=== PATIENT | male | born 1950 | race Caucasian/White ===

== ENCOUNTER 2018-01-28 10:58 | Inpatient (IN) | payer OTHER, MEDICARE ==
[~2018-01-28] VITALS: Ht 175.3 cm; Wt 90.3 kg
[2018-01-28] VITALS (8 sets, daily range): BP systolic 106–157; BP diastolic 41–105
[2018-01-28] MEDS ORDERED: IV NS 0.9% 500 ML BAG IV ONE (11:30)
--- NOTE | 2018-01-28 11:30 | NUR ---
AIMEE FROM [facility]=[id number] RECTAL TEMP, TYLENOL WAS GIVEN IN THE FACILITY. NOTED VENT, TRACH, OBTUNDED. RT AT BS. SEEN BY MD FOR EVAL. SAFETY AND COMFORT MEASURES PROVIDED.
--- NOTE | 2018-01-28 11:31 | NUR ---
NOTED RFA 22G IV ACCESS HAND PACKER/PACKAGER.
[2018-01-28 11:41] LABS: BASOPHILS # (AUTO) 0.1 /CMM (0.0-0.2); EOSINOPHILS % (AUTO) 2.2 % (0.0-6.0); LYMPHOCYTES # (AUTO) 1.1 /CMM (0.8-4.8); LYMPHOCYTES % (AUTO) 10.1 % (20.0-44.0); MEAN CORPUSCULAR HEMOGLOBIN 29 PG (26.0-33.0); MEAN CORPUSCULAR HGB CONC 33 g/dl (31.0-36.0); MEAN CORPUSCULAR VOLUME 86 fL (80-96); MONOCYTES # (AUTO) 0.5 /CMM (0.1-1.30); MONOCYTES % (AUTO) 4.8 % (2.0-12.0); NEUTROPHILS # (AUTO) 9.2 /CMM (1.8-8.9); NEUTROPHILS % (AUTO) 81.9 % (43.0-81.0); PLATELET COUNT (AUTO) 174 /CMM (150-450); RDW COEFFICIENT OF VARIATION 16.5 (11.5-15.0); RED BLOOD CELL COUNT(AUTO) 2.36 MIL/uL (4.5-6.0); WHITE BLOOD COUNT (AUTO) 11.1 K/uL (4.3-11.0)
[2018-01-28 11:44] LABS: HEMATOCRIT 20 % (39-51)
[2018-01-28 11:45] LABS: INR 1.16 (0.85-1.15)
[2018-01-28 11:47] LABS: HEMOGLOBIN 6.8 g/dL (13.5-17.5)
[2018-01-28 11:50] LABS: ALANINE AMINOTRANSFERASE 18 U/L (12-78); ALKALINE PHOSPHATASE 141 U/L (46-116); ASPARTATE AMINOTRANSFERASE 30 U/L (15-37); BILIRUBIN,DIRECT 0.2 mg/dL (0.0-0.2); BILIRUBIN,TOTAL 0.5 mg/dL (0.2-1.0); CALCIUM, SERUM 9.4 mg/dL (8.5-10.1); CARBON DIOXIDE 27 mmol/L (21-32); CHLORIDE 101 mmol/L (98-107); CREATININE 4.2 mg/dL (0.6-1.3); GLUCOSE 128 mg/dL (74-106); POTASSIUM 4.1 mmol/L (3.5-5.1); SODIUM SERUM 138 mmol/L (136-145); TOTAL PROTEIN, SERUM 8.2 g/dL (6.4-8.2); UREA NITROGEN, BLOOD 68 mg/dL (7-18)
[2018-01-28 11:52] LABS: TROPONIN I 0.236 ng/mL (0.00-0.056)
--- NOTE | 2018-01-28 12:00 | NUR ---
PT NOTED IN SOILED DIAPER, CLEANED AND CHANGED. KEPT CLEAN AND COMFORTABLE.
--- NOTE | 2018-01-28 12:04 | NUR ---
MD AT BS WITH FAMILY AND UPDATED WITH POC.
--- NOTE | 2018-01-28 12:05 | NUR ---
FAMILY MEMBERS SIGNED BLOOD CONSENT. VERBALIZES UDNERSTANDING.
--- NOTE | 2018-01-28 12:10 | NUR ---
IN AND OUT CATH DONE- NO OUTPUT NOTED.
--- NOTE | 2018-01-28 12:19 | NUR ---
Contact INFO: Feranndez (Son) [phone] Jeronimo (Daughter) [phone]
--- NOTE | 2018-01-28 12:22 | NUR ---
CALLED NURSE SUP FOR TELE BED
[2018-01-28] MEDS ORDERED: PROT946L GT (12:33)
[2018-01-28] MEDS ORDERED: VANC1VIA IV (12:33)
[2018-01-28] MEDS ORDERED: ONDA4TAB5 GT (12:33)
[2018-01-28] MEDS ORDERED: FOLI0.8T23 GT (12:33)
[2018-01-28] MEDS ORDERED: DIPH50CA37 GT (12:33)
[2018-01-28] MEDS ORDERED: HYDR-552 GT ×2 (12:33)
[2018-01-28] MEDS ORDERED: IPRA3AMP23 IH ×2 (12:33)
[2018-01-28] MEDS ORDERED: MERO500V3 IV (12:33)
[2018-01-28] MEDS ORDERED: PANT40TA2 GT (12:33)
--- NOTE | 2018-01-28 12:35 | NUR ---
DR. JAMES MARTINEZ AT AND ORDERED- NO BP AND BLOOD DRAW ON BILATERAL UPPER EXTREMITIES.
[2018-01-28] MEDS ORDERED: NUT.237L67 GT (12:37)
--- NOTE | 2018-01-28 13:03 | NUR ---
REPORT GIVEN TO ANNEL VINSON FOR TELE 329.
[2018-01-28 13:14] LABS: BAND % (MANUAL) 1 % (0.0-5.0); EOSINOPHILS % (MANUAL) 3 % (0-4); LYMPHOCYTES % (MANUAL) 6 % (16-48); MONOCYTES % (MANUAL) 4 % (0-11.0); NEUTROPHILS % (MANUAL) 86 (42-76)
--- NOTE | 2018-01-28 13:20 | NUR ---
PATTERN ASSEMBLER NOTES RECEIVED PATIENT FROM ER. ADMITTED FROM [facility] D/T FEVER OF 100.7F. PATIENT IS ALERT AND ORIENTED X0. NONVERBAL. ONLY RESPONDS TO TOUCH/LIGHT PAIN. BEDFAST. IN STABLE CONDITION. NO ACUTE DISTRESS. NOTED WITH AN IV LINE ON RIGHT FA #22. INTACT AND PATENT. PATIENT ALSO WITH GT - INTACT AND PATENT. ON VENT WITH FI02 40%, TIDAL VOLUME 500ML, AND PEEP 5 CMH2O. VITAL SIGNS TAKEN BP 140/98, HR 73, 98.8F, RR 18, O2SAT 100%. ALL OTHER NEEDS CARED FOR. CALL LIGHT WITHIN REACH. BED ON LOWEST LOCKED POSITION. WILL CONTINUE TO MONITOR.
[2018-01-28] MEDS ORDERED: ONDANSETRON 4 MG TAB.RAPDIS GT PRN (17:30)
[2018-01-28] MEDS ORDERED: NEPRO VAN 237 ML CAN GT SCH (17:30)
[2018-01-28] MEDS ORDERED: IPRATROPIUM NEB FS 0.5 MG/2.5 ML AMPUL.NEB NEB PRN (17:30)
[2018-01-28] MEDS ORDERED: FEE PK DOSING 1 MIN EA MC ONE (18:00)
[2018-01-28] MEDS ORDERED: ALBUTEROL FS 2.5 MG/0.5 ML VIAL.NEB NEB PRN (18:00)
--- NOTE | 2018-01-28 18:51 | NUR ---
HEAD OF COMMISSION DEPARTMENT CLOSING NOTES PATIENT IN BED WITH EYES CLOSED. PATIENT IS ALERT AND ORIENTED X0. NONVERBAL. ONLY RESPONDS TO TOUCH/LIGHT PAIN. BEDFAST. IN STABLE CONDITION. NO ACUTE DISTRESS. NOTED WITH AN IV LINE ON RIGHT FA #22. INTACT AND PATENT. PATIENT ALSO WITH GT - INTACT AND PATENT. ON VENT WITH FI02 40%, TIDAL VOLUME 500ML, AND PEEP 5 CMH2O. VITAL SIGNS TAKEN BP 140/98, HR 73, 98.8F, RR 18, O2SAT 100%. PATIENT HAS A RIGHT AND LEFT FOREARM GRAFT FOR DIALYSIS BUT ONLY THE LEFT SIDE WORKS. PATIENT IS CURRENTLY RECEIVING DIALYSIS WELL 1 UNIT OF BLOOD TRANSFUSION D/T H&H OF 6.03/26. PER MD, NO BLOOD DRAW AND BP CHECK ON BOTH ARMS - CURRENTLY USING JUST THE RIGHT LEG. DR. MARTINEZ WITH ORDERS TO CONTINUE MEDICATIONS FROM [facility] FOR TOMORROW AM. SKIN CHECK RENDERED. ALL OTHER NEEDS CARED FOR. CALL LIGHT WITHIN REACH. BED ON LOWEST LOCKED POSITION. WILL ENDORSE TO ONCOMING NURSE FOR CONTINUITY OF CARE.
--- NOTE | 2018-01-28 19:18 | NUR ---
LABORATORY EQUIPMENT CLEANER NOTES 1 UNIT PRBC TRANSFUSED WITH DIALYSIS ORDERED BY DR. MARTINEZ, TOLERATED WELL, VITALS STABLE.
--- NOTE | 2018-01-28 19:30 | NUR ---
RN OPENING NOTES RECEIVED PT IN BED, EYES CLOSED, AROUSABLE TO TOUCH/LIGHT PAIN, IN NO ACUTE DISTRESS, NON VERBAL, ON VENT WITH O2 SAT @ 98%, ON TELE MONITORING WITH SR @ 60S-70S. PT IN STABLE CONDITION, S/P HD WITH 2L OUT PER REPORT OF HD NURSE. PT WITH IVP LINE ON RFA G#22, INTACT AND PATENT. RECEIVED REPORT FROM AM SHIFT NURSE AND PER MED REC, PT HAS RECEIVED VANCOMYCIN TODAY PRIOR TO ADMISSION SO THERE IS NO NEED TO ADMINISTER VANCO POST HD. ALL PATIENT'S NEEDS ATTENDED TO AT THIS TIME. WILL CONTINUE TO MONITOR.
[2018-01-28] MEDS: IPRATROPIUM NEB FS 0.5 MG/2.5 ML AMPUL.NEB NEB SCH (19:38)
[2018-01-28] MEDS: ALBUTEROL FS 2.5 MG/0.5 ML VIAL.NEB NEB SCH (19:39)
[2018-01-28] MEDS: NEPRO 1,000 ML BOTTLE GT PRN (20:26)
[2018-01-29] VITALS (7 sets, daily range): BP systolic 67–153; BP diastolic 40–93
[2018-01-29] MEDS: ALBUTEROL FS 2.5 MG/0.5 ML VIAL.NEB NEB SCH ×4 (01:04→20:00)
[2018-01-29] MEDS: IPRATROPIUM NEB FS 0.5 MG/2.5 ML AMPUL.NEB NEB SCH ×4 (01:04→20:00)
--- NOTE | 2018-01-29 01:20 | NUR ---
RN NOTE PATIENT NOTED WITH LOOSE WATERY STOOL. RECEIVED ORDER TO TEST FOR STOOL FOR CDIFF. SPECIMEN PICKED UP BY PHARMACY PER C-DIFF PROTOCOL.
[2018-01-29] MEDS: HYDROCODONE/APAP 5/325MG 1 EACH TABLET GT PRN (01:39)
[2018-01-29] MEDS: diphenhydrAMINE HCL 50 MG CAPSULE PO PRN (05:53)
--- NOTE | 2018-01-29 06:23 | NUR ---
RN CLOSING NOTES PATIENT IN BED, ASLEEP, AROUSABLE BY TOUCH. PT IS ON VENT WITH TRACH, O2 SAT @ 94-100%. IN NO ACUTE DISTRESS AT THIS TIME, AFEBRILE. PT TURNED AND REPOSITIONED [id number], DRESSINGS CHANGED, HEELS OFFLOADED. PT IS RECEIVING GTF ORDERED AND IS TOLERATING WELL. ALL PATIENT'S NEEDS ATTENDED TO THROUGHOUT THE SHIFT, WILL ENDORSE TO AM SHIFT NURSE FOR CONTINUITY OF CARE.
[2018-01-29] MEDS: PANTOPRAZOLE 40 MG/PACK PACK GT SCH (07:14)
--- NOTE | 2018-01-29 07:30 | NUR ---
MANUFACTURING QUALITY ENGINEER OPENING NOTES. PT RECEIVED EYES OPEN NON VERBAL. PT TRACH AND VENT DEPENDEDNT, SETTINGS CORRECT ALARMS ON AND PLUGGED TO RED P.POINTS. PT WITHOUT S/S OF RESP DISTRESS, 2NDARY CONT. PUSLE OX IN.SITU AND OPERATIONAL. PT WITHOUT S/S OF PAIN OR DISCOMFORT. PT APPEARS YELLOWED AND PALE. PT REPOSITIONED. PT TEMP 99.7, COOLING MEASURES CONTINUED. PT BP UNAVAILABLE ON BI LAT LE X3RN WITH AUTO OR MANUAL. LIMBS WARM TO TOUCH. PT MOVING, SCRATCHING AND EYES INTERMITTENTLY OPEN. PT WITH IVC AT L FA INTACT AND SALINE FLUSH PATENT. PT WITH BI LAT UE HD CATH WITH NAD. G TUBE INTACT AND OPERATIONAL. PT BED IN LOWEST LOCKED POSITION WITH HANDRAILSX4, HOB ELEVATED. WILL CONTINUE POC.
[2018-01-29] MEDS: HYDROCODONE/APAP 5/325MG 1 EACH TABLET GT SCH (09:00)
[2018-01-29] MEDS ORDERED: MEROPENEM 500 MG VIAL IV SCH (09:00)
[2018-01-29] MEDS ORDERED: VANCOMYCIN 1 GM VIAL IV SCH (09:00)
[2018-01-29] MEDS: PROSOURCE / PROSTAT (PYXIS) 30 ML UDC GT SCH (09:09)
[2018-01-29] MEDS: MEROPENEM 500 MG in IV NS 0.9% 50 ML IV SCH (09:10)
[2018-01-29] MEDS: VIT B CMPLX 3/FA/VIT C/BIOTIN 1 TAB TABLET GT SCH (09:10)
[2018-01-29 09:35] LABS: BASOPHILS # (AUTO) 0.1 /CMM (0.0-0.2); BASOPHILS % (AUTO) 0.5 % (0.0-2.0); EOSINOPHILS % (AUTO) 1.9 % (0.0-6.0); HEMATOCRIT 24 % (39-51); HEMOGLOBIN 7.5 g/dL (13.5-17.5); LYMPHOCYTES # (AUTO) 1.2 /CMM (0.8-4.8); LYMPHOCYTES % (AUTO) 12.1 % (20.0-44.0); MEAN CORPUSCULAR HEMOGLOBIN 28 PG (26.0-33.0); MEAN CORPUSCULAR HGB CONC 32 g/dl (31.0-36.0); MEAN CORPUSCULAR VOLUME 88 fL (80-96); MONOCYTES # (AUTO) 0.6 /CMM (0.1-1.30); MONOCYTES % (AUTO) 6.2 % (2.0-12.0); NEUTROPHILS # (AUTO) 8.1 /CMM (1.8-8.9); NEUTROPHILS % (AUTO) 79.3 % (43.0-81.0); PLATELET COUNT (AUTO) 157 /CMM (150-450); RDW COEFFICIENT OF VARIATION 17.4 (11.5-15.0); RED BLOOD CELL COUNT(AUTO) 2.69 MIL/uL (4.5-6.0); WHITE BLOOD COUNT (AUTO) 10.2 K/uL (4.3-11.0)
[2018-01-29 09:36] LABS: CALCIUM, SERUM 8.8 mg/dL (8.5-10.1); CREATININE 3.6 mg/dL (0.6-1.3); POTASSIUM 3.8 mmol/L (3.5-5.1)
[2018-01-29 09:45] LABS: TROPONIN I 0.254 ng/mL (0.00-0.056)
--- NOTE | 2018-01-29 10:10 | NUR ---
BALLOON DIPPER NOTES. PT WITH CRITICAL LAB RESULT- LACTIC 2.7. MESSAGE LEFT WITH MD JUAN BOYD GROUP ANSWERING SERVICE. AWAITING RESPONSE.
--- NOTE | 2018-01-29 10:45 | NUR ---
VAPOR COATER NOTES. MD CONTACTED LEFT MESSAGE WITH SERVICE, AWAITING RESPONSE. TEXTED WITH SECURE TEXTING FROM CN PHONE.
[2018-01-29 10:57] LABS: THYROID STIMULATING HORMONE 7.373 uIU/mL (0.358-3.74)
--- NOTE | 2018-01-29 11:05 | NUR ---
SUPERINTENDENT COLLIERY NOTES. RT RV PT- PT OK.
--- NOTE | 2018-01-29 11:20 | NUR ---
TRANSPORT OPERATIONS INSPECTOR NOTES. MD CONTACTED LEFT MESSAGE, NOW NUMBER 3 WITH SERVICE, AWAITING RESPONSE.
--- NOTE | 2018-01-29 15:00 | NUR ---
SHELL SORTER NOTES. PT WITH EPISODE OF TACHYCARDIA 125. TELE IN PLACE OPERATIONS SUPERVISOR AWARE.
[2018-01-29] MEDS ORDERED: IV NS 0.9% 500 ML IV STA (15:43)
[2018-01-29] MEDS ORDERED: ALBUMIN 25% 25 GM in PREMIX 1 EA IV ONE (17:00)
[2018-01-29] MEDS: NEPRO 1,000 ML BOTTLE GT PRN (17:23)
[2018-01-29] MEDS: MIDODRINE HCL (5MG) 5 MG TABLET PO SCH (17:25)
[2018-01-29] MEDS ORDERED: PERMETHRIN 5% CRM 60 GM TUBE TP ONE (19:00)
--- NOTE | 2018-01-29 19:15 | NUR ---
RN OPENING NOTES RECEIVED PT IN BED, ON VENT, IN NO ACUTE DISTRESS AT THIS TIME, AFEBRILE, O2 SAT WNL, VSS AT BASELINE. RECEIVED REPORT FROM AM SHIFT NURSE THAT PT NEEDS A BLOOD TRANSFUSION DUE TO LOW BP WHICH IS PT'S CHRONIC CONDITION PER MD, DR. SIMON. ALL PATIENT'S NEEDS ATTENDED TO AT THIS TIME. PATIENT RECEIVING GTF ORDERED. PLACED CALL LIGHT WITHIN EASY REACH. BED IN LOW POSITION AND LOCKED IN PLACE.WILL CONTINUE TO MONITOR PT.
--- NOTE | 2018-01-29 19:31 | NUR ---
TEL RN CLOSING. PT WITH TRACH AND VENT SETTING CONTINUED WITHOUT CHANGE, G TUBE AND IVC INTACT AND OPERATIONAL. PT WITHOUT DISTRESS OR DISCOMFORT. ALL DAY NURSE DUTIES ATTENDED TO. ENDORSED TO NIGHT NURSE AT BEDSIDE FOR KASSANDRA.
--- NOTE | 2018-01-29 20:01 | NUR ---
PATIENT RCVD TRACHED ON [facility] VENT WITH NOTED SETTINGS. VENT PLUGGED INTO RED OUTLET, VENT ALARMS SET AND AUDIBLE. CUFF PRESSURE CHECKED INDUSTRIAL SPRAY PAINTER. BREATHING TX GIVEN PER MD'S ORDERED. NO ADVERSE REACTION NOTED. SUCTIONED WITH MODERATE AMOUNT OF YELLOW/PARRISH THICK SECRETIONS. NO RESPIRATORY DISTRESS NOTED AT THIS TIME. AMBU BAG AT [facility]. WILL CONTINUE TO MONITOR.
[2018-01-29] MEDS: METRONIDAZOLE 500 MG TABLET PO SCH (20:26)
[2018-01-29] MEDS: FLUCONAZOLE (100 MG) 100 MG TABLET PO SCH (20:27)
--- NOTE | 2018-01-29 21:31 | NUR ---
RN NOTE PT NOTED TO HAVE TEMP OF 99.3. PAGED HISTOPATHOLOGY TECHNICIAN MD. WAITING FOR CALL BACK.
--- NOTE | 2018-01-29 21:38 | NUR ---
RN NOTE RECEIVED CALL FROM DR. SIMON WITH NEW ORDER FOR ACETAMINOPHEN 650 MG Q6 PRN TO BE GIVEN VIA GTUBE. INFORMED MD THAT PT HAS A NEW IVP LINE ON THE RIGHT WRIST WHERE THE NON WORKING HD GRAFT IS AND WILL USE SITE WHILE WAITING FOR MIDLINE INSERTION. OK WITH .
[2018-01-29] MEDS: ACETAMINOPHEN 325 MG TABLET PO PRN (21:57)
--- NOTE | 2018-01-29 23:47 | NUR ---
RN NOTE PATIENT STARTED ON BLOOD TRANSFUSION. VITAL SIGNS AT BASELINE. WILL CONTINUE TO MONITOR PT.
[2018-01-30] VITALS (40 sets, daily range): BP systolic 51–155; BP diastolic 14–111
[2018-01-30] MEDS: diphenhydrAMINE HCL 50 MG CAPSULE PO PRN (01:19)
[2018-01-30] MEDS: ALBUTEROL FS 2.5 MG/0.5 ML VIAL.NEB NEB SCH ×4 (02:36→19:29)
[2018-01-30] MEDS: IPRATROPIUM NEB FS 0.5 MG/2.5 ML AMPUL.NEB NEB SCH ×4 (02:37→19:29)
--- NOTE | 2018-01-30 03:12 | NUR ---
RN NOTE BLOOD TRANSFUSION ENDED COMPLETED. PT WITH NO NOTED ASE, AFEBRILE, VITAL SIGNS AT BASELINE. WILL CONTINUE TO MONITOR PT.
[2018-01-30] MEDS: METRONIDAZOLE 500 MG TABLET PO SCH ×2 (04:59→13:51)
--- NOTE | 2018-01-30 06:53 | NUR ---
RN NOTES PATIENT IN BED, REMAINS NON VERBAL, A&O X 0, WITH RFA IV PERIPHERAL LINE G#22, INTACT AND PATENT, GTF INFUSING ORDERED AND PT IS TOLERATING WELL, ON TELE MONITORING WITH SR WITH V-PACING @ 75. PT TURNED AND REPOSITIONED Q2H. PT WITH EPISODES OF HYPOTENSION THROUGHOUT THE SHIFT WHICH IS PT'S BASELINE. 1 PRBC TRANSFUSED WITHIN THE SHIFT WITH NO NOTED ADVERSE SIDE EFFECTS. PT AFEBRILE. ALL PATIENT'S NEEDS ATTENDED TO THROUGHOUT THE SHIFT. PLACED CALL LIGHT WITHIN REACH AND BED IN LOW POSITION AND LOCKED IN PLACE. WILL ENDORSE TO AM SHIFT NURSE FOR CONTINUITY OF CARE.
[2018-01-30] MEDS: PANTOPRAZOLE 40 MG/PACK PACK GT SCH (07:32)
--- NOTE | 2018-01-30 08:00 | NUR ---
CUSTOMER SERVICES SUPERVISOR NOTES PATIENT IN BED RESTING NO SOB OR ACUTE DISTRESS NOTED. PATIENT VENT DEPENDENT. VENT SETTINGS NOTED. PATIENT IN STABLE CONDITION. PERIPHERAL IV INTACT PATENT. BED IN LOW LOCKED POSITION. CALL LIGHT WITHIN REACH. WILL CONTINUE TO MONITOR.
[2018-01-30 08:59] LABS: BASOPHILS % (AUTO) 0.3 % (0.0-2.0); EOSINOPHILS % (AUTO) 2.6 % (0.0-6.0); HEMATOCRIT 27 % (39-51); HEMOGLOBIN 8.8 g/dL (13.5-17.5); LYMPHOCYTES # (AUTO) 0.9 /CMM (0.8-4.8); LYMPHOCYTES % (AUTO) 7.8 % (20.0-44.0); MEAN CORPUSCULAR HEMOGLOBIN 28 PG (26.0-33.0); MEAN CORPUSCULAR HGB CONC 33 g/dl (31.0-36.0); MEAN CORPUSCULAR VOLUME 87 fL (80-96); MONOCYTES # (AUTO) 0.6 /CMM (0.1-1.30); MONOCYTES % (AUTO) 5.2 % (2.0-12.0); NEUTROPHILS # (AUTO) 9.3 /CMM (1.8-8.9); NEUTROPHILS % (AUTO) 84.1 % (43.0-81.0); PLATELET COUNT (AUTO) 145 /CMM (150-450); RDW COEFFICIENT OF VARIATION 16.5 (11.5-15.0); RED BLOOD CELL COUNT(AUTO) 3.11 MIL/uL (4.5-6.0); WHITE BLOOD COUNT (AUTO) 11.1 K/uL (4.3-11.0)
[2018-01-30] MEDS ORDERED: EPOETIN ALFA (10,000 UNIT) 10,000 UNIT/ML VIAL SQ ONE (09:00)
[2018-01-30] MEDS: MIDODRINE HCL (5MG) 5 MG TABLET PO SCH ×3 (09:00→16:10)
[2018-01-30] MEDS: HYDROCODONE/APAP 5/325MG 1 EACH TABLET GT SCH (09:11)
[2018-01-30] MEDS: VIT B CMPLX 3/FA/VIT C/BIOTIN 1 TAB TABLET GT SCH (09:11)
[2018-01-30] MEDS: MEROPENEM 500 MG in IV NS 0.9% 50 ML IV SCH (09:11)
[2018-01-30] MEDS: FLUCONAZOLE (100 MG) 100 MG TABLET PO SCH (09:11)
[2018-01-30] MEDS: PROSOURCE / PROSTAT (PYXIS) 30 ML UDC GT SCH (09:11)
[2018-01-30 09:19] LABS: CALCIUM, SERUM 8.9 mg/dL (8.5-10.1); CREATININE 4.4 mg/dL (0.6-1.3); MAGNESIUM 2.2 mg/dL (1.8-2.4); PHOSPHORUS 5.9 mg/dL (2.5-4.9); POTASSIUM 3.8 mmol/L (3.5-5.1)
[2018-01-30] MEDS ORDERED: NEPRO 1,000 ML BOTTLE GT PRN (11:00)
[2018-01-30] MEDS: NEPRO 1,000 ML BOTTLE GT PRN (15:07)
--- NOTE | 2018-01-30 15:30 | NUR ---
MATERIALS ENGINEERING TECHNICIAN NOTES PATIENT NOTED WITH BP OF 69/40 PULSE 83 RESPIRATION OF 18 TEMP OF 98.3. PATIENT OPENS EYES TO PAINFUL STIMULI. PATIENT VENT TRACH DEPENDENT. DR. SIMON NOTIFIED WAITING FOR ORDERS. CHARGE NURSE MADE AWARE.
--- NOTE | 2018-01-30 15:45 | NUR ---
DOSIMETRIST NOTES HD CANCELLED DUE TO LOW BP.
--- NOTE | 2018-01-30 16:00 | NUR ---
ENGINEER GEOPHYSICAL LABORATORY NOTES PAGED DR. SIMON AGAIN ORDERS TO GIVE ALBUMIN 25% ALBUMIN 100ML. ORDERS NOTED AND CARRIED OUT. MIDODRINE ADMINISTERED SCHEDULED. WILL RECHECK AND REEVALUATE.
--- NOTE | 2018-01-30 16:30 | NUR ---
RICE DRIER NOTES BP RECHECK NOTED TO BE 60/40 PULSE [address] SIMON PAGED WAITING FOR CALL BACK. CHARGE NURSE MADE AWARE WAITING FOR CALL BACK.
[2018-01-30] MEDS ORDERED: ALBUMIN 25% 25 GM in PREMIX 1 EA IV PRN (17:00)
[2018-01-30] MEDS ORDERED: ALBUMIN 25% 25 GM in PREMIX 1 EA IV ONE (17:00)
--- NOTE | 2018-01-30 17:00 | NUR ---
HERB GROWER NOTES PAGED DR. SIMON AGAIN WAITING FOR CALL BACK. PATIENT ASYMPTOMATIC. OPENS EYES TO PAINFUL STIMULI. TRACH AND VENT DEPENDENT.
--- NOTE | 2018-01-30 17:30 | NUR ---
MANAGER GLOBAL NOTES PAGED DR. SIMON AGAIN FOR BP OF 68/40 PULSE 73 O2 SAT. 91%. WITH ORDERS TO TRANSFER PATIENT TO ICU. ORDERS NOTED AND CARRIED OUT. WAITING FOR BED FROM LOCKSTITCH BINDER.
--- NOTE | 2018-01-30 18:00 | NUR ---
CORPORATE SECURITY MANAGER NOTES PATIENT TRANSFERRED TO ICU ROOM 256 REPORT GIVEN TO NADINE VINSON. PATIENT IN FAIR CONDITION.
--- NOTE | 2018-01-30 18:20 | NUR ---
PATIENT RECEIVED TRACHED ON MECHANICAL VENTILATION. PORTEX [address] SX DONE. SMALL THICK WHITE SECRETIONS NOTED. TRACH SECURED AND PATENT AT ALL TIMES. VENT PLUGGED INTO RED OUTLET. ALARMS ON AND AUDIBLE. CHEPEU BAG @ HOB. NO DISTRESS NOTED. MONITORED CLOSELY. PULSE OX PROBE CONNECTED ON EAR. Addendum: 01/30/18 at 1821 by VINCE JACKSON RT Amended: Links added.
--- NOTE | 2018-01-30 19:35 | NUR ---
RN NOTES RECEIVED TRANSFER PT FROM [facility] DUE TO HYPOTENSION, WITH TRACH PORTEX 7 CONNECTED TO VENT AC 16 TV 500 FIO2 40% PEEP 5 BY RT. PT IS ABLE TO OPEN EYES. SR ON TELE MONITOR IV SITE ON VEE MIDLINE AND RFA G [address] MARTINEZ (MICA MACHINE OPERATOR) FOR AN ORDER . PT SBP AT THIS TIME IS < 60'S-70'S. SATURATION 95%.. KEPT PT CLEAN AND DRY. WILL CLOSELY MONITOR.
--- NOTE | 2018-01-30 20:20 | NUR ---
RN NOTES CALLED DR. CONLEY DUE TO ESL INSTRUCTOR MD DID NOT NOT CALL BACK YET. INFORMED ABOUT THE PATIENT BP AND PT STATUS. WAITING FOR THE CALL BACK.
--- NOTE | 2018-01-30 20:37 | NUR ---
RN NOTES CALLED DR. SIMON SINCE DR. SIMON ORDERED TO TRANSFER THE PT. TO ICU AND STILL WAITING FOR QUALITY ASSURANCE SUPERVISOR BODY TO CALL BACK WELL DR. CONLEY. WAITING FOR THEM TO CALL BACK. PT SBP AT THIS TIME STILL 70'S. TRACH AND VENT TOLERATED WELL.
--- NOTE | 2018-01-30 20:48 | NUR ---
RN NOTES RECEIVED AN ORDER FROM DR. CONLEY TO START NEOSYNEPHRINE TO KEEP SBP >80MMHG. NOTED AND CARRIED OUT ORDERS. LINH SIMPSON
[2018-01-30] MEDS: PHENYLEPHRINE 80 MG in IV D5W 250 ML IV PRN (21:18)
[2018-01-31] VITALS (84 sets, daily range): BP systolic 33–176; BP diastolic 16–86
[2018-01-31] MEDS ORDERED: PHENYLEPHRINE 10 MG/ML VIAL ONE (00:32)
[2018-01-31] MEDS: ALBUTEROL FS 2.5 MG/0.5 ML VIAL.NEB NEB SCH ×4 (00:44→19:50)
[2018-01-31] MEDS: IPRATROPIUM NEB FS 0.5 MG/2.5 ML AMPUL.NEB NEB SCH ×4 (00:44→19:50)
[2018-01-31] MEDS: PHENYLEPHRINE 80 MG in IV D5W 250 ML IV PRN ×2 (02:57→07:06)
--- NOTE | 2018-01-31 06:00 | NUR ---
RN NOTES LEFT A MESSAGE TO DR. CHAPARRO THAT PT MIGHT NEED AN A - LINE DUE TO DIFFUCULTY OF GETTING BP. MANUALLY AND IN AUTOMATIC MONITOR. ALL PULPABLE AREA TRIED BUT INEFFECTIVE. WILL CONTINUE TO MONITOR.
--- NOTE | 2018-01-31 07:00 | NUR ---
RN NOTES PT BP CLOSELY MONITOR, NEOSYNEPHRINE @ 300 MCG/MIN ONGOING. TITRATED ACCORDINGLY. PT IS ALERT NON VERBAL BUT SOMEWHAT FOLLOWS COMMAND. ON CONTACT ISOLATION DUE TO SCABIES ISOLATION PRECAUTION ALWAYS MET. AFEBRILE THROUGHOUT THE SHIFT. PT IS CLEAN AND DRY.ENDORSED CONTINUITY OF CARE TO AM NURSE.
--- NOTE | 2018-01-31 07:10 | NUR ---
received patient alert awake to name and light touch. patient nods in understanding and and follows commands. trach vent dependent per order tolerating well; no sob, difficulty breathing. patient nods itching is slightly better today but does have scratch gordon present over body will monitor skin; precautions in place. patient still npo unable to start tube feeding as patient has been supine throughout night. will monitor for ability to start feeding. tele v pacing 75. patient nods "no" to pain. bilateral heel protectors on and extremities elevated. patient placed right lateral. peripheral line right lower extremity in place clean dry patent. midline right upper arm in place clean dry patent. all ports flushed. mila running max 300mcg/min will titrate as tolerated. patent on isolation for scabies. pending updated wound consult pending due to sacral excoriation/evolution of redness. per dr mccoy patient tutu 80's and above acceptable continuing to monitor.
--- NOTE | 2018-01-31 07:30 | NUR ---
patient monitor bp showing 87/19. strong peripheral pulses, alert asymptomatic. took manual bp; patient bp is 102/56. Addendum: 01/31/18 at 1735 by KUMAR REED RN MANUAL DIFFICULT PATIENT PERIPHERAL PULSES VERY WEAK.
[2018-01-31] MEDS: MEROPENEM 500 MG in IV NS 0.9% 50 ML IV SCH (08:15)
[2018-01-31] MEDS: PROSOURCE / PROSTAT (PYXIS) 30 ML UDC GT SCH (08:15)
[2018-01-31] MEDS: HYDROCODONE/APAP 5/325MG 1 EACH TABLET GT SCH (08:15)
[2018-01-31] MEDS: MIDODRINE HCL (5MG) 5 MG TABLET PO SCH ×3 (08:15→16:12)
[2018-01-31] MEDS: FLUCONAZOLE (100 MG) 100 MG TABLET PO SCH (08:15)
[2018-01-31] MEDS: VIT B CMPLX 3/FA/VIT C/BIOTIN 1 TAB TABLET GT SCH (08:15)
[2018-01-31] MEDS: PANTOPRAZOLE 40 MG/PACK PACK GT SCH (08:15)
--- NOTE | 2018-01-31 08:50 | NUR ---
DR SIMON AT BEDSIDE. UPDATED MD ON DIFFICULTY OBTAINING ACCURATE BP ON PATIENT. AT TIMES ONLY ABLE TO GET READING ON RIGHT ARM MANUALLY. 104/[address] SIMON PLEASE ORDER A-LINE, PICC LINE AND BOLUS 1000NS BOLUS AND AFTER BOLUS RUN NS 50ML/HOUR MAINTENANCE FLUIDS.
[2018-01-31] MEDS ORDERED: IV NS 0.9% 1,000 ML IV PRN ×3 (09:00)
[2018-01-31] MEDS ORDERED: NOREPINEPHRINE 8 MG in IV D5W 500 ML IV PRN ×2 (09:00→10:30)
[2018-01-31] MEDS ORDERED: HYDROCORTISONE SOD SUCCINATE 100 MG/2 ML VIAL IV SCH (09:00)
--- NOTE | 2018-01-31 09:51 | NUR ---
WOUND CARE CONSULT WOUND CARE RECEIVED CONSULT FOR PU ON BUTTOCKS, BRUISES AND ESCHARS ON BILATERAL FEET. WOUND CARE WAS NOTIFIED TODAY BY SURGICAL TEAM THAT THIS WAS THEIR PATIENT AND THEY WOULD FOLLOW. WOUND CARE WILL DEFER SACRAL ASSESSMENT AND ALL TREATMENT PLANS TO SURGICAL TEAM AT THIS TIME. ALL PRESSURE ULCER PREVENTION MEASURES NOTED TO BE IN PLACE. PATIENT WITH CURRENT LENORA AT 11. 1ST STEP LOW AIRLOSS MATTRESS HAS BEEN ORDERED. WILL SEE PRN.
--- NOTE | 2018-01-31 10:00 | NUR ---
LOU ORTIZ AT BEDSIDE. EVAL COMPLETE. PER LOU XEROFORM AND MEPILEX TO SACRUM/BUTTOCKS AT THIS TIME. DR SAENZ AT BEDSIDE FOR EVAL. PER CONTINUE WITH MEPILEX AND OFFLOADING. PENDING TO GIVE SOLUCORTEF PER DR SIMON WAIT TO GIVE UNTIL AFTER BLOOD DRAW
--- NOTE | 2018-01-31 10:24 | NUR ---
PATIENT BP CONTINUES TO BE INACCURATE WITH BEDSIDE MONITORING. OBTAINED DOPPLER MANUAL BP RECEIVED 175/D. TITRATING MEET PER PROTOCOL
[2018-01-31] MEDS ORDERED: PHENYLEPHRINE 80 MG in IV D5W 250 ML IV PRN ×4 (10:30)
[2018-01-31] MEDS: NYSTATIN TOP POWDER 15 GM BOTTLE TP SCH ×2 (11:00→18:28)
[2018-01-31] MEDS: CLOTRIMAZOLE 1% 15 GM TUBE TP SCH ×2 (11:03→16:49)
[2018-01-31] MEDS: Z GUARD REMEDY 2 OZ OINT TP SCH (11:03)
[2018-01-31] MEDS: HYDROCORTISONE SOD SUCCINATE 100 MG/2 ML VIAL IV SCH ×3 (11:03→16:12)
[2018-01-31 11:13] LABS: BASOPHILS % (AUTO) 0.3 % (0.0-2.0); EOSINOPHILS % (AUTO) 2.2 % (0.0-6.0); HEMATOCRIT 30 % (39-51); HEMOGLOBIN 9.9 g/dL (13.5-17.5); LYMPHOCYTES # (AUTO) 0.7 /CMM (0.8-4.8); MEAN CORPUSCULAR HEMOGLOBIN 28 PG (26.0-33.0); MEAN CORPUSCULAR HGB CONC 33 g/dl (31.0-36.0); MEAN CORPUSCULAR VOLUME 87 fL (80-96); MONOCYTES # (AUTO) 0.7 /CMM (0.1-1.30); MONOCYTES % (AUTO) 6.1 % (2.0-12.0); NEUTROPHILS # (AUTO) 9.9 /CMM (1.8-8.9); NEUTROPHILS % (AUTO) 85.4 % (43.0-81.0); PLATELET COUNT (AUTO) 189 /CMM (150-450); RDW COEFFICIENT OF VARIATION 17.4 (11.5-15.0); RED BLOOD CELL COUNT(AUTO) 3.47 MIL/uL (4.5-6.0); WHITE BLOOD COUNT (AUTO) 11.6 K/uL (4.3-11.0)
--- NOTE | 2018-01-31 11:18 | NUR ---
CALLED KITCHEN FOR NEPHRO DELIVERY TO RESUME FEEDING
[2018-01-31 11:22] LABS: CALCIUM, SERUM 8.6 mg/dL (8.5-10.1); CREATININE 5.1 mg/dL (0.6-1.3); MAGNESIUM 2.1 mg/dL (1.8-2.4); PHOSPHORUS 6.3 mg/dL (2.5-4.9)
--- NOTE | 2018-01-31 11:30 | NUR ---
DR SIMON AWARE MONITOR AND AUTOMATIC BP INACCURATE AND WE ARE OBTAINING DOPPLER BLOOD PRESSURES.
--- NOTE | 2018-01-31 11:33 | NUR ---
NOTIFIED DR SIMON OF PATIENT NEWEST LABS, BUN, CR, ELECTROLYTES. PER MD NO HD TODAY. NO OTHER ORDERS.
[2018-01-31] MEDS: FLUDROCORTISONE 0.1 MG TABLET PO SCH ×2 (12:57→17:02)
[2018-01-31] MEDS: IV NS 0.9% 1,000 ML IV PRN (13:23)
[2018-01-31] MEDS: Z GUARD REMEDY 2 OZ OINT TP PRN ×2 (13:24→18:28)
--- NOTE | 2018-01-31 14:30 | NUR ---
PATIENT MEET HAS BEEN PAUSED AND MOST RECENT DOPPLER 84/D RIGHT ARM.
--- NOTE | 2018-01-31 15:16 | NUR ---
NOTIFIED DR SIMON WE HAVE STOPPED PATIENT MEET AND STILL GETTING SBP 60'S OR LOWER WITH AUTOMATIC BP READINGS HOWEVER DOPPLER BP MOST RECENT 100/D. PER DR AURORA PELAYO TO CONTINUE WITH DOPPLER SBP READINGS. Addendum: 01/31/18 at 1526 by KUMAR REED RN PER DR AURORA FISHER TO HOLD OFF ON A LINE INSERTION AT THIS TIME.
--- NOTE | 2018-01-31 15:31 | NUR ---
PER DR JAKE FISHER TO RESUME TUBE FEEDING NO S/S BLEEDING. PENDING FEEDING DELIVERY FROM NUTRITION
[2018-01-31] MEDS: NEPRO 1,000 ML BOTTLE GT PRN (16:00)
--- NOTE | 2018-01-31 16:51 | NUR ---
PATIENT MORE ALERT OPENING EYES ON HIS OWN, NODDING YES AND NO TO ALL QUESTIONS ASKED OF HIM AND MOVING UPPER EXTREMITIES ON HIS OWN.
[2018-01-31] MEDS: diphenhydrAMINE HCL 25 MG CAPSULE PO PRN (17:04)
--- NOTE | 2018-01-31 17:17 | NUR ---
PATIENT PULLED AT G TUBE; WILL OBTAIN X RAY TO CONFIRM PLACEMENT. PLACED RIGHT HAND MITTEN PATIENT PULLING AT TRACH, G TUBE, LEAD AND CONTINUES TO SCRATCH SELF CREATING MORE SORES. GAVE PATIENT BENADRYL FOR ITCHINESS.
--- NOTE | 2018-01-31 18:32 | NUR ---
ANN MARIE AT BEDSIDE. UPDATED ON PATIENT CONDITION, LABS, VS. NO NEW ORDERS
--- NOTE | 2018-01-31 18:34 | NUR ---
PATIENT LINENS CHANGED AGAIN. BED BATH COMPLETED AGAIN PATIENT CONTINUES TO HAVE DIARRHEA, WOUND CARE COMPLETED. IV SITE VEE INTACT PATENT AND CLEAN. VENT STABLE NO CHANGES. DUE TO PATIENT SEVERE PVD AUTOMATIC BP MACHINE NOT GETTING ACCURATE RESULTS, MANUAL BP UNABLE TO AUSCULTATE. DR SIMON AWARE WE ARE OBTAINING MORE ACCURATE DOPPLER SBP AND STATES TO CONTINUE GETTING THESE READINGS. PATIENT AWAKE TO NAME AND RIGHT WRIST MITTEN IN PLACE PATIENT TOLERATING WELL. SAFETY, SKIN, ISOLATION, AND ASPIRATION PRECAUTIONS ALL MONITORED THROUGHOUT DAY. WILL ENDORSE CARE TO RN FOR KASSANDRA
--- NOTE | 2018-01-31 19:20 | NUR ---
RN NOTES PT AWAKE SCRATCHING HIS BODY. ABLE TO FOLLOWS COMMAND. WITH TRACH PORTEX 7 CONNECTED TO VENT AC 16 TV 500 FIO2 40% PEEP 5, SATURATION 99% V -PACING ON TELE MONITOR VEE BERTHALKINE INTACT AND PATENT RUNING WITH NS @ 50 ML/HR. GTF HELD WAITING FOR KUB RESULT AT THIS TIME. RIGHT MITTENS KEPT IN PLACED TO PREVENT MORE INJURY TO SKIN AND PREVENT PULLING OUT MED. EQUIPMENT. DOPPLER USED TO CHECKED SBP PER MD ORDER. KEPT PT CLEAN AND DRY. CONTINUE TO MONITOR.
--- NOTE | 2018-01-31 22:40 | NUR ---
RN NOTES KUB RESULT REPORTED TO DR. SIMON WITH ORDER NOT TO FEED THE PATIENT YET. NOTED .
[2018-02-01] VITALS (65 sets, daily range): BP systolic 61–210; BP diastolic 16–148
[2018-02-01] MEDS: IPRATROPIUM NEB FS 0.5 MG/2.5 ML AMPUL.NEB NEB SCH ×4 (01:09→20:17)
[2018-02-01] MEDS: ALBUTEROL FS 2.5 MG/0.5 ML VIAL.NEB NEB SCH ×4 (01:09→20:17)
[2018-02-01] MEDS ORDERED: FLUDROCORTISONE 0.1 MG TABLET ONE (01:27)
[2018-02-01] MEDS: FLUDROCORTISONE 0.1 MG TABLET PO SCH ×3 (01:46→11:15)
[2018-02-01] MEDS: diphenhydrAMINE HCL 25 MG CAPSULE PO PRN ×2 (01:46→11:16)
--- NOTE | 2018-02-01 02:30 | NUR ---
RN NOTES STARTED MEET AT THIS TIME. DUE TO PT HYPOTENSION. DOPPLER/MANUAL BP = 74 RECHECKED FROM RIGHT WRIST SBP 64 MMHG. WILL CONTINUE TO MONITOR.
[2018-02-01 04:23] LABS: BASOPHILS % (AUTO) 0.1 % (0.0-2.0); EOSINOPHILS % (AUTO) 0.1 % (0.0-6.0); HEMATOCRIT 31 % (39-51); LYMPHOCYTES # (AUTO) 0.4 /CMM (0.8-4.8); LYMPHOCYTES % (AUTO) 2.8 % (20.0-44.0); MEAN CORPUSCULAR HEMOGLOBIN 28 PG (26.0-33.0); MEAN CORPUSCULAR HGB CONC 32 g/dl (31.0-36.0); MEAN CORPUSCULAR VOLUME 87 fL (80-96); MONOCYTES # (AUTO) 0.1 /CMM (0.1-1.30); NEUTROPHILS # (AUTO) 12.4 /CMM (1.8-8.9); PLATELET COUNT (AUTO) 185 /CMM (150-450); RDW COEFFICIENT OF VARIATION 17.3 (11.5-15.0); RED BLOOD CELL COUNT(AUTO) 3.53 MIL/uL (4.5-6.0); WHITE BLOOD COUNT (AUTO) 12.9 K/uL (4.3-11.0)
[2018-02-01 06:07] LABS: CALCIUM, SERUM 8.8 mg/dL (8.5-10.1); CREATININE 5.6 mg/dL (0.6-1.3); MAGNESIUM 2.3 mg/dL (1.8-2.4); POTASSIUM 4.4 mmol/L (3.5-5.1)
--- NOTE | 2018-02-01 06:20 | NUR ---
RN NOTES HOLD MEDICINE AT 6AM , BOWEL SOUND/GURGLING SOUND NOT HEARD. WILL FOLLOW UP MD
--- NOTE | 2018-02-01 06:40 | NUR ---
RN NOTES PT STABLE AT THIS TIME CONTINUE TO MONITOR BLOOD PRESSURE, AFEBRILE. VS ABLE TO LAST BP 147/77 MMHG. WITH MEET @ 30 MCG/MIN. STRICTLY OBSERVED FOR CONTACT ISOLATION DUE TO SCABIES. ISOLATION PRECAUTION ALWAYS MET. PT IS CLEAN AND DRY. GTF HELD MD ORDER DUE TO KUB RESULT. ENDORSED CONTINUITY OF CARE TO AM NURSE.
--- NOTE | 2018-02-01 07:10 | NUR ---
received patient alert awake to name and light touch. patient nods in understanding and and follows commands. trach vent dependent per order tolerating well; no sob, difficulty breathing. patient with right hand mitten for skin protection and safety. patient still npo per dr boykin order; will f/u for other orders related to kub results. tele v pacing 75. patient nods "no" to pain. getting prn benadryl for itchiness. bilateral heel and extremities elevated. midline right upper arm in place clean dry patent. all ports flushed. mila paused by negra rn; will monitor. patent on isolation for scabies; precautions followed. per dr mccoy patient tutu 80's and above acceptable continuing to monitor and or map 62 and above. patient needs in reach. per request turned news on for patient comfort. will monitor
[2018-02-01] MEDS: Z GUARD REMEDY 2 OZ OINT TP SCH (08:02)
[2018-02-01] MEDS: HYDROCORTISONE SOD SUCCINATE 100 MG/2 ML VIAL IV SCH (08:02)
[2018-02-01] MEDS: MEROPENEM 500 MG in IV NS 0.9% 50 ML IV SCH (08:04)
[2018-02-01] MEDS: NYSTATIN TOP POWDER 15 GM BOTTLE TP SCH ×2 (08:05→16:22)
[2018-02-01] MEDS: CLOTRIMAZOLE 1% 15 GM TUBE TP SCH ×2 (08:05→16:20)
--- NOTE | 2018-02-01 08:17 | NUR ---
dr mccoy at bedside aware what monitor stating 62/38 however doppler bp showing 210/D. Per dr mccoy bc of patient medical problems will not be able to get accurate bp reading on automatic. will continue with doppler bp.
--- NOTE | 2018-02-01 08:48 | NUR ---
MESSAGE TO DR JOSEPH TO NOTIFY OF PATIENT KUB RESULTS. NPO AT THIS TIME. BOWEL SOUNDS HYPOACTIVE. STILL WITH ACTIVE DIARRHEA HOWEVER MORE MINIMAL THAN PREVIOUS. PER MD KEEP PATIENT NPO HOWEVER OK TO RESUME MEDICATIONS. HE WILL SEE PATIENT. MESSAGE LEFT FOR DR SIMON TO NOTFY OF PATIENT CRITICAL LABS THIS AM.
--- NOTE | 2018-02-01 08:50 | NUR ---
PER DR SIMON PATIENT TO HAVE HD TODAY. NO NEW ORDERS
[2018-02-01] MEDS: PROSOURCE / PROSTAT (PYXIS) 30 ML UDC GT SCH (08:59)
[2018-02-01] MEDS: FLUCONAZOLE (100 MG) 100 MG TABLET PO SCH (08:59)
[2018-02-01] MEDS: HYDROCODONE/APAP 5/325MG 1 EACH TABLET GT SCH (08:59)
[2018-02-01] MEDS: VIT B CMPLX 3/FA/VIT C/BIOTIN 1 TAB TABLET GT SCH (08:59)
[2018-02-01] MEDS: PANTOPRAZOLE 40 MG/PACK PACK GT SCH (08:59)
[2018-02-01] MEDS: MIDODRINE HCL (5MG) 5 MG TABLET PO SCH ×3 (09:00→17:00)
[2018-02-01] MEDS: IV NS 0.9% 1,000 ML IV PRN (10:40)
[2018-02-01] MEDS: Z GUARD REMEDY 2 OZ OINT TP PRN ×2 (11:16→16:18)
--- NOTE | 2018-02-01 11:30 | NUR ---
DR JOSEPH AT BEDSIDE. PER OK TO CONTINUE TO HOLD TUBE FEEDING TODAY; OK GIVE MEDS. PER MD REPEAT KUB IN AM FOR F/U. NOTIFY IN AM IF PATIENT HAS BM.
--- NOTE | 2018-02-01 12:00 | NUR ---
DR MARTINEZ AT BEDSIDE. UPDATED MD ON PATIENT LABS, VS. MD AWARE INACCURATE BP READINGS FOR PATIENT. MD STATES PATIENT BP LIVES IN 70'S OK FOR 70'S SBP. DOPPLER READING CONSISTENTLY ELEVATED 140'S-200SBP MD AWARE. WILL CONTINUE TO MONITOR. PER MD DOWNGRADE WHEN POSSIBLE. NO PICC LINE PER MD
[2018-02-01] MEDS: SEVELAMER CARBONATE 0.8 GM POWD.PACK GT SCH ×2 (12:45→17:24)
--- NOTE | 2018-02-01 15:30 | NUR ---
able to obtain accurate bp on right lower calf confirmed with doppler and automatic.
--- NOTE | 2018-02-01 18:18 | NUR ---
hd rn at bedside.
--- NOTE | 2018-02-01 18:36 | NUR ---
patient stable. bp stable. all needs assessed and met. patient nods head no to pain. hd in progress at this time. skin, aspiration, and safety precautions in place and monitored throughout day. iso precautions observed. patient skin frequently checked and monitored for soiling. tolerating vent no sob, difficulty breathing. care will be endorsed to rn for venu
--- NOTE | 2018-02-01 20:00 | NUR ---
Received patient drowsy opes eyes to name follows simple commands.Denies pain.HD in progress.VS stable.Maintained on same prescribed vent support and settings well tolerated.SPO2 100%.V-paced 70'-80's.NPO status.GT clamped and patent.IV hydration with NS infusing well via frances midline.Site intact.With multiple skin issues dressing clean dry and intact.Turned and repositioned.Contact isolation precaution observed.
--- NOTE | 2018-02-01 21:05 | NUR ---
HD done.1Liter out per HD KAREL Flores.TARUN HD cath with dressing C/D/I.
[2018-02-01] MEDS: HYDROCODONE/APAP 5/325MG 1 EACH TABLET GT PRN (21:32)
[2018-02-01] MEDS: VANCOMYCIN POST DIALYSIS 500MG IV PRN ×2 (21:53)
[2018-02-02] VITALS (46 sets, daily range): BP systolic 52–236; BP diastolic 21–132
--- NOTE | 2018-02-02 | NUR ---
Patient resting vs stable.Turned and repositioned.
[2018-02-02] MEDS: ALBUTEROL FS 2.5 MG/0.5 ML VIAL.NEB NEB SCH ×4 (01:53→19:34)
[2018-02-02] MEDS: IPRATROPIUM NEB FS 0.5 MG/2.5 ML AMPUL.NEB NEB SCH ×4 (01:53→19:34)
--- NOTE | 2018-02-02 04:00 | NUR ---
Patient awake vs remains stable.Bed bath rendered.Wound dressing changed per protocol.GT site leaking small amount yellowish drainage.Site cleansed and dressing changed.Turned and repositioned.
--- NOTE | 2018-02-02 04:48 | NUR ---
PT REC'D TRACHED PORTEX SZ 7 VIA [facility] VENT SETTINGS CHARTED. NO RESP DISTRESS NOTED. NO CHANGES MADE THROUGHOUT SHIFT. TRACH IS MIDLINE AND PATENT. SX'D THICK MOD AMT OF YELLOW SECRETIONS. ALARMS ARE SET AND AUDIBLE, VENT PLUGGED INTO RED OUTLET. AMBU BAG BEDSIDE. WILL CONTINUE TO MONITOR. Addendum: 02/02/18 at 0450 by SYEDA ALTMAN RT Amended: Links added.
[2018-02-02] MEDS: PANTOPRAZOLE 40 MG/PACK PACK GT SCH (07:30)
--- NOTE | 2018-02-02 07:39 | NUR ---
INITIAL KNITTED GOODS SHAPER NOTE RCVD PT AWAKE AND ALERT, ABLE TO FOLLOW COMMANDS, MITTEN ON RIGHT HAND TO PREVENT PT FROM SCRATCHING AND OPEN HIS FRAGILE SKIN. NO SIGNS OF DISTRESS OBSERVED. V-PACING ON TELE. TOLERATING ORDERED VENT SETTINGS. G-TUBE PLACEMENT VERIFIED BY AUSCULTATION/ASPIRATION. NO RESIDUAL OBTAINED. G-TUBE CLAMPED AT THIS TIME. MIDLINE ON VEE. C/D/I/PATENT. NO S/O INFILTRATION/PHLEBITIS OBSERVED. WILL CONTINUE TO MONITOR PT FOR SAFETY AND COMFORT. BED IN LOW AND LOCKED POSITION. CALL LIGHT WITHIN REACH. DR. HOLLINGSWORTH PAGED REGARDING KUB RESULTS. AWAITING CALL BACK.
[2018-02-02] MEDS: SEVELAMER CARBONATE 0.8 GM POWD.PACK GT SCH ×3 (08:00→18:05)
--- NOTE | 2018-02-02 08:06 | NUR ---
INCIDENT ANALYST NOTE RCVD CALL BACK FROM DR. JAKE HUGO RESULTS GIVEN OVER THE PHONE. HE RECOMMENDED FOR ATTENDING TO CONSULT WITH SURGERY. MEANWHILE KEEP PT NPO INCLUDING MEDS. WILL CONTINUE TO MONITOR.
[2018-02-02] MEDS: MEROPENEM 500 MG in IV NS 0.9% 50 ML IV SCH (08:14)
[2018-02-02] MEDS: Z GUARD REMEDY 2 OZ OINT TP SCH (08:15)
[2018-02-02] MEDS: NYSTATIN TOP POWDER 15 GM BOTTLE TP SCH ×2 (08:15→18:05)
[2018-02-02] MEDS: VIT B CMPLX 3/FA/VIT C/BIOTIN 1 TAB TABLET GT SCH (08:36)
[2018-02-02] MEDS: MIDODRINE HCL (5MG) 5 MG TABLET PO SCH ×3 (08:37→16:37)
[2018-02-02] MEDS: HYDROCODONE/APAP 5/325MG 1 EACH TABLET GT SCH (08:37)
[2018-02-02] MEDS: FLUCONAZOLE (100 MG) 100 MG TABLET PO SCH (08:37)
[2018-02-02] MEDS: PROSOURCE / PROSTAT (PYXIS) 30 ML UDC GT SCH (08:37)
[2018-02-02] MEDS: VANCOMYCIN POST DIALYSIS 500MG IV PRN ×2 (09:05)
[2018-02-02] MEDS: CLOTRIMAZOLE 1% 15 GM TUBE TP SCH ×2 (10:26→18:05)
[2018-02-02] MEDS ORDERED: ALBUMIN 25% 25 GM in PREMIX 1 EA IV ONE (12:00)
--- NOTE | 2018-02-02 14:37 | NUR ---
MECHANICAL RELIABILITY ENGINEER NOTE PT TOLERATED DIALYSIS WELL, NO NEED TO GIVE ALBUMIN.
[2018-02-02] MEDS ORDERED: ACETAMINOPHEN 650 MG/20.3 ML UDC NG PRN (16:30)
[2018-02-02] MEDS: ACETAMINOPHEN 325 MG TABLET PO PRN (16:37)
[2018-02-02] MEDS: IV NS 0.9% 1,000 ML IV PRN (16:37)
[2018-02-02] MEDS: LACTOBACILLUS RHAMNOSUS GG 1 EACH CAP.SPRINK PO SCH (16:37)
--- NOTE | 2018-02-02 18:31 | NUR ---
HOUSING INSTALLER NOTE SPOKE WITH DR. JOSEPH OVER THE PHONE EARLIER THIS AFTERNOON, HE RECOMMENDED TO START GIVING MEDS THROUGH G-TUBE AND AVOID NARCOTICS. DR. MARTINEZ CONTACTED TO GET ORDER FOR TYLENOL SINCE PT WAS C/O ABDOMINAL PAIN. DR. MARTINEZ PROVIDED ORDER FOR TYLENOL. PT REMAINS STABLE TOLERATING VENT SETTINGS WELL. NO S/O DISTRESS OBSERVED. PT'S CARE WILL BE ENDORSED TO APPLIANCE INSTALLER RN FOR CONTINUITY OF CARE. BED IN LOW AND LOCKED POSITION. CALL LIGHT WITHIN REACH.
--- NOTE | 2018-02-02 19:36 | NUR ---
BUTCHER FISH NOTE PT TRANSFERRED TO ICU IN STABLE CONDITION WITH RN/RT AT BEDSIDE. PT TOLERATED TRANSFER WELL. REPORT GIVEN AT BEDSIDE TO KAREL BRANNON.
--- NOTE | 2018-02-02 20:00 | NUR ---
RN TEL INITIAL NOTE RECEIVED PT FROM ICU @ 1945, REPORT GIVEN BY WEB MARKETING INTERN BY BED SIDE, PT AOX2 NONVERBAL, MAINTAINED ON VENT, P#7,AC 16, TV 500, FIO2 40%,P+5, WELL RAE, ABLE TO MAKE NEEDS KNOWN, NONVERBAL, WITH TARUN AV FISTULA, VEE, WITH NS @50ML, IV SITE INTACT NO INFILTRATION AT SITE, WOUND TX CONT ORDERED, KEPT CLEAN AND DRY, WELL REPOSITIONED QS, AWARE OF TRANSFER. WILL CONT TO MONITOR.
[2018-02-02] MEDS: diphenhydrAMINE HCL 25 MG CAPSULE PO PRN (22:24)
[2018-02-02] MEDS: HYDROCODONE/APAP 5/325MG 1 EACH TABLET GT PRN (22:25)
[2018-02-03] VITALS: BP 126/90
[2018-02-03] MEDS: IPRATROPIUM NEB FS 0.5 MG/2.5 ML AMPUL.NEB NEB SCH ×4 (01:16→20:14)
[2018-02-03] MEDS: ALBUTEROL FS 2.5 MG/0.5 ML VIAL.NEB NEB SCH ×4 (01:16→20:14)
--- NOTE | 2018-02-03 01:51 | NUR ---
PT TADEO'D ON MECHANICAL VENT. TXS GIVEN AND NO ADVERSE REACTION NOTED. SX DONE T/O SHIFT. PT TADEO PATENT AND SECURE. AMBU BAG AT BEDSIDE. VENT PLUGGED INTO RED OUTLET. ALARMS ARE ON AND AUDIBLE. WILL CONTINUE TO MONITOR. Addendum: 02/03/18 at 0152 by NINA CARPENTER RT Amended: Links added.
[2018-02-03 04:00] VITALS: BP 143/80
[2018-02-03 06:17] LABS: BASOPHILS % (AUTO) 0.4 % (0.0-2.0); EOSINOPHILS % (AUTO) 0.7 % (0.0-6.0); HEMATOCRIT 30 % (39-51); HEMOGLOBIN 9.5 g/dL (13.5-17.5); LYMPHOCYTES # (AUTO) 0.8 /CMM (0.8-4.8); MEAN CORPUSCULAR HEMOGLOBIN 28 PG (26.0-33.0); MEAN CORPUSCULAR HGB CONC 32 g/dl (31.0-36.0); MEAN CORPUSCULAR VOLUME 88 fL (80-96); MONOCYTES # (AUTO) 0.3 /CMM (0.1-1.30); MONOCYTES % (AUTO) 3.4 % (2.0-12.0); NEUTROPHILS % (AUTO) 86.5 % (43.0-81.0); PLATELET COUNT (AUTO) 159 /CMM (150-450); RDW COEFFICIENT OF VARIATION 17.5 (11.5-15.0); RED BLOOD CELL COUNT(AUTO) 3.36 MIL/uL (4.5-6.0); WHITE BLOOD COUNT (AUTO) 9.3 K/uL (4.3-11.0)
[2018-02-03 06:26] LABS: CALCIUM, SERUM 8.5 mg/dL (8.5-10.1); CREATININE 3.2 mg/dL (0.6-1.3); PHOSPHORUS 4.1 mg/dL (2.5-4.9)
[2018-02-03 06:33] LABS: POTASSIUM 2.7 mmol/L (3.5-5.1)
--- NOTE | 2018-02-03 07:20 | NUR ---
TELE/ RN NOTES RECEIVED PT IN BED, IN SEMI FOWLERS POSITION, ON MECH VENT, TOLERATING CURRENT SETTINGS WELL, NO SOB NOTED. WITH V PACING ON @ 77 ON TELE MONITOR. PT'S PEG INTACT AND CLAMPED. PT'S ON NPO EXCEPT MEDS TFO. ABDOMEN IS DISTENDED. WITH INTACT TARUN AV FISTULA. WITH ONGOING IVF NS AT 50 ML/HR. NO INFECTION NOTED. SAFETY MEASURES AND ASPIRATION PRECAUTION OBSERVED. CALL LIGHT WITHIN REACH. WILL CONT TO MONITOR
--- NOTE | 2018-02-03 07:48 | NUR ---
RN TEL CLOSING NOTE ENDORSED PT IN BED, AOX2 NONVERBAL, MAINTAINED ON VENT, P#7,AC 16, TV 500, FIO2 40%,P+5, WELL RAE, ABLE TO MAKE NEEDS KNOWN, NONVERBAL, WITH TARUN AV FISTULA, VEE, WITH NS @50ML, IV SITE INTACT NO INFILTRATION AT SITE, NPO GTF ON HOLD TFO, WOUND TX CONT ORDERED, KEPT CLEAN AND DRY, WELL REPOSITIONED QS, WILL ENDORSE TO AM SHIFT RN TO F/U ON PLAN OF CARE.
[2018-02-03 08:00] VITALS: BP_SYST 113; BP_SYST 140; BP_DIAS 44; BP_DIAS 62
[2018-02-03] MEDS: PANTOPRAZOLE 40 MG/PACK PACK GT SCH (08:29)
--- NOTE | 2018-02-03 08:30 | NUR ---
RN NOTES NOTED CRITICAL LABS K- 2.7, PT ON HD, CALLED FAMILY REUNIFICATION SPECIALIST LINE AND SPOKE WITH JIGNA, LEFT MESSAGE RE: PT'S CURRENT POTASSIUM LEVEL, 2.7. HE SAID, "WILL NOTIFY MD FAMILY REUNIFICATION SPECIALIST" AWAITING TO CALL BACK. PT IN NO SIGNS OF DISTRESS. CHARGE NURSE JANIS MADE AWARE
[2018-02-03] MEDS: VIT B CMPLX 3/FA/VIT C/BIOTIN 1 TAB TABLET GT SCH (08:32)
[2018-02-03] MEDS: SEVELAMER CARBONATE 0.8 GM POWD.PACK GT SCH ×3 (08:32→17:51)
[2018-02-03] MEDS: LACTOBACILLUS RHAMNOSUS GG 1 EACH CAP.SPRINK PO SCH ×2 (08:34→16:59)
[2018-02-03] MEDS: HYDROCODONE/APAP 5/325MG 1 EACH TABLET GT SCH (08:34)
[2018-02-03] MEDS: FLUCONAZOLE (100 MG) 100 MG TABLET PO SCH (08:34)
[2018-02-03] MEDS: PROSOURCE / PROSTAT (PYXIS) 30 ML UDC GT SCH (08:42)
[2018-02-03] MEDS: MIDODRINE HCL (5MG) 5 MG TABLET PO SCH ×3 (08:42→16:59)
[2018-02-03] MEDS: Z GUARD REMEDY 2 OZ OINT TP SCH (08:54)
[2018-02-03] MEDS: NYSTATIN TOP POWDER 15 GM BOTTLE TP SCH ×2 (08:54→17:52)
[2018-02-03] MEDS: MEROPENEM 500 MG in IV NS 0.9% 50 ML IV SCH (09:00)
[2018-02-03] MEDS: CLOTRIMAZOLE 1% 15 GM TUBE TP SCH ×2 (09:00→17:52)
--- NOTE | 2018-02-03 09:00 | NUR ---
RN NOTES CHARGE NURSE SPOKE WITH DILAN DIALYSIS NURSE. PER DIALYSIS NURSE, WILL FOLLOW UP WITH
--- NOTE | 2018-02-03 11:16 | NUR ---
RELAYED TO DR. SIMON K2.7 , AWARE WILL ADRESS DURING ROUNDS,PT. IS HD.
[2018-02-03] MEDS: POTASSIUM CL. PREMIX PERIPHER. 50 ML IV SCH ×4 (11:53→15:20)
[2018-02-03 12:00] VITALS: BP_SYST 102; BP_SYST 108; BP_DIAS 46; BP_DIAS 86
--- NOTE | 2018-02-03 12:50 | NUR ---
RN NOTES SEEN AND EXAMINED BY DR. SIMON
--- NOTE | 2018-02-03 13:05 | NUR ---
RN NOTES SEEN AND EXAMINED BY DR GAFFNEY
--- NOTE | 2018-02-03 14:00 | NUR ---
RN NOTES HD NURSE ON FLOOR WITH DR SIMON. PER DR SIMON, HD CATH PLACEMENT AND HD IS RESCHEDULE TOMORROW Addendum: 02/03/18 at 1619 by ADITI GONZALEZ RN WRONG ENTRY
--- NOTE | 2018-02-03 15:00 | NUR ---
RN NOTES RECEIVED CALL FROM DR LARSON, PER MD TRAN CATH PLACEMENT IS RESCHED TOMORROW, Addendum: 02/03/18 at 1620 by ADITI GONZALEZ RN WRONG ENTRY
[2018-02-03] MEDS: IV NS 0.9% 1,000 ML IV PRN (15:36)
[2018-02-03 16:00] VITALS: BP 103/83
--- NOTE | 2018-02-03 16:00 | NUR ---
RN NOTES SEEN AND EXAMINED BY DR MARTINEZ, INFORMED THAT PT WAS SEEN BY DR PAYAN AND ORDERED TO RESUME GT FEEDING ON SLOW RATE. PER MD, HOLD GT FEEDING TFO, GT ON SUCTION BY GRAVITY. AND CT ABDOMEN, PELVIS WITH CONTRAST CONSENT SECURED BY ISABEL
--- NOTE | 2018-02-03 17:39 | NUR ---
RECEIVED PT TRACH ON MECHANICAL VENTILATOR. SX'D MODERATE AMT OF THICK PARRISH SECRETIONS. VENT ALARMS SET AND AUDIBLE. AMBU BAG AT BEDSIDE. VENT PLUGGED INTO RED OUTLET. WILL CONTINUE TO MONITOR.
[2018-02-03] MEDS: NEPRO 1,000 ML BOTTLE GT PRN (17:51)
--- NOTE | 2018-02-03 18:00 | NUR ---
RN NOTES SEEN AND EXAMINED BY DR MARTINEZ WITH ORDERS TO HOLD GT FEEDING TFO, GT ON SUCTION BY GRAVITY AND CT ABDOMEN WITH CONTRAST TELEPHONE CONSENT SECURED BY ISABEL JENSEN
--- NOTE | 2018-02-03 19:15 | NUR ---
RN NOTES PT IN STABLE CONDITION. LABS MONITORED. SAFETY MEASURES AND ASPIRATION PRECAUTION OBSERVED AT ALL TIMES. ALL NEEDS ATTENDED. ENDORSED TO PM SHIFT NURSE FOR KASSANDRA
--- NOTE | 2018-02-03 19:30 | NUR ---
CUSTOMER SERVICE SECURITY OFFICER INITIAL NOTE RECEIVED PATIENT VENT DEPENDENT, AWAKE, ALERT, ABLE TO MOUTH NEEDS. NO S/S OF PAIN OR DISCOMFORT. WITH VENT SETTINGS AC 16, VT 500, PEEP 5, SPO2 100%. ON TELE MONITOR VPACING. SKIN WARM AND DRY TO TOUCH. RADIOLOGY AT BEDSIDE, PATIENT TO GO FOR CT SCAN WITH CONTRAST. GT PATENT, INTACT, IN PLACE. NOTED WITH ABDOMINAL DISTENTION, SOFT, TENDER TO TOUCH. HOB ELEVATED. SIDE RAILS UP AND LOCKED. BED KEPT AT LOWEST POSITION. CALL LIGHT KEPT WITHIN EASY REACH. WILL CONTINUE TO MONITOR.
[2018-02-03 20:00] VITALS: BP 108/46
--- NOTE | 2018-02-03 20:14 | NUR ---
RECEIVED PT TRACH PORTEX 7 ON MECH VENT WITH NOTED SETTINGS. VENT ALARM SET AND AUDIBLE. VENT PLUGGED INTO RED OUTLET, AMBU BAG AT BEDSIDE. BREATHING TX GIVEN PER MD'S ORDERED. NO ADVERSE REACTION NOTED. SX'D MODERATE AMT OF THICK YELLOW SECRETIONS. NO RESPIRATORY DISTRESS NOTED, WILL CONTINUE TO MONITOR.
[2018-02-03] MEDS ORDERED: DIATR MEGLU/DIATRIZOATE SODIUM 30 ML BOTTLE (GASTROGRAPHIN) ONE (20:16)
--- NOTE | 2018-02-03 20:30 | NUR ---
ADOBE FLEX DEVELOPER NOTE RADIOLOGY CLARIFIED WITH MD CT WITH CONTRAST ORDER. PER RADIOLOGY MD ONLY WANTS WATER SOLUBLE CONTRAST.
--- NOTE | 2018-02-03 22:18 | NUR ---
PROMOTIONS TEAM LEADER NOTE PATIENT LEFT FOR CT SCAN
--- NOTE | 2018-02-03 22:18 | NUR ---
PT TRANSPORTED TO CT SCAN AT THIS TIME. NO RESPIRATORY DISTRESS NOTED.
--- NOTE | 2018-02-03 22:40 | NUR ---
ROPE RIDER NOTE PATIENT BACK FROM CT SCAN
[2018-02-04] VITALS (7 sets, daily range): BP systolic 64–142; BP diastolic 17–99
[2018-02-04] MEDS: ALBUTEROL FS 2.5 MG/0.5 ML VIAL.NEB NEB SCH ×4 (01:31→19:29)
[2018-02-04] MEDS: IPRATROPIUM NEB FS 0.5 MG/2.5 ML AMPUL.NEB NEB SCH ×4 (01:32→19:29)
[2018-02-04] MEDS: ACETAMINOPHEN 325 MG TABLET PO PRN (03:44)
[2018-02-04 06:45] LABS: BASOPHILS # (AUTO) 0.1 /CMM (0.0-0.2); EOSINOPHILS % (AUTO) 2.1 % (0.0-6.0); HEMATOCRIT 29 % (39-51); LYMPHOCYTES # (AUTO) 0.8 /CMM (0.8-4.8); LYMPHOCYTES % (AUTO) 6.5 % (20.0-44.0); MEAN CORPUSCULAR HEMOGLOBIN 28 PG (26.0-33.0); MEAN CORPUSCULAR HGB CONC 32 g/dl (31.0-36.0); MEAN CORPUSCULAR VOLUME 88 fL (80-96); MONOCYTES # (AUTO) 0.5 /CMM (0.1-1.30); MONOCYTES % (AUTO) 3.9 % (2.0-12.0); NEUTROPHILS # (AUTO) 10.5 /CMM (1.8-8.9); NEUTROPHILS % (AUTO) 86.5 % (43.0-81.0); PLATELET COUNT (AUTO) 168 /CMM (150-450); RDW COEFFICIENT OF VARIATION 18.5 (11.5-15.0); RED BLOOD CELL COUNT(AUTO) 3.24 MIL/uL (4.5-6.0); WHITE BLOOD COUNT (AUTO) 12.2 K/uL (4.3-11.0)
--- NOTE | 2018-02-04 06:50 | NUR ---
CAR HOSTLER CLOSING NOTE NO SIGNIFICANT CHANGE OVERNIGHT. ALL DUE MEDS GIVEN. TOLERATED VENT SETTINGS. GT PATENT, INTACT, IN PLACE ON LOW INTERMITTENT SUCTION, WITH MINIMAL OUTPUT NOTED. NO DISTRESS NOTED. HOB ELEVATED. KEPT CLEAN AND DRY, WOUND TX DONE. TURNED AND REPOSITIONED Q2 AND PRN. SIDE RAILS UP AND LOCKED. BED KEPT AT LOWEST POSITION. CALL LIGHT KEPT WITHIN EASY REACH. WILL ENDORSE CONTINUITY OF CARE TO AM NURSE. Addendum: 02/04/18 at 0702 by ALICE SOLORZANO RN CORRECTION: PATIENT GT NOT ON LIS, GT DRAINING BY GRAVITY.
[2018-02-04 06:55] LABS: CREATININE 3.8 mg/dL (0.6-1.3); MAGNESIUM 1.8 mg/dL (1.8-2.4); PHOSPHORUS 4.4 mg/dL (2.5-4.9); POTASSIUM 3.3 mmol/L (3.5-5.1)
--- NOTE | 2018-02-04 07:30 | NUR ---
ENTRY LEVEL MARKETING REPRESENTATIVE INITIAL NOTES RECEIVED PATIENT IN BED, ON VENTILATOR SETTINGS ORDERED, ALERT ABLE TO MAKE NEEDS KNOWN, NO SHORTNESS OF BREATHING, ON TELE MONITORING VPACING 75 HR, ANURIC, HD CATHETER TARUN AV SHUNT, POSITIVE FOR THRILL AND BRUIT. VEE MIDLINE CLEAN AND PATENT. NS @ 50 ML/HR, GTUBE TO GRAVITY. BED IN LOW AND LOCKED POSITION, CALL LIGHT WITHIN REACH, WILL CONTINUE TO MONITOR.
--- NOTE | 2018-02-04 07:50 | NUR ---
RT PATIENT REC'D TRACHED ON [facility] VENT RAE WELL. VENT ALARMS CHECKED + AUDIBLE. CUFF PRESSURE CHECKED BACK UP WORKER. PATIENT SUCTIONED WITH SMALL TO MOD AMT PALE SEMITHICK SECRETIONS. PATIENT STABLE, NON VERBAL, NO SOB NOTED. AMBU BAG AT HOB Addendum: 02/04/18 at 1052 by CARINE BAUER RT Amended: Links added.
[2018-02-04] MEDS: MIDODRINE HCL (5MG) 5 MG TABLET PO SCH ×3 (08:31→17:18)
[2018-02-04] MEDS: MEROPENEM 500 MG in IV NS 0.9% 50 ML IV SCH (08:31)
[2018-02-04] MEDS: VIT B CMPLX 3/FA/VIT C/BIOTIN 1 TAB TABLET GT SCH (08:32)
[2018-02-04] MEDS: HYDROCODONE/APAP 5/325MG 1 EACH TABLET GT SCH (08:32)
[2018-02-04] MEDS: PROSOURCE / PROSTAT (PYXIS) 30 ML UDC GT SCH (08:32)
[2018-02-04] MEDS: SEVELAMER CARBONATE 0.8 GM POWD.PACK GT SCH ×3 (08:32→17:18)
[2018-02-04] MEDS: FLUCONAZOLE (100 MG) 100 MG TABLET PO SCH (08:32)
[2018-02-04] MEDS: Z GUARD REMEDY 2 OZ OINT TP SCH (08:32)
[2018-02-04] MEDS: LACTOBACILLUS RHAMNOSUS GG 1 EACH CAP.SPRINK PO SCH ×2 (08:32→17:18)
[2018-02-04] MEDS: CLOTRIMAZOLE 1% 15 GM TUBE TP SCH ×2 (08:33→17:19)
[2018-02-04] MEDS: PANTOPRAZOLE 40 MG/PACK PACK GT SCH (08:33)
[2018-02-04] MEDS: NYSTATIN TOP POWDER 15 GM BOTTLE TP SCH ×2 (08:33→17:20)
[2018-02-04] MEDS: IV NS 0.9% 1,000 ML IV PRN (12:01)
--- NOTE | 2018-02-04 13:44 | NUR ---
SUPERVISOR FURNACE ROOM NOTES PATIENT STARTING HD AT THIS TIME.
--- NOTE | 2018-02-04 18:50 | NUR ---
ROLL FORMER END NOTES PATIENT RESTING IN BED, NO SIGNS OF DISTRESS, ALL NEEDS MET, HD CATHETER CLOGGED PER HD NURSE, DR SIMON NOTIFIED, WILL ENDORSE TO RN COMPLEX CARE FOR CONTINUITY OF CARE.
--- NOTE | 2018-02-04 20:00 | NUR ---
RN INITIAL NOTES RECEIVED PATIENT IN BED, ON VENTILATOR SETTINGS ORDERED, ALERT ABLE TO MAKE NEEDS KNOWN, NO SHORTNESS OF BREATHING, ON TELE MONITORING VPACING 75 HR, ANURIC, HD CATHETER TARUN AV SHUNT, POSITIVE FOR THRILL AND BRUIT. VEE MIDLINE CLEAN AND PATENT. NS @ 50 ML/HR, GTUBE TO GRAVITY. BED IN LOW AND LOCKED POSITION, CALL LIGHT WITHIN REACH, WILL CONTINUE TO MONITOR.
[2018-02-05] VITALS (8 sets, daily range): BP systolic 79–139; BP diastolic 50–113
[2018-02-05] MEDS: ALBUTEROL FS 2.5 MG/0.5 ML VIAL.NEB NEB SCH ×4 (01:07→19:37)
[2018-02-05] MEDS: IPRATROPIUM NEB FS 0.5 MG/2.5 ML AMPUL.NEB NEB SCH ×4 (01:07→19:37)
--- NOTE | 2018-02-05 02:27 | NUR ---
PT TADEO'D ON MECHANICAL VENT. TXS GIVEN AND NO ADVERSE REACTION NOTED. SX DONE T/O SHIFT. PT TADEO PATENT AND SECURE. AMBU BAG AT BEDSIDE. VENT PLUGGED INTO RED OUTLET. ALARMS ARE ON AND AUDIBLE. WILL CONTINUE TO MONITOR. Addendum: 02/05/18 at 0228 by NINA CARPENTER RT Amended: Links added.
[2018-02-05] MEDS: diphenhydrAMINE HCL 25 MG CAPSULE PO PRN (03:03)
[2018-02-05] MEDS: HYDROCODONE/APAP 5/325MG 1 EACH TABLET GT SCH (03:04)
[2018-02-05 06:21] LABS: BASOPHILS % (AUTO) 0.3 % (0.0-2.0); EOSINOPHILS % (AUTO) 2.6 % (0.0-6.0); HEMATOCRIT 28 % (39-51); HEMOGLOBIN 9.4 g/dL (13.5-17.5); LYMPHOCYTES # (AUTO) 0.8 /CMM (0.8-4.8); LYMPHOCYTES % (AUTO) 6.9 % (20.0-44.0); MEAN CORPUSCULAR HEMOGLOBIN 29 PG (26.0-33.0); MEAN CORPUSCULAR HGB CONC 33 g/dl (31.0-36.0); MEAN CORPUSCULAR VOLUME 86 fL (80-96); MONOCYTES # (AUTO) 0.5 /CMM (0.1-1.30); MONOCYTES % (AUTO) 3.9 % (2.0-12.0); NEUTROPHILS # (AUTO) 10.4 /CMM (1.8-8.9); NEUTROPHILS % (AUTO) 86.3 % (43.0-81.0); PLATELET COUNT (AUTO) 174 /CMM (150-450); RDW COEFFICIENT OF VARIATION 17.7 (11.5-15.0); RED BLOOD CELL COUNT(AUTO) 3.29 MIL/uL (4.5-6.0)
[2018-02-05 06:28] LABS: CALCIUM, SERUM 8.4 mg/dL (8.5-10.1); CREATININE 4.5 mg/dL (0.6-1.3); MAGNESIUM 1.9 mg/dL (1.8-2.4); PHOSPHORUS 5.3 mg/dL (2.5-4.9); POTASSIUM 3.4 mmol/L (3.5-5.1)
--- NOTE | 2018-02-05 06:30 | NUR ---
RN CLOSING NOTE NO SIGNIFICANT CHANGE OVERNIGHT. ALL DUE MEDS GIVEN. TOLERATED VENT SETTINGS. GT PATENT, INTACT, IN PLACE ON LOW INTERMITTENT SUCTION, WITH MINIMAL OUTPUT NOTED. NO DISTRESS NOTED. HOB ELEVATED. KEPT CLEAN AND DRY, WOUND TX DONE. TURNED AND REPOSITIONED Q2 AND PRN. SIDE RAILS UP AND LOCKED. BED KEPT AT LOWEST POSITION. CALL LIGHT KEPT WITHIN EASY REACH. WILL ENDORSE CONTINUITY OF CARE TO AM NURSE.
[2018-02-05] MEDS ORDERED: DEXTROSE 50%-WATER 50 ML DISP.SYRIN ONE (06:52)
[2018-02-05] MEDS ORDERED: DEXTROSE 50%-WATER 50 ML DISP.SYRIN IVP ONE (07:00)
[2018-02-05] MEDS ORDERED: IV D5/0.45 NACL 1,000 ML IV ONE (07:00)
--- NOTE | 2018-02-05 07:53 | NUR ---
INSTITUTIONAL AIDE NOTES: RECEIVED PT ON BED AWAKE. NO ACUTE DISTRESS NOTED. NO FACIAL GRIMACING OR ANY SIGNS OF PAIN NOTED. NO SOB. ON MECH VENT, SATURATING WELL, SETTINGS ORDERED. VEE MIDLINE INTACT AND PATENT WITH D5 1/2NS RUNNING AT 50ML/HR. ON TELE MONITOR, V. PACING. GT FEEDING STILL ON HOLD. KEPT CLEAN, DRY AND COMFORTABLE. SAFETY AND FALL PRECAUTIONS OBSERVED AND MAINTAINED. WILL CONTINUE TO MONITOR PT.
--- NOTE | 2018-02-05 07:55 | NUR ---
RT PATIENT REC'D TRACHED ON [facility] VENT WITH ORDERED SETTINGS TOLERATED WELL. VENT ALARMS CHECKED + AUDIBLE. VENT PLUGGED INTO RED OUTLET. CUFF PRESSURE CHECKED SOLUTIONS CONSULTANT. TRACH SECURE AND IN PROPER POSITION VIA FOAM TRACH TIE. PATIENT APPEARS COMFORTABLE AND IN NO DISTRESS AT THIS TIME. PATIENT SUCTIONED WITH SMALL TO MODERATE AMOUNT OF PALE SEMI-THICK SECRETIONS. B/S DIM COARSE. AMBU BAG AT [facility]. CONTINUE CURRENT PLAN OF RESPIRATORY CARE. Addendum: 02/05/18 at 0847 by CARINE BAUER RT Amended: Links added.
--- NOTE | 2018-02-05 08:10 | NUR ---
WIRE STRIPPING MACHINE OPERATOR NOTES: BLOOD SUGAR RECHECKED, 82 MG/DL AND BLOOD PRESSURE WAS 79/64. MIDODRINE WILL BE GIVEN ORDERED AND WILL RECHECK BLOOD PRESSURE AGAIN AFTER 30MINS.
[2018-02-05] MEDS: SEVELAMER CARBONATE 0.8 GM POWD.PACK GT SCH ×3 (08:28→17:05)
[2018-02-05] MEDS: PANTOPRAZOLE 40 MG/PACK PACK GT SCH (08:29)
[2018-02-05] MEDS: VIT B CMPLX 3/FA/VIT C/BIOTIN 1 TAB TABLET GT SCH (08:29)
[2018-02-05] MEDS: PROSOURCE / PROSTAT (PYXIS) 30 ML UDC GT SCH (08:29)
[2018-02-05] MEDS: MEROPENEM 500 MG in IV NS 0.9% 50 ML IV SCH (08:29)
[2018-02-05] MEDS: MIDODRINE HCL (5MG) 5 MG TABLET PO SCH ×3 (08:30→16:45)
[2018-02-05] MEDS: LACTOBACILLUS RHAMNOSUS GG 1 EACH CAP.SPRINK PO SCH ×2 (08:30→16:45)
[2018-02-05] MEDS: FLUCONAZOLE (100 MG) 100 MG TABLET PO SCH (08:34)
--- NOTE | 2018-02-05 09:00 | NUR ---
HOSPITAL FOOD SERVICE WORKER NOTES: MIDODRINE GIVEN ORDERED, RECHECKED BP 123/93. NO SIGNS/SYMPTOMS OF DISTRESS NOTED. WILL CONTINUE TO MONITOR PT.
[2018-02-05] MEDS: NYSTATIN TOP POWDER 15 GM BOTTLE TP SCH ×2 (09:22→16:45)
[2018-02-05] MEDS: Z GUARD REMEDY 2 OZ OINT TP SCH (09:23)
[2018-02-05] MEDS: CLOTRIMAZOLE 1% 15 GM TUBE TP SCH ×2 (09:24→16:44)
--- NOTE | 2018-02-05 09:46 | NUR ---
PER DR MAXWELL REYNOSO DC'D ON VENT SETTINGS Addendum: 02/05/18 at 0947 by CARINE BAUER RT Amended: Links added.
[2018-02-05] MEDS: NEPRO 1,000 ML BOTTLE GT PRN (14:59)
--- NOTE | 2018-02-05 15:10 | NUR ---
MANAGER RESPIRATORY NOTES: GT FEEDING RESUMED, RUNNING AT 25ML/HR. NO RESIDUAL NOTED AT THIS TIME. NO SOB. NO SIGNS/SYMPTOMS OF ASPIRATION NOTED. WILL CONTINUE TO MONITOR PT.
--- NOTE | 2018-02-05 16:47 | NUR ---
LEARNING AND DEVELOPMENT ASSISTANT NOTES: MIDODRINE NOT GIVEN, BP 135/93.
--- NOTE | 2018-02-05 18:34 | NUR ---
PASTRY ASSISTANT NOTES: NO APPARENT DISTRESS NOTED THROUGHOUT THE SHIFT. NO SOB. NO FACIAL GRIMAING OR ANY SIGNS OF PAIN NOTED. RESUMED GT FEEDING ORDERED RUNNING 25ML/HR, NO RESIDUAL NOTED AT THIS TIME. NO SIGNS/SYMPTOMS OF ASPIRATION. KEPT HOB ELEVATED. RIGHT UPPER ARM MIDLINE INTACT AND PATENT WITH D5 1/5 NS @ 50ML/HR, INFUSING WELL. KEPT CLEAN, DRY AND COMFORTABLE. TURNED AND REPOSITIONED Q2HRS NEEDED. SAFETY AND FALL PRECAUTIONS OBSERVED AND MAINTAINED. CALL LIGHT PLACED WITHIN REACH. WILL ENDORSE TO LINE MANAGER FOR KASSANDRA.
--- NOTE | 2018-02-05 19:30 | NUR ---
TELE/ RN NOTES: RECEIVED PT. IN BED W/ HOB ELEVATED. A/O X 1. ON MECHANICAL VENT TOLERATING VENT SETTINGS WELL. ON TELE MONITOR W/ V PACING 76. ANURIC. HAS NEPRO TUBE FEEDING W/ NO RESIDUAL NOTED . HAS VEE MIDLINE W/ D51/2 NS @ 50 CC/HR PATENT AND INTACT W/ NO S/S OF INFECTION/INFILTRATION. HAS TARUN HD CATH. NO FACIAL GRIMACES OR MOANING NOTED. CALL LIGHT W/ REACH. WILL CONTINUE TO MONITOR.
--- NOTE | 2018-02-05 21:09 | NUR ---
CONTINUUM OF CARE MANAGER NOTES: GTF RESIDUAL CHECKED 0 ML. INCREASED GTF TO 35 ML/HR PER ORDER. WILL CHECK IT AGAIN LATER.
[2018-02-06] VITALS: BP 129/95
[2018-02-06] MEDS: IPRATROPIUM NEB FS 0.5 MG/2.5 ML AMPUL.NEB NEB SCH ×4 (01:11→19:07)
[2018-02-06] MEDS: ALBUTEROL FS 2.5 MG/0.5 ML VIAL.NEB NEB SCH ×4 (01:11→19:07)
--- NOTE | 2018-02-06 02:00 | NUR ---
TELE/RN NOTES: PT. HAD EMESIS X 3. GTF RESIDUAL IN 160-170 ML. GTF TURNED OFF. CALLED DR. ROBLES FOR IVF ORDER.
[2018-02-06 04:00] VITALS: BP 150/94
[2018-02-06] MEDS ORDERED: IV D5/0.45 NACL 1,000 ML IV PRN (04:00)
[2018-02-06 07:07] LABS: CREATININE 5.1 mg/dL (0.6-1.3); POTASSIUM 3.8 mmol/L (3.5-5.1)
--- NOTE | 2018-02-06 07:29 | NUR ---
RN/TELE NOTES: REPORT GIVEN TO AM NURSE FOR KASSANDRA.
[2018-02-06 08:00] VITALS: BP 135/65
--- NOTE | 2018-02-06 08:00 | NUR ---
TELE1/RN AM SHIFT INITIAL NOTES RECEIVED PT ASLEEP IN BED, PT A/O X 1, OPEN EYES. NO FEVER, GRIMACING OR ACUTE CHANGE OF CONDITION NOTED. ON VENTILATOR WITH RATES SET PRESCRIBED, SATURATING @ 97%, LUNG SOUNDS DIMINISHED, SUCTIONED FOR AIRWAY CLEARANCE. ON TELE MONITORING V-PACING, HR 79. MIDLINE WITH ON GOING INFUSION OF D5,1/2NS @ 50CC/HR, NO S/S OF INFECTION. GTF ON GOING @ 25CC/HR, NOTED GASTRIC RESIDUAL 10ML, FLUSHED, PATENT. PT IS COMFORTABLE AT THIS TIME. SCHEDULED AM MEDS TO BE GIVEN. CL WITHIN REACHED AND SAFETY MAINTAINED. ON GOING MONITORING. Addendum: 02/06/18 at 1119 by MARGARET MONTIEL RN ADDENDUM: AV SHUNT NOTED WITH NO THRILL OR BRUIT, VERIFIED WITH HD NURSE YASMIN.
[2018-02-06] MEDS: PROSOURCE / PROSTAT (PYXIS) 30 ML UDC GT SCH (08:40)
[2018-02-06] MEDS: SEVELAMER CARBONATE 0.8 GM POWD.PACK GT SCH ×3 (08:40→17:22)
[2018-02-06] MEDS: PANTOPRAZOLE 40 MG/PACK PACK GT SCH (08:40)
[2018-02-06] MEDS: LACTOBACILLUS RHAMNOSUS GG 1 EACH CAP.SPRINK PO SCH ×2 (08:40→17:22)
[2018-02-06] MEDS: HYDROCODONE/APAP 5/325MG 1 EACH TABLET GT SCH (08:41)
[2018-02-06] MEDS: FLUCONAZOLE (100 MG) 100 MG TABLET PO SCH (08:41)
[2018-02-06] MEDS: VIT B CMPLX 3/FA/VIT C/BIOTIN 1 TAB TABLET GT SCH (08:41)
[2018-02-06] MEDS: Z GUARD REMEDY 2 OZ OINT TP SCH (08:42)
[2018-02-06] MEDS: MIDODRINE HCL (5MG) 5 MG TABLET PO SCH ×3 (08:42→17:22)
[2018-02-06] MEDS: NYSTATIN TOP POWDER 15 GM BOTTLE TP SCH ×2 (08:43→17:23)
[2018-02-06] MEDS: CLOTRIMAZOLE 1% 15 GM TUBE TP SCH ×2 (08:43→17:23)
[2018-02-06] MEDS: MEROPENEM 500 MG in IV NS 0.9% 50 ML IV SCH (08:44)
--- NOTE | 2018-02-06 09:35 | NUR ---
RT RECEIVED PT TRACH ON VENT WITH NOTED SETTINGS, MIDDLEWARE ADMINISTRATOR DONE AND TRACH IS SECURE. VENT PLUGGED IN RED OUTLET AND AMBU BAG NOTED HOB. SX WITH MOD THK YELLOW SECRETIONS. NO SOB OR DISTRESS NOTED AT THIS TIME, WILL CONTINUE TO MONITOR T/O SHIFT.
[2018-02-06 12:00] VITALS: BP 106/87
[2018-02-06 16:00] VITALS: BP 123/81
--- NOTE | 2018-02-06 17:41 | NUR ---
TELE1/RN AV SHUNT - CLOTTED VERIFIED WITH HD NURSE, PT AV SHUNT IS CLOTTED, NEEDLE STICK PRODUCED VERY DARK RED BLOOD RETURN, NON-PULSATING. CHARGE NURSE MADE AWARE. DR. MARTINEZ NOTIFIED OF ASSESSMENT EARLIER IN THE DAY. MONITORING CONTINUED.
--- NOTE | 2018-02-06 19:22 | NUR ---
TELE1/RN AM SHIFT END NOTES ALL NEEDS MET, NO ACUTE CHANGE OF CONDITION NOTED DURING THE SHIFT. AV SHUNT CLOTTED MD AWARE. PT ENDORSED TO PM NURSE TO CONTINUE CARE. CL WITHIN REACHED AND SAFETY MAINTAINED.
--- NOTE | 2018-02-06 19:30 | NUR ---
TELE/RN NOTES: RECEIVED PT. IN BED W/ HOB ELEVATED W/MECH. VENT TOLERATING SETTINGS WELL. NO FACIAL GRIMACES OR MOANING NOTED. NO S/S OF ANY RESPIRATORY DISTRESS NOTED. ON TELE MONITOR W/ V-PACING, HR 76. VEE MIDLINE C/D/I W/ NO S/S OF INFECTION/INFILTRATION NOTED. GTF @ 35 CC/HR TOLERATING WELL W/ NO RESIDUAL NOTED. CALL LIGHT W/REACH. ALL NEEDS MEET. WILL CONTINUE TO MONITOR.
[2018-02-06 20:00] VITALS: BP 124/108
[2018-02-07] VITALS (7 sets, daily range): BP systolic 94–185; BP diastolic 69–136
[2018-02-07] MEDS: IPRATROPIUM NEB FS 0.5 MG/2.5 ML AMPUL.NEB NEB SCH ×4 (01:27→20:25)
[2018-02-07] MEDS: ALBUTEROL FS 2.5 MG/0.5 ML VIAL.NEB NEB SCH ×4 (01:27→20:25)
[2018-02-07 06:30] LABS: CALCIUM, SERUM 8.7 mg/dL (8.5-10.1); CREATININE 5.5 mg/dL (0.6-1.3); POTASSIUM 3.4 mmol/L (3.5-5.1)
--- NOTE | 2018-02-07 07:16 | NUR ---
TELE/RN NOTES: NO ACUTE CHANGES NOTED DURING THIS SHIFT. REPORT GIVEN TO AM NURSE FOR KASSANDRA.
--- NOTE | 2018-02-07 07:49 | NUR ---
RT PT RECEIVED WITH A PORTEX 7 TRACH ON THE VENT WITH NOTED SETTINGS. PT IS AWAKE AND RESPONDS TO COMMANDS. VENT ALARMS ARE SET AND AUDIBLE WITH BVM BY BEDSIDE. TELEGRAPH INSTALLER CUFF PRESSURE NOTED. PT SX'D LARGE THICK YELLOW SECRETIONS. NO RESPIRATORY DISTRESS NOTED AT THIS TIME, WILL CONTINUE TO MONITOR. Addendum: 02/07/18 at 1051 by STEPHON MCALLISTER RT Amended: Links added.
--- NOTE | 2018-02-07 07:59 | NUR ---
TELE1/RN AM SHIFT INITIAL NOTES RECEIVED PT ASLEEP IN BED, PT A/O X 1, OPEN EYES. NO FEVER, GRIMACING OR ACUTE CHANGE OF CONDITION NOTED. ON VENTILATOR WITH RATES SET PRESCRIBED, SATURATING @ 100%, LUNG SOUNDS DIMINISHED, SUCTIONED FOR AIRWAY CLEARANCE. ON TELE MONITORING V-PACING, HR 75. MIDLINE FLUSHED, PATENT WITH NO S/S OF INFECTION, SL. AV SHUNT ON LEFT UPPER ARM NEGATIVE OF THRILL AND BRUIT. GTF ON GOING @ 35CC/HR, NO GASTRIC RESIDUAL NOTED. PT IS COMFORTABLE, AM MEDS TO BE GIVEN. CL WITHIN REACHED AND SAFETY MAINTAINED. ON GOING MONITORING.
[2018-02-07] MEDS: PROSOURCE / PROSTAT (PYXIS) 30 ML UDC GT SCH (08:40)
[2018-02-07] MEDS: VIT B CMPLX 3/FA/VIT C/BIOTIN 1 TAB TABLET GT SCH (08:41)
[2018-02-07] MEDS: PANTOPRAZOLE 40 MG/PACK PACK GT SCH (08:41)
[2018-02-07] MEDS: SEVELAMER CARBONATE 0.8 GM POWD.PACK GT SCH ×3 (08:41→17:02)
[2018-02-07] MEDS: LACTOBACILLUS RHAMNOSUS GG 1 EACH CAP.SPRINK PO SCH ×2 (08:42→17:01)
[2018-02-07] MEDS: FLUCONAZOLE (100 MG) 100 MG TABLET PO SCH (08:42)
[2018-02-07] MEDS: HYDROCODONE/APAP 5/325MG 1 EACH TABLET GT SCH (08:42)
[2018-02-07] MEDS: Z GUARD REMEDY 2 OZ OINT TP SCH (08:43)
[2018-02-07] MEDS: MIDODRINE HCL (5MG) 5 MG TABLET PO SCH ×3 (08:43→17:01)
[2018-02-07] MEDS: NEPRO 1,000 ML BOTTLE GT PRN (08:57)
[2018-02-07] MEDS: MEROPENEM 500 MG in IV NS 0.9% 50 ML IV SCH (08:58)
[2018-02-07] MEDS: NYSTATIN TOP POWDER 15 GM BOTTLE TP SCH ×2 (08:58→17:02)
[2018-02-07] MEDS: CLOTRIMAZOLE 1% 15 GM TUBE TP SCH ×2 (08:58→17:02)
[2018-02-07] MEDS: IV NS 0.9% 250 ML IV PRN (08:59)
--- NOTE | 2018-02-07 11:00 | NUR ---
TELE1/RN ROUNDS - Mikie PHAM UPDATED PT'S CONDITION. MADE MD AWARE THAT AV SHUNT IS NEGATIVE OF THRILL & BRUIT, VERIFIED TWICE BY HD NURSES. MD ORDERED TO PLACE PT NPO AFTER MIDNIGHT AND SUPPLEMENT OF IV HYDRATION. ORDER NOTED, WILL BE ENDORSED TO PM NURSE.
--- NOTE | 2018-02-07 12:00 | NUR ---
TELE1/RN NOON ROUNDS NO CHANGE OF CONDITION. MONITORING CONTINUED.
[2018-02-07] MEDS ORDERED: VANCOMYCIN 1 GM in IV D5W 250 ML IV ONE (14:00)
[2018-02-07] MEDS: HYDROCODONE/APAP 5/325MG 1 EACH TABLET GT PRN (17:14)
--- NOTE | 2018-02-07 19:16 | NUR ---
TELE1/RN AM SHIFT END NOTES NO ACUTE CHANGE OF CONDITION NOTED DURING THE SHIFT, ALL NEEDS MET. PT ENDORSED TO PM NURSE TO CONTINUE CARE, ALSO ENDORSED TO PLACED PT NPO AFTER MIDNIGHT AND START IV INFUSION FOR POSSIBLE PROCEDURE FOR AV SHUNT BY DR. LARSON. NO ORDER TO OBTAIN CONSENT FOR POSSIBLE PROCEDURE OF AV SHUNT. CL WITHIN REACHED AND SAFETY MAINTAINED.
--- NOTE | 2018-02-07 19:30 | NUR ---
TELE/RN NOTES: RECEIVED PT. IN BED W/ HOB ELEVATED W/MECH. VENT TOLERATING SETTINGS WELL. NO FACIAL GRIMACES OR MOANING NOTED. NO S/S OF ANY RESPIRATORY DISTRESS NOTED. ON TELE MONITOR W/ V-PACING. VEE MIDLINE C/D/I W/ NO S/S OF INFECTION/INFILTRATION NOTED. WILL BE ON D5 NS @ 50 CC/HR STARTING MIDNIGHT. GTF @ 35 CC/HR TOLERATING WELL W/ NO RESIDUAL NOTED. WILL BE NPO POST MIDNIGHT. TARUN AV FISTULA MALFUNCTION. CALL LIGHT W/REACH. ALL NEEDS MEET. WILL CONTINUE TO MONITOR.
[2018-02-08] VITALS (9 sets, daily range): BP systolic 82–168; BP diastolic 50–136
[2018-02-08] MEDS: IV D5/ 0.9% NACL 1,000 ML IV PRN (00:03)
[2018-02-08] MEDS: ALBUTEROL FS 2.5 MG/0.5 ML VIAL.NEB NEB SCH ×4 (01:36→19:07)
[2018-02-08] MEDS: IPRATROPIUM NEB FS 0.5 MG/2.5 ML AMPUL.NEB NEB SCH ×4 (01:37→19:07)
--- NOTE | 2018-02-08 07:27 | NUR ---
TELE/RN NOTES: NO ACUTE CHANGES NOTED DURING THIS SHIFT. REPORT GIVEN TO AM NURSE FOR KASSANDRA.
[2018-02-08 07:29] LABS: CALCIUM, SERUM 8.7 mg/dL (8.5-10.1); MAGNESIUM 2.1 mg/dL (1.8-2.4); PHOSPHORUS 6.7 mg/dL (2.5-4.9); POTASSIUM 3.8 mmol/L (3.5-5.1)
[2018-02-08 07:38] LABS: BASOPHILS # (AUTO) 0.4 /CMM (0.0-0.2); BASOPHILS % (AUTO) 3.2 % (0.0-2.0); EOSINOPHILS % (AUTO) 2.3 % (0.0-6.0); HEMATOCRIT 36 % (39-51); HEMOGLOBIN 11.2 g/dL (13.5-17.5); LYMPHOCYTES # (AUTO) 0.5 /CMM (0.8-4.8); LYMPHOCYTES % (AUTO) 4.3 % (20.0-44.0); MEAN CORPUSCULAR HEMOGLOBIN 28 PG (26.0-33.0); MEAN CORPUSCULAR HGB CONC 31 g/dl (31.0-36.0); MEAN CORPUSCULAR VOLUME 89 fL (80-96); MONOCYTES # (AUTO) 2.1 /CMM (0.1-1.30); MONOCYTES % (AUTO) 17.3 % (2.0-12.0); NEUTROPHILS % (AUTO) 72.9 % (43.0-81.0); PLATELET COUNT (AUTO) 146 /CMM (150-450); RDW COEFFICIENT OF VARIATION 20.2 (11.5-15.0); RED BLOOD CELL COUNT(AUTO) 3.98 MIL/uL (4.5-6.0); WHITE BLOOD COUNT (AUTO) 12.3 K/uL (4.3-11.0)
[2018-02-08] MEDS: MEROPENEM 500 MG in IV NS 0.9% 50 ML IV SCH (08:50)
[2018-02-08] MEDS: PANTOPRAZOLE 40 MG/PACK PACK GT SCH (08:52)
[2018-02-08] MEDS: SEVELAMER CARBONATE 0.8 GM POWD.PACK GT SCH ×3 (08:52→17:53)
[2018-02-08] MEDS: MIDODRINE HCL (5MG) 5 MG TABLET PO SCH ×3 (08:53→17:00)
[2018-02-08] MEDS: HYDROCODONE/APAP 5/325MG 1 EACH TABLET GT SCH (08:54)
[2018-02-08] MEDS: VIT B CMPLX 3/FA/VIT C/BIOTIN 1 TAB TABLET GT SCH (08:54)
[2018-02-08] MEDS: FLUCONAZOLE (100 MG) 100 MG TABLET PO SCH (08:54)
[2018-02-08] MEDS: LACTOBACILLUS RHAMNOSUS GG 1 EACH CAP.SPRINK PO SCH ×2 (08:54→17:53)
[2018-02-08 08:55] LABS: EOSINOPHILS % (MANUAL) 1 % (0-4); LYMPHOCYTES % (MANUAL) 4 % (16-48); MONOCYTES % (MANUAL) 6 % (0-11.0); NEUTROPHILS % (MANUAL) 89 (42-76)
[2018-02-08] MEDS: CLOTRIMAZOLE 1% 15 GM TUBE TP SCH ×2 (08:58→17:54)
[2018-02-08] MEDS: NYSTATIN TOP POWDER 15 GM BOTTLE TP SCH ×2 (08:58→18:10)
[2018-02-08] MEDS: PROSOURCE / PROSTAT (PYXIS) 30 ML UDC GT SCH (08:58)
[2018-02-08] MEDS: Z GUARD REMEDY 2 OZ OINT TP SCH (08:59)
[2018-02-08] MEDS: HYDROCODONE/APAP 5/325MG 1 EACH TABLET GT PRN ×2 (11:38→18:09)
--- NOTE | 2018-02-08 11:48 | NUR ---
RN NOTE PT CO ABOUT CHEST PAIN LEFT CHEST, 8/10 ON PAIN SCALE. BP168/136 MMHG, HR 75, DR MARTINEZ NOTIFIED, NO NEW ORDERS AT THIS TIME. WILL MONITOR PT CLOSELY.
[2018-02-08] MEDS: diphenhydrAMINE HCL 25 MG CAPSULE PO PRN (14:01)
[2018-02-08] MEDS: NEPRO 1,000 ML BOTTLE GT PRN (14:21)
--- NOTE | 2018-02-08 16:30 | NUR ---
RN NOTE SPOKE WITH JOELLE ORTIZ REGARDING THE PENILE LESION, NO NEW ORDERS, TO KEEP IT CLEAN AND DRY, VENDER OSBALDO AWARE WELL. WILL MONITOR FOR CHANGES.
--- NOTE | 2018-02-08 20:10 | NUR ---
RN NOTES RECEIVED PATIENT COMFORTABLY RESTING IN BED WITH NO RESPIRATORY DISTRESS OR SHORTNESS OF BREATH. BREATHING EVEN AND UNLABORED. VENT SETTING WELL TOLERATED.AWAKE, ALERT AND ORIENTED WITH EPISODES OF FORGETFULNESS AND CONFUSION. ABLE TO VERBALIZE NEEDS. NO COMPLAINT OF PAIN OR DISCOMFORT OF THIS TIME. GTUBE INTACT, FEEDING WELL TOLERATED. HOB ELEVATED. NPO AT MIDNIGHT FOR PROCEDURE WITH HD CATHETER INSERTION. KEPT CLEAN AND DRY. WILL CONTINUE TO MONITOR
[2018-02-09] VITALS (7 sets, daily range): BP systolic 85–131; BP diastolic 52–96
[2018-02-09] MEDS: IPRATROPIUM NEB FS 0.5 MG/2.5 ML AMPUL.NEB NEB SCH ×4 (00:56→19:16)
[2018-02-09] MEDS: ALBUTEROL FS 2.5 MG/0.5 ML VIAL.NEB NEB SCH ×4 (00:56→19:16)
[2018-02-09 06:43] LABS: BASOPHILS % (AUTO) 0.4 % (0.0-2.0); EOSINOPHILS % (AUTO) 3.7 % (0.0-6.0); HEMATOCRIT 28 % (39-51); LYMPHOCYTES # (AUTO) 0.7 /CMM (0.8-4.8); LYMPHOCYTES % (AUTO) 5.4 % (20.0-44.0); MEAN CORPUSCULAR HEMOGLOBIN 28 PG (26.0-33.0); MEAN CORPUSCULAR HGB CONC 32 g/dl (31.0-36.0); MEAN CORPUSCULAR VOLUME 89 fL (80-96); MONOCYTES # (AUTO) 0.6 /CMM (0.1-1.30); MONOCYTES % (AUTO) 5.1 % (2.0-12.0); NEUTROPHILS # (AUTO) 10.6 /CMM (1.8-8.9); NEUTROPHILS % (AUTO) 85.4 % (43.0-81.0); PLATELET COUNT (AUTO) 121 /CMM (150-450); RDW COEFFICIENT OF VARIATION 19.7 (11.5-15.0); RED BLOOD CELL COUNT(AUTO) 3.18 MIL/uL (4.5-6.0); WHITE BLOOD COUNT (AUTO) 12.5 K/uL (4.3-11.0)
[2018-02-09 06:50] LABS: INR 1.16 (0.87-1.13)
[2018-02-09 07:13] LABS: CALCIUM, SERUM 8.7 mg/dL (8.5-10.1); CREATININE 6.4 mg/dL (0.6-1.3); POTASSIUM 3.8 mmol/L (3.5-5.1)
[2018-02-09] MEDS: PANTOPRAZOLE 40 MG/PACK PACK GT SCH (07:30)
[2018-02-09] MEDS: SEVELAMER CARBONATE 0.8 GM POWD.PACK GT SCH ×3 (08:00→18:30)
[2018-02-09] MEDS: VIT B CMPLX 3/FA/VIT C/BIOTIN 1 TAB TABLET GT SCH (08:39)
[2018-02-09] MEDS: PROSOURCE / PROSTAT (PYXIS) 30 ML UDC GT SCH (08:40)
[2018-02-09] MEDS: HYDROCODONE/APAP 5/325MG 1 EACH TABLET GT SCH (08:40)
[2018-02-09] MEDS: LACTOBACILLUS RHAMNOSUS GG 1 EACH CAP.SPRINK PO SCH ×2 (08:40→17:00)
[2018-02-09] MEDS: FLUCONAZOLE (100 MG) 100 MG TABLET PO SCH (08:40)
[2018-02-09] MEDS: MIDODRINE HCL (5MG) 5 MG TABLET PO SCH ×3 (08:40→17:00)
[2018-02-09] MEDS: CLOTRIMAZOLE 1% 15 GM TUBE TP SCH ×2 (08:41→17:00)
[2018-02-09] MEDS: Z GUARD REMEDY 2 OZ OINT TP SCH (08:42)
--- NOTE | 2018-02-09 08:42 | NUR ---
UTILITIES ESTIMATOR AND DRAFTER NOTES: RECEIVED PT ON BED ASLEEP. NO ACUTE DISTRESS NOTED. NO FACIAL GRIMACING OR ANY SIGNS OF PAIN NOTED. NO SOB. ON MECH VENT, SATURATING WELL, SETTINGS ORDERED. VEE MIDLINE INTACT AND PATENT WITH D5 1/2NS RUNNING AT 50ML/HR. ON TELE MONITOR, V. PACING. SUCTIONED NEEDED. KEPT CLEAN, DRY AND COMFORTABLE. SAFETY AND FALL PRECAUTIONS OBSERVED AND MAINTAINED. WILL CONTINUE TO MONITOR PT.
[2018-02-09] MEDS: MEROPENEM 500 MG in IV NS 0.9% 50 ML IV SCH (09:07)
[2018-02-09] MEDS ORDERED: HEPARIN SODIUM, PORCINE 1,000 UNIT/ML VIAL ONE (14:29)
[2018-02-09] MEDS ORDERED: LIDOCAINE 0.5% HCL 50 ML VIAL ONE (14:30)
[2018-02-09] MEDS ORDERED: ANESTHESIA TRAY IN PYXIS 1 EA TRAY MC ONE (14:40)
--- NOTE | 2018-02-09 15:06 | NUR ---
RT RECEIVED PT TRACH ON VENT WITH NOTED SETTINGS, HEAD OF MERCHANDISE BUYING DONE AND TRACH IS SECURE. VENT PLUGGED IN RED OUTLET AND AMBU BAG NOTED HOB. SX WITH MOD THK YELLOW SECRETIONS. NO SOB OR DISTRESS NOTED AT THIS TIME, WILL CONTINUE TO MONITOR T/O SHIFT.
--- NOTE | 2018-02-09 16:51 | NUR ---
PROPERTY MANAGEMENT ACCOUNTANT NOTES: PATIENT WAS TRANSFERRED TO OR FOR SURGERY. IN NO ACUTE DISTRESS. NO FACIAL GRIMACING OR ANY SIGNS OF PAIN NOTED. VITAL SIGNS WNL.
--- NOTE | 2018-02-09 17:12 | NUR ---
MAINTENANCE PLANNER NOTES: UNABLE TO GIVE 1700 MEDS BECAUSE PT WAS TRANSFERRED TO OR FOR SURGERY
--- NOTE | 2018-02-09 17:50 | NUR ---
ROOF DESIGNER NOTES: RECEIVED PT FROM OR IN STABLE CONDITION. NO APPARENT DISTRESS NOTED. NO SOB. POST OP ORDERS RECEIVED AND CARRIED OUT. KEPT CLEAN, DRY AND COMFORTABLE. WILL CONTINUE TO MONITOR PT.
--- NOTE | 2018-02-09 17:50 | NUR ---
FUEL TRUCK DRIVER NOTES: RECEIVED PT FROM OR IN STABLE CONDITION. NO APPARENT DISTRESS NOTED. NO SOB. POST OP ORDERS RECEIVED AND CARRIED OUT. KEPT CLEAN, DRY AND COMFORTABLE. WILL CONTINUE TO MONITOR PT. Addendum: 02/09/18 at 1948 by VICTOR MANUEL HASSAN RN USER ERROR.
[2018-02-09] MEDS: NEPRO 1,000 ML BOTTLE GT PRN (18:39)
--- NOTE | 2018-02-09 19:30 | NUR ---
MIX HOUSE TENDER NOTES: PATIENT AWAKE, NON VERBAL. NO ACUTE DISTRESS NOTED. BREATHING EVEN AND UNLABORED. [facility], SETTINGS ORDERED. SATURATING WELL. VEE MIDLINE INTACT AND PATENT. GT FEEDING RESUMED, NEPRO 45ML/HR. NO RESIDUAL NOTED AT THIS TIME. V. PACING ON TELE MONITOR. TURNED AND REPOSITIONED Q2HRS AND NEEDED. SIDE RAILS UP X2. BED LOCKED AND IN LOWEST POSITION. KEPT CLEAN, DRY AND COMFORTABLE. WILL ENDORSE TO FISHING VESSEL DECKHAND FOR KASSANDRA.
--- NOTE | 2018-02-09 19:55 | NUR ---
[facility] RN NOTES RECEIVED BEDSIDE REPORT FROM AM NURSE.PATIENT IS IN BED,AWAKE, NON VERBAL. NO ACUTE DISTRESS NOTED. BREATHING EVEN AND UNLABORED. [facility], SETTINGS ORDERED. SATURATING WELL.LEFT IJ HD CATHETER NOTED. VEE MIDLINE INTACT AND PATENT.GT FEEDING NEPRO 45ML/HR, NO RESIDUAL NOTED AT THIS TIME. V. PACING 75 ON TELE MONITOR.HD NURSE IS BEDSIDE AT THIS TIME. ALL SAFETY MEASURES ARE IMPLEMENTED. SIDE RAILS UP X2. BED LOCKED AND IN LOWEST POSITION. WILL CONT. TO MONITOR.
[2018-02-09] MEDS: ACETAMINOPHEN 325 MG TABLET PO PRN (23:24)
[2018-02-10] VITALS (25 sets, daily range): BP systolic 40–167; BP diastolic 18–124
[2018-02-10] MEDS: IV D5/ 0.9% NACL 1,000 ML IV PRN ×2 (00:09→17:36)
[2018-02-10] MEDS: IPRATROPIUM NEB FS 0.5 MG/2.5 ML AMPUL.NEB NEB SCH ×4 (00:40→20:08)
[2018-02-10] MEDS: ALBUTEROL FS 2.5 MG/0.5 ML VIAL.NEB NEB SCH ×4 (00:40→20:08)
--- NOTE | 2018-02-10 01:10 | NUR ---
RT PATIENT RECEIVED ON A PORTEX #7 TRACH AND ON VENT W NOTED SETTINGS. VENT IS PLUGGED INTO RED OUTLET W ALARMS ON AND AUDIBLE W AN AMBUBAG AT BEDSIDE. DOMESTIC CLEANER CUFF PRESSURE NOTED. PATIENT TOLERATING VENT SETTINGS AND HHN TX WELL. NO RESPIRATORY DISTRESS NOTED AT THIS TIME. WILL CONTINUE TO MONITOR. Addendum: 02/10/18 at 0112 by RENY BRUSH RT Amended: Links added.
[2018-02-10] MEDS: CEFAZOLIN 1 GM in IV D5W 50 ML IV SCH ×2 (02:06→08:18)
[2018-02-10] MEDS: Z GUARD REMEDY 2 OZ OINT TP SCH (02:42)
[2018-02-10 07:04] LABS: CALCIUM, SERUM 8.1 mg/dL (8.5-10.1); CREATININE 5.8 mg/dL (0.6-1.3); POTASSIUM 3.6 mmol/L (3.5-5.1)
[2018-02-10] MEDS: PANTOPRAZOLE 40 MG/PACK PACK GT SCH (08:02)
[2018-02-10] MEDS: SEVELAMER CARBONATE 0.8 GM POWD.PACK GT SCH ×3 (08:02→17:34)
[2018-02-10] MEDS: diphenhydrAMINE HCL 25 MG CAPSULE PO PRN ×2 (08:18→15:30)
[2018-02-10] MEDS: LACTOBACILLUS RHAMNOSUS GG 1 EACH CAP.SPRINK PO SCH ×2 (08:19→17:34)
[2018-02-10] MEDS: VIT B CMPLX 3/FA/VIT C/BIOTIN 1 TAB TABLET GT SCH (08:19)
[2018-02-10] MEDS: FLUCONAZOLE (100 MG) 100 MG TABLET PO SCH (08:19)
[2018-02-10] MEDS: HYDROCODONE/APAP 5/325MG 1 EACH TABLET GT SCH (08:19)
[2018-02-10] MEDS: MIDODRINE HCL (5MG) 5 MG TABLET PO SCH ×3 (08:22→17:52)
[2018-02-10] MEDS: CLOTRIMAZOLE 1% 15 GM TUBE TP SCH ×2 (08:22→17:00)
[2018-02-10] MEDS: PROSOURCE / PROSTAT (PYXIS) 30 ML UDC GT SCH (08:23)
[2018-02-10] MEDS: MEROPENEM 500 MG in IV NS 0.9% 50 ML IV SCH (09:22)
--- NOTE | 2018-02-10 09:44 | NUR ---
RN NOTES: PT HAVING HD AT THE MOMENT BP LOW, ALBUMIN 25% 50ML X2 BOTTLES GIVEN BY HD NURSE. WILL CONT TO MONITOR.
[2018-02-10] MEDS: ALBUMIN 25% 25 GM in PREMIX 1 EA IV PRN (10:10)
--- NOTE | 2018-02-10 16:51 | NUR ---
RN NOTES: BP CHECKED 46/18 AT 1645 AND 69/29 AT 1650 HR 76. NOTIFIED CHARGE AND STATED WILL CALL DR SIMON. PT IS RESPONSIVE. GOT AN ICU BED RM [id number]. WILL CONT TO MONITOR.
--- NOTE | 2018-02-10 17:17 | NUR ---
RN NOTES: REPORT GIVEN TO KARELY SUPERVISOR FORMING AND TEMPERING.
--- NOTE | 2018-02-10 17:20 | NUR ---
CARPET TILE LAYER: got pt.from [facility] d/t low BP with HD, pt.is awake, eyes contact+, rest, very weak, no breath laboring, reactive/oriented by name, no pain now, c/o itching/scabies treated by report, Vpacing 75 HR, BP 167/85 now over R.f/a BP cuff, O2sat. over 96% on AC mode, FiO2 40%, getting IVF, GTF by report, R.arm midline: good blood return, anuric by report
--- NOTE | 2018-02-10 18:15 | NUR ---
GAS WORKER: pt. is sleepy, easy able to awake up by name, no c/o, no pain, HR 75 Vpacing, O2sat. over 94%, unable to use upper arms for BP monitoring, SBP over R.f/a:50-167, L.calf: 40-87, text notified, ?Levophed drip prn: continue monitoring BP over R.radial artery
[2018-02-10] MEDS: NEPRO 1,000 ML BOTTLE GT PRN (18:20)
--- NOTE | 2018-02-10 18:30 | NUR ---
TWISTER FRAME TENDER: R.radial artery BP cuff: SBP 124 now, updated, said: no Levophed if possible, will endorse report for next nurse
--- NOTE | 2018-02-10 20:30 | NUR ---
ACCELERATOR TECHNICIAN OPENING NOTES RECEIVED REPORT FROM KARELY VINSON. PATIENT A/O X1-2, LETHARGIC & SLEEPY BUT EASILY AROUSABLE TO NAME AND TOUCH. BREATHING EVEN & UNLABORED W/ TRACH INTACT & VENT SETTINGS AC 16, TV 500, FIO2 40%, PEEP 0. ON TELE W/ VPACING, HR 70S. NO RESPIRATORY OR CARDIAC DISTRESS NOTED. NOTED W/ LOW BP IN 60S BUT RECHECKED A FEW TIMES & PLACED HOB FLAT & LAST BP 84/33 ON RIGHT RADIAL. OK FOR SBP TO BE 80 & ABOVE PER DR SIMON. RIGHT UPPER ARM MIDLINE INTACT & PATENT W/ DRESSING CDI, SALINE LOCKED. G-TUBE FLUSHING WELL BUT W/ LEAKING NOTED AROUND STOMA SITE. GTF HELD & G-TUBE CLAMPED @ THIS TIME. CHARGE NURSE AWARE & WILL INFORM MD. DENIES ANY PAIN OR DISCOMFORT @ THIS TIME. SAFETY MEASURES IN PLACE. WILL CONTINUE TO MONITOR CLOSELY.
--- NOTE | 2018-02-10 22:38 | NUR ---
PT RECEIVED TRACHED PTX 7 ON [facility] VENT. NO RESP DISTRESS NOTED. PT TOLERATING VENT SETTINGS. SX'D FOR MOD AMT OF THICK YELLOW SECRETIONS. VENT ALARMS SET AND AUDIBLE. AMBU BAG AT BEDSIDE. VENT PLUGGED INTO RED OUTLET. WILL CONTINUE TO MONITOR. Addendum: 02/10/18 at 2239 by QUINTIN GÓMEZ RT Amended: Links added.
[2018-02-11] VITALS (42 sets, daily range): BP systolic 41–189; BP diastolic 13–108
[2018-02-11] MEDS: IPRATROPIUM NEB FS 0.5 MG/2.5 ML AMPUL.NEB NEB SCH ×4 (00:52→19:59)
[2018-02-11] MEDS: ALBUTEROL FS 2.5 MG/0.5 ML VIAL.NEB NEB SCH ×4 (00:52→19:58)
[2018-02-11 05:21] LABS: CALCIUM, SERUM 8.7 mg/dL (8.5-10.1); CREATININE 5.7 mg/dL (0.6-1.3); POTASSIUM 3.5 mmol/L (3.5-5.1)
[2018-02-11] MEDS: PANTOPRAZOLE 40 MG/PACK PACK GT SCH (07:30)
[2018-02-11] MEDS: SEVELAMER CARBONATE 0.8 GM POWD.PACK GT SCH ×3 (08:00→18:14)
[2018-02-11] MEDS: MEROPENEM 500 MG in IV NS 0.9% 50 ML IV SCH (08:36)
[2018-02-11] MEDS: Z GUARD REMEDY 2 OZ OINT TP SCH (08:42)
[2018-02-11] MEDS: MIDODRINE HCL (5MG) 5 MG TABLET PO SCH ×3 (09:00→18:40)
[2018-02-11] MEDS: HYDROCODONE/APAP 5/325MG 1 EACH TABLET GT SCH (09:00)
[2018-02-11] MEDS: LACTOBACILLUS RHAMNOSUS GG 1 EACH CAP.SPRINK PO SCH ×2 (09:00→18:14)
[2018-02-11] MEDS: VIT B CMPLX 3/FA/VIT C/BIOTIN 1 TAB TABLET GT SCH (09:00)
[2018-02-11] MEDS: PROSOURCE / PROSTAT (PYXIS) 30 ML UDC GT SCH (09:00)
[2018-02-11] MEDS: FLUCONAZOLE (100 MG) 100 MG TABLET PO SCH (09:00)
[2018-02-11] MEDS: CLOTRIMAZOLE 1% 15 GM TUBE TP SCH ×2 (09:17→18:51)
--- NOTE | 2018-02-11 11:00 | NUR ---
COLLECTION ANALYST NOTE: RECEIVED PATIENT FROM [facility] MAGALLANES RN FOR CONTINUITY OF CARE. PATIENT IS ASLEEP, AROUSABLE WITH TACTILE STIMULI. HOB ELEVATED. GT FEEDING WAS HELD DUE TO LEAKING G-TUBE. INFORMED DR. SIMON ABOUT IT AND PER MD, CALL THE GI DOCTOR FOR THE LEAKING GT. (R) UA MIDLINE INTACT AND PATENT INFUSING D5NS @50ML/HR. AFEBRILE. HOB ELEVATED. CALL LIGHT WITHIN REACH.
[2018-02-11] MEDS: HYDROCORTISONE SOD SUCCINATE 100 MG/2 ML VIAL IV SCH ×3 (11:55→17:58)
[2018-02-11] MEDS: VANCOMYCIN 500 MG in IV D5W 100 ML IV PRN (13:29)
--- NOTE | 2018-02-11 13:39 | NUR ---
COMMERCIAL CARPENTER NOTE: PATIENT'S MIDODRINE AND RENVELA WAS NOT ADMINISTERED BECAUSE THE GT SITE WAS LEAKING. DR. MCCARTNEY WAS AWARE OF IT AND SAID THAT HE WILL COME AND SEE THE PATIENT TODAY.
[2018-02-11] MEDS: IV D5/ 0.9% NACL 1,000 ML IV PRN (14:52)
--- NOTE | 2018-02-11 16:13 | NUR ---
DOCK MANAGER NOTE: DR. MCCARTNEY CAME AND CHECKED THE PATIENT'S GT SITE. PER MD, HE WANTED A GT REPLACEMENT. MD REMOVED THE OLD GT AND INSERTED A 20FR GT ON THE STOMA. MD WITH ORDER, NOTED AND CARRIED OUT.
[2018-02-11] MEDS ORDERED: DIATR MEGLU/DIATRIZOATE SODIUM 30 ML BOTTLE (GASTROGRAPHIN) ONE (16:14)
[2018-02-11] MEDS ORDERED: MAG HYDROX/AL HYDROX/SIMETH 30 ML UDC PO PRN (16:30)
[2018-02-11] MEDS: SIMETHICONE SUSP 40 MG/0.6 ML BOTTLE PO PRN (17:59)
[2018-02-11] MEDS: BACITRACIN ZINC OINT (15 GM) 15 GM TUBE TP PRN (17:59)
--- NOTE | 2018-02-11 18:08 | NUR ---
FUR DRESSER NOTE: SPOKE WITH DR. MCCARTNEY RE: THE ABDOMINAL X-RAY RESULT. READ THE IMPRESSION TO MD AND THE RECOMMENDATION FOR CT SCAN OF ABD/PELVIS FOR COMPLETE ASSESSMENT. PER MD, THE AIR IN THE ABDOMINAL AREA WAS EXPECTED AND PATIENT WAS NOTED RESTING QUIETLY IN BED WITH NO FACIAL GRIMACING NOTED. PER MD, IT'S OK TO START USING THE GT FOR FEEDING AND MEDICATION ADMINISTRATION.
--- NOTE | 2018-02-11 19:30 | NUR ---
RN NOTES RECEIVED PT ASLEEP ON BED AOX 2, FOLLOWS COMMAND. DENIES PAIN AT THIS TIME., V-PACING ON TELE MONITOR. NO ACUTE RESP DISTRESS WITH TRACH PORTEX 7 VENT SETTING AC 16, TV 500 FIO2 40% NO PEEP. SUCTIONED WITH YELLOWISH THICK COLOR SECRETION. GT INTACT KUB RESULT WAS GASTROSTOMY TUBE IS WITHIN THE STOMACH, NEPHRO @ 45 ML/HR ONGOING,. REDNESS AND BULK AREA NOTED ON THE LEFT SIDE. GURGLING SOUND HEARD GT IS INTACT AND PATENT WITH RESIDUAL OF 150 ML. IV SITE ON VEE MIDLINE RUNNING WITH D5 NS @ 50 ML/HE . LCW FISTULA CLEAN AND DRY. KEPT PT CLEAN AND DRY. WILL CONTINUE TO MONITOR.
--- NOTE | 2018-02-11 19:55 | NUR ---
RESEARCH ASST NOTE: PATIENT ON STABLE CONDITION. GT FEEDING WAS STARTED AND PM MEDICATIONS GIVEN. REPORT GIVEN TO PM SHIFT NURSE FOR CONTINUITY OF CARE.
--- NOTE | 2018-02-11 20:20 | NUR ---
RN NOTES NOTED PT GT WITH RESIDUAL OF 150 ML. HELD GTF AND WILL RECHECKED AFTER 2 HOUR.
--- NOTE | 2018-02-11 20:31 | NUR ---
PT RECEIVED TRACHED PTX 7 ON [facility] VENT. PT TOLERATING VENT SETTINGS. SX'D FOR MOD AMT OF THICK YELLOW SECRETIONS. VENT ALARMS SET AND AUDIBLE. AMBU BAG AT BEDSIDE. VENT PLUGGED INTO RED OUTLET. WILL CONTINUE TO MONITOR. Addendum: 02/11/18 at 2030 by QUINTIN GÓMEZ RT Amended: Links added.
--- NOTE | 2018-02-11 22:30 | NUR ---
RN NOTES RECHECKED GT RESIDUAL WITH 40 ML MORE AIR NOTED, GT INTACT AND PATENT BUT COMPLAIN OF PAIN ON LEFT SIDE REPOSITIONED PT AND EASE THE PAIN. NEPHRO @ 45 ML/HR RESTARTED.
[2018-02-12] VITALS (48 sets, daily range): BP systolic 37–209; BP diastolic 15–138
[2018-02-12] MEDS: IPRATROPIUM NEB FS 0.5 MG/2.5 ML AMPUL.NEB NEB SCH ×4 (00:42→19:30)
[2018-02-12] MEDS: ALBUTEROL FS 2.5 MG/0.5 ML VIAL.NEB NEB SCH ×4 (00:42→19:30)
[2018-02-12] MEDS: diphenhydrAMINE HCL 25 MG CAPSULE PO PRN (04:36)
[2018-02-12 05:19] LABS: BASOPHILS % (AUTO) 0.1 % (0.0-2.0); HEMATOCRIT 27 % (39-51); HEMOGLOBIN 8.8 g/dL (13.5-17.5); LYMPHOCYTES # (AUTO) 0.4 /CMM (0.8-4.8); LYMPHOCYTES % (AUTO) 2.3 % (20.0-44.0); MEAN CORPUSCULAR HEMOGLOBIN 29 PG (26.0-33.0); MEAN CORPUSCULAR HGB CONC 32 g/dl (31.0-36.0); MEAN CORPUSCULAR VOLUME 89 fL (80-96); MONOCYTES # (AUTO) 0.3 /CMM (0.1-1.30); MONOCYTES % (AUTO) 1.7 % (2.0-12.0); NEUTROPHILS # (AUTO) 18.1 /CMM (1.8-8.9); NEUTROPHILS % (AUTO) 95.9 % (43.0-81.0); PLATELET COUNT (AUTO) 97 /CMM (150-450); RDW COEFFICIENT OF VARIATION 20.2 (11.5-15.0); RED BLOOD CELL COUNT(AUTO) 3.08 MIL/uL (4.5-6.0); WHITE BLOOD COUNT (AUTO) 18.8 K/uL (4.3-11.0)
[2018-02-12 05:44] LABS: CALCIUM, SERUM 9.1 mg/dL (8.5-10.1); CREATININE 6.2 mg/dL (0.6-1.3); MAGNESIUM 2.1 mg/dL (1.8-2.4); PHOSPHORUS 4.9 mg/dL (2.5-4.9); POTASSIUM 3.7 mmol/L (3.5-5.1)
[2018-02-12 05:53] LABS: BAND % (MANUAL) 7 % (0.0-5.0); LYMPHOCYTES % (MANUAL) 2 % (16-48); MONOCYTES % (MANUAL) 1 % (0-11.0); NEUTROPHILS % (MANUAL) 90 (42-76)
--- NOTE | 2018-02-12 06:37 | NUR ---
RN NOTES PT STABLE ALERT AND FOLLOWS COMMAND. STABLE THROUGHOUT THE SHIFT. SLEEP WELL.AFEBRILE. NO PRESSOR, INCONTINENT CARE RENDERED. BED BATH AND SKIN RE ASSESSMENT DONE. NO ACUTE RESP DISTRESS TRACH AND VENT SETTING TOLERATED WELL SATURATION >97- 100%. NO ASE FROM IV ATB. BP CONTINUE TO MONITOR. IV SITE INTACT AND PATENT, FREQ. SUCTIONING PROVIDED DUE TO THICK YELLOWISH SECRETION. KEPT PT CLEAN AND DRY WILL ENDORSED CONTINUITY OF CARE TO AM NURSE.
[2018-02-12] MEDS ORDERED: MAG HYDROX/AL HYDROX/SIMETH 30 ML UDC TP PRN (07:30)
--- NOTE | 2018-02-12 07:36 | NUR ---
STAFF CYTOTECHNOLOGIST RECEIVED PATIENT FROM THE PREVIOUS SHIFT. PATIENT IS IN BED. RESTING COMFORTABLY. NO ACUTE DISTRESS NOTED. AFEBRILE. STABLE VITAL SINGS. TURNED AND REPOSITIONED FOR COMFORT AND WOUND PREVENTION. WILL CONTINUE TO MONITOR AND PROVIDE CARE.
[2018-02-12] MEDS: SEVELAMER CARBONATE 0.8 GM POWD.PACK GT SCH ×3 (08:35→17:57)
[2018-02-12] MEDS: FLUCONAZOLE (100 MG) 100 MG TABLET PO SCH (08:35)
[2018-02-12] MEDS: LACTOBACILLUS RHAMNOSUS GG 1 EACH CAP.SPRINK PO SCH ×2 (08:35→17:00)
[2018-02-12] MEDS: VIT B CMPLX 3/FA/VIT C/BIOTIN 1 TAB TABLET GT SCH (08:35)
[2018-02-12] MEDS: MIDODRINE HCL (5MG) 5 MG TABLET PO SCH ×3 (08:36→17:00)
[2018-02-12] MEDS: HYDROCODONE/APAP 5/325MG 1 EACH TABLET GT SCH (08:36)
[2018-02-12] MEDS: CLOTRIMAZOLE 1% 15 GM TUBE TP SCH ×2 (08:36→18:01)
[2018-02-12] MEDS: MEROPENEM 500 MG in IV NS 0.9% 50 ML IV SCH (08:36)
[2018-02-12] MEDS: Z GUARD REMEDY 2 OZ OINT TP SCH (08:36)
[2018-02-12] MEDS: BACITRACIN ZINC OINT (15 GM) 15 GM TUBE TP PRN (08:36)
[2018-02-12] MEDS: PANTOPRAZOLE 40 MG/PACK PACK GT SCH (08:40)
[2018-02-12] MEDS: PROSOURCE / PROSTAT (PYXIS) 30 ML UDC GT SCH (08:40)
[2018-02-12] MEDS: HYDROCORTISONE SOD SUCCINATE 100 MG/2 ML VIAL IV SCH ×3 (10:28→18:01)
[2018-02-12] MEDS: HYDROCODONE/APAP 5/325MG 1 EACH TABLET GT PRN (12:23)
[2018-02-12] MEDS ORDERED: DIATR MEGLU/DIATRIZOATE SODIUM 30 ML BOTTLE (GASTROGRAPHIN) ONE (15:07)
--- NOTE | 2018-02-12 19:57 | NUR ---
PT RECEIVED TRACHED PTX 7 ON [facility] VENT. PT TOLERATING VENT SETTINGS. SX'D FOR MOD AMT OF THICK YELLOW SECRETIONS. VENT ALARMS SET AND AUDIBLE. AMBU BAG AT BEDSIDE. VENT PLUGGED INTO RED OUTLET. WILL CONTINUE TO MONITOR. Addendum: 02/12/18 at 1957 by QUINTIN GÓMEZ RT Amended: Links added.
--- NOTE | 2018-02-12 20:35 | NUR ---
ICU NOTES RECEIVED PT ON VENT PER TRACH.AWAKE,FOLLOWS SIMPLE VERBAL COMMANDS.SUCTIONED VIA TRACH OF SCANT AMT.YELLOWISH THICK SECRETIONS AND MODERATE ORAL SECRETIONS,ORAL CARE DONE.SBP=69 W/ AUTOMATIC CUFF BUT MANUAL SBP=80MMHG.MONITOR SHOWS 100% V-PACED.
[2018-02-13] VITALS (31 sets, daily range): BP systolic 51–108; BP diastolic 16–65
[2018-02-13] MEDS: ALBUTEROL FS 2.5 MG/0.5 ML VIAL.NEB NEB SCH ×4 (01:37→19:50)
[2018-02-13] MEDS: IPRATROPIUM NEB FS 0.5 MG/2.5 ML AMPUL.NEB NEB SCH ×4 (01:37→19:50)
--- NOTE | 2018-02-13 06:00 | NUR ---
ICU NOTES PT AWAKE ALERT,FOLLOWS COMMANDS.SUCTIONED VIA TRACH FOR SCANT AMT PINK-TINGED SECRETIONS AND SCANT AMT ORALLY.DRESSING TO SACRAL AREA AND SURROUNDING AREAS CLEANSED W/ SALINE.APPLIED TO SACRAL AREA NON ADHERENT DRESSING MEPILEX AND 4X4 FOR BLEEDING.GT INTACT AND REMAINS CLAMPED,AREA TO LT. SIDE REDDENED AND BULGING.
[2018-02-13] MEDS: IV D5/ 0.9% NACL 1,000 ML IV PRN (06:34)
--- NOTE | 2018-02-13 07:15 | NUR ---
ICU NOTES REPORT AND CARE OF PT GIVEN TO YANET VINSON.
[2018-02-13] MEDS: HYDROCORTISONE SOD SUCCINATE 100 MG/2 ML VIAL IV SCH ×2 (08:25→13:00)
[2018-02-13] MEDS: Z GUARD REMEDY 2 OZ OINT TP SCH (08:26)
[2018-02-13] MEDS: MEROPENEM 500 MG in IV NS 0.9% 50 ML IV SCH (08:41)
[2018-02-13] MEDS: BACITRACIN ZINC OINT (15 GM) 15 GM TUBE TP PRN (08:42)
[2018-02-13] MEDS: NYSTATIN TOP POWDER 15 GM BOTTLE TP SCH ×2 (08:44→16:33)
[2018-02-13] MEDS: SEVELAMER CARBONATE 0.8 GM POWD.PACK GT SCH ×3 (09:09→17:34)
[2018-02-13] MEDS: VIT B CMPLX 3/FA/VIT C/BIOTIN 1 TAB TABLET GT SCH (09:09)
[2018-02-13] MEDS: NEPRO 1,000 ML BOTTLE GT PRN (09:09)
[2018-02-13] MEDS: MIDODRINE HCL (5MG) 5 MG TABLET PO SCH ×3 (09:10→16:30)
[2018-02-13] MEDS: PROSOURCE / PROSTAT (PYXIS) 30 ML UDC GT SCH (09:10)
[2018-02-13] MEDS: PANTOPRAZOLE 40 MG/PACK PACK GT SCH (09:10)
[2018-02-13] MEDS: HYDROCODONE/APAP 5/325MG 1 EACH TABLET GT SCH (09:10)
[2018-02-13] MEDS: LACTOBACILLUS RHAMNOSUS GG 1 EACH CAP.SPRINK PO SCH ×2 (09:10→16:30)
--- NOTE | 2018-02-13 09:15 | NUR ---
ICU/RN: Dr Brown at bedside; updated on pt status. Per MD, no evidence of barotrauma. Cleared by pulmonology for downgrade.
--- NOTE | 2018-02-13 10:30 | NUR ---
ICU/RN: Dr Dodd informed of CT Pelvis, ABD results: large amount of SQ emphysema to left ant abd wall, new compared to previous CT. Small foci of gas noted to PEG site, majority of SQ emphysema centered more superiorly and laterally. Pt CO pain and palpation to abdominal area, distended to touch. Per MD, case was dw Dr Joseph Ferro (surgical consult) and will be in to see pt later. TF held. Informed MD of BP in 90-100's off pressors.
--- NOTE | 2018-02-13 11:15 | NUR ---
ICU/RN: Pt vomited 300cc bile, Zofran admin by ore charger. Moderate amount of yellow, granulated stool noted. Wound care rendered. Aspiration precautions in place. Will cont to monitor pt.
[2018-02-13] MEDS ORDERED: ONDANSETRON HCL/PF 4 MG/2 ML VIAL ONE (11:16)
[2018-02-13] MEDS ORDERED: ONDANSETRON HCL/PF 4 MG/2 ML VIAL IV PRN (11:30)
--- NOTE | 2018-02-13 16:00 | NUR ---
ICU/RN: Maribel Barboza EDGE TRIMMER MECHANIC at bedside for surgical consult; informed of CT ABD/Pelv results, emesis x3, TF leak around trach site, abd crepitus and redness on L side. Placed GT on LIS. Hold TF, keep NPO. Will cont to monitor pt.
--- NOTE | 2018-02-13 16:15 | NUR ---
ICU/RN: Pt s/b Dr Keller, updated on pt status. Informed of emesis, imaging results, surgical recommendations. Order for US paracentesis noted. Consent obtained from . Will cont to monitor pt.
--- NOTE | 2018-02-13 17:33 | NUR ---
Received trach pt on mechanical vent. Pt tolerated current vent settings well. No changes made. Vent is plugged into a red outlet, alarms are set and audible, and BVM is at bedside. Addendum: 02/13/18 at 1734 by JUNIOR PERRY RT Amended: Links added.
--- NOTE | 2018-02-13 19:30 | NUR ---
RN INITIAL NOTES RECEIVED THE PATIENT AWAKE ON BED, A/O X1, ABLE TO FOLLOW SIMPLE COMMANDS. PT IS ON VENT WITH SETTINGS AC 15, TV 500, 40% FIO2, PEEP 0, PORTEX 7, SATURATING WELL, NO S/S OF RESP DISTRESS. CURRENTLY VPACING ON THE MONITOR, HR 75. MANUAL BP TO OBTAIN Q4H FOR ACCURATE RESULTS. PT IS ANURIC. LEFT UPPER CHEST MIKAYLA CATH INTACT. RIGHT UPPER ARM MIDLINE WITH D5NS @ 50MLS/HR, FLUSHED AND PATENT, NO S/S OF INFILTRATION/INFECTION, DRESSING CDI. BED LOW AND LOCKED, SIDERAILS UP, CALL LIGHT WITHIN REACH. WILL MONITOR
[2018-02-14] VITALS (33 sets, daily range): BP systolic 45–128; BP diastolic 15–72
[2018-02-14] MEDS: ALBUTEROL FS 2.5 MG/0.5 ML VIAL.NEB NEB SCH ×4 (01:15→19:31)
[2018-02-14] MEDS: IPRATROPIUM NEB FS 0.5 MG/2.5 ML AMPUL.NEB NEB SCH ×4 (01:15→19:31)
[2018-02-14] MEDS: IV D5/ 0.9% NACL 1,000 ML IV PRN (04:23)
[2018-02-14 04:33] LABS: EOSINOPHILS % (AUTO) 0.2 % (0.0-6.0); HEMATOCRIT 27 % (39-51); HEMOGLOBIN 8.9 g/dL (13.5-17.5); LYMPHOCYTES # (AUTO) 0.6 /CMM (0.8-4.8); LYMPHOCYTES % (AUTO) 3.9 % (20.0-44.0); MEAN CORPUSCULAR HEMOGLOBIN 29 PG (26.0-33.0); MEAN CORPUSCULAR HGB CONC 32 g/dl (31.0-36.0); MEAN CORPUSCULAR VOLUME 90 fL (80-96); MONOCYTES # (AUTO) 0.3 /CMM (0.1-1.30); MONOCYTES % (AUTO) 1.8 % (2.0-12.0); NEUTROPHILS # (AUTO) 14.7 /CMM (1.8-8.9); NEUTROPHILS % (AUTO) 94.1 % (43.0-81.0); PLATELET COUNT (AUTO) 82 /CMM (150-450); RDW COEFFICIENT OF VARIATION 20.2 (11.5-15.0); RED BLOOD CELL COUNT(AUTO) 3.05 MIL/uL (4.5-6.0); WHITE BLOOD COUNT (AUTO) 15.7 K/uL (4.3-11.0)
[2018-02-14 05:12] LABS: CALCIUM, SERUM 8.9 mg/dL (8.5-10.1); CREATININE 5.7 mg/dL (0.6-1.3); PHOSPHORUS 4.3 mg/dL (2.5-4.9); POTASSIUM 3.4 mmol/L (3.5-5.1)
[2018-02-14 05:33] LABS: INR 1.25 (0.87-1.13)
[2018-02-14 05:53] LABS: LYMPHOCYTES % (MANUAL) 7 % (16-48); MONOCYTES % (MANUAL) 2 % (0-11.0); NEUTROPHILS % (MANUAL) 91 (42-76)
--- NOTE | 2018-02-14 06:10 | NUR ---
RN CLOSING NOTES PT REMAINS STABLE OF THE MOMENT. ALL DUE MEDS GIVEN, AM CARE PROVIDED. WILL ENDORSE KASSANDRA TO AM RN
--- NOTE | 2018-02-14 07:05 | NUR ---
METAL FINISHER NOTES RECEIVED PT ASLEEP ON BED AOX2, FOLLOWS COMMAND. DENIES PAIN AT THIS TIME., V-PACING 75 ON BEDSIDE MONITOR. NO ACUTE RESP DISTRESS WITH TRACH PORTEX [address] VENT SETTING ORDERED WITH SPO2 OF 100% . SUCTIONED FOR AIRWAY CLEARANCE , GT ON LOW INTERMITTENT SUCTION , NO OUTPUT NOTED ,IV SITE ON VEE MIDLINE RUNNING WITH D5 NS @ 50 ML/HE . LCW MIKAYLA CATH CLEAN AND DRY. KEPT PT CLEAN AND DRY. WILL CONTINUE TO MONITOR.
--- NOTE | 2018-02-14 07:35 | NUR ---
RT PATIENT REC'D TRACHED ON [facility] VENT WITH ORDERED SETTINGS RAE WELL. VENT ALARMS CHECKED + AUDIBLE. VENT PLUGGED INTO RED OUTLET. ALL VENT TUBING CONNECTIONS TIGHT AND IN PROPER POSITION. PATIENT TRACH CHECKED AND SECURE IN PROPER POSITION. CUFF PRESSURE CHECKED RADIOGRAPHER MAMMOGRAPHER. AIRWAY SUCTIONED WITH SMALL/MODERATE AMOUNT OF PALE SEMITHICK SECRETIONS. B/S DIM COARSE. PATIENT APPEARS COMFORTABLE, NON RESPONSIVE TO VERBAL COMMANDS. NO SOB NOTED. AMBU BAG AND BACK UP TRACH AT HOB. CONT CURRENT PLAN OF RESPIRATORY CARE. Addendum: 02/14/18 at 1358 by CARINE BAUER RT Amended: Links added.
--- NOTE | 2018-02-14 07:54 | NUR ---
PATTERNMAKER HAND NOTES GT ON LOW INTERMITTENT SUCTION , DRAINING WITH THICK GREENISH SECRETIONS , WILL CONTINUE TO MONITOR .
[2018-02-14] MEDS ORDERED: POTASSIUM CHLORIDE 20 MEQ POWDER PACKET GT SCH (08:00)
[2018-02-14] MEDS: PANTOPRAZOLE 40 MG/PACK PACK GT SCH (08:29)
[2018-02-14] MEDS: SEVELAMER CARBONATE 0.8 GM POWD.PACK GT SCH ×3 (08:29→17:00)
[2018-02-14] MEDS: VIT B CMPLX 3/FA/VIT C/BIOTIN 1 TAB TABLET GT SCH (08:31)
[2018-02-14] MEDS: MIDODRINE HCL (5MG) 5 MG TABLET PO SCH ×3 (08:31→16:45)
[2018-02-14] MEDS: LACTOBACILLUS RHAMNOSUS GG 1 EACH CAP.SPRINK PO SCH ×2 (08:31→16:45)
[2018-02-14] MEDS: PROSOURCE / PROSTAT (PYXIS) 30 ML UDC GT SCH (08:31)
[2018-02-14] MEDS: HYDROCODONE/APAP 5/325MG 1 EACH TABLET GT SCH (08:32)
[2018-02-14] MEDS: MEROPENEM 500 MG in IV NS 0.9% 50 ML IV SCH (08:32)
[2018-02-14] MEDS: Z GUARD REMEDY 2 OZ OINT TP SCH (08:32)
[2018-02-14] MEDS: NYSTATIN TOP POWDER 15 GM BOTTLE TP SCH ×2 (08:32→16:45)
--- NOTE | 2018-02-14 08:56 | NUR ---
OFFSET LITHOGRAPHIC PRESS SETTER NOTES SEEN AND EVALUATED BY DR SIMON , DISCUSSED LABS , PENDING US GUIDED PARACENTESIS , PT GT ON LOW INTERMITTENT SUCTION DUE TO HIGH RESIDUALS , DRAINING WITH GREENISH OUTPUT 10ML IN AMOUNT , PER MD STOP LOW ICS , MONITOR RESIDUALS , IF NO GT RESIDUALS MAY START GTF , IF PT IS TOLERATING GT FEEDING , STOP IVF ORDERED , VERIFIED TRANSFER ORDERS DR CONLEY ORDER TO TRANSFER THE PATIENT TO TELE , PER DR SIMON TRANSFER PT TO [place] .
--- NOTE | 2018-02-14 08:58 | NUR ---
ASSEMBLER KNIFE NOTES DUE MEDS GIVEN , NO GASTRIC RESIDUALS NOTED VIA GT UPON ASPIRATING , GT CLAMPED , WILL RESTART GT FEEDING RECOMMENDED
[2018-02-14] MEDS ORDERED: NEPRO 1,000 ML BOTTLE GT PRN (09:30)
--- NOTE | 2018-02-14 10:50 | NUR ---
STREETCAR REPAIRER HELPER NOTES NOTIFIED DR MCCARTNEY THAT PT IS SCHEDULE FOR PARACENTESIS TODAY , VERIFIEID IF HE WANTS TO SENT THE FLUID FOR CYTOLOGY , PER MD SEND ASCITES FLUID FOR CYTOLOGY , CELL COUNT , TOTAL PROTEIN , ALBUMIN AND CULTURE , ORDERS CARRIED OUT
--- NOTE | 2018-02-14 10:56 | NUR ---
FOLDED TOWEL MACHINE OPERATOR NOTES US TECH AT BEDSIDE FOR US GUIDED PARACENTESIS . NOTIFIED TECH THAT CONSENT ARE SIGNED , WILL CONTINUE TO MONITOR
--- NOTE | 2018-02-14 11:51 | NUR ---
INVENTORY WORKER NOTES PATIENT STABLE S/P PARACENTESIS 7.2 L OUT , BROWNISH COLOR , VSS , PUNCTURE SITE C/D/ I , SPECIMEN LABELED AND SENT TO LAB .
--- NOTE | 2018-02-14 12:00 | NUR ---
CAR TRIMMER NOTES STARTED GT FEEDING OF NEPHRO @ 20ML/HR WILL TITRATE RATE PATIENT TOLERATES . NO GASTRIC RESIDUALS UPON ASPIRATING , WILL CONTINUE TO MONITOR
[2018-02-14] MEDS: NEPRO 1,000 ML BOTTLE GT PRN (12:03)
[2018-02-14] MEDS ORDERED: FEE PK DOSING 1 MIN EA MC ONE (14:03)
--- NOTE | 2018-02-14 17:00 | NUR ---
JUKEBOX COIN COLLECTOR NOTES PT STABLE PRIOR TO HD , VSS , WILL CONTINUE TO MONITOR
[2018-02-14] MEDS: VANCOMYCIN 500 MG in IV D5W 100 ML IV PRN (19:05)
--- NOTE | 2018-02-14 19:09 | NUR ---
ADMINISTRATIVE SERVICES MANAGER NOTES PATIENT STABLE S/P HD , TOLERATED WELL , NO OUTPUT NOTED , AOX1- ABLE TO FOLLOW COMMANDS , VSS , VANCOMYCIN POST HD GIVEN .
--- NOTE | 2018-02-14 21:00 | NUR ---
WELDER FITTER ARC - REC'D REPORT FROM MICHA RN. REC'D PT. IN ISOLATION FOR PAST/POSSIBLE SCABIES. PT'S HEART MONITOR SHOWS SBP'S IN THE 30'S TO 50'S. MANUAL PRESSURES ARE ORDERED FOR Q4HRS. NOTED. PACER TO RT.UPPER C/W-V/PACING=70'S. PORTEX-#7 W/AC-16,TV-500,40%. RHONCHI TO ALL LOBES. O2 SATS ARE >94%. PEGGED/NEPRO AT 45CC/HR. NO RESIDUALS. ANURIC. DX DONE TODAY. CHARLY STANFORD HAS ALL PORTS PATENT TO FLUSH. AFEBRILE. PT. HAS ALOT OF SKIN ISSUES. NOTED. CONT.POC.
[2018-02-15] VITALS (12 sets, daily range): BP systolic 43–114; BP diastolic 15–71
[2018-02-15] MEDS: ALBUTEROL FS 2.5 MG/0.5 ML VIAL.NEB NEB SCH ×4 (01:46→19:47)
[2018-02-15] MEDS: IPRATROPIUM NEB FS 0.5 MG/2.5 ML AMPUL.NEB NEB SCH ×4 (01:46→19:47)
--- NOTE | 2018-02-15 03:00 | NUR ---
RN NOTES RECEIVED PATIENT FROM ICU,ON THE VENTILATOR WITH TRACHEOSTOMY (PORTEX#7 ) on AC MODE.sLIGHTLY LETHARGIC BUT EASILY AROUSABLE,RESPONDS TO NAME CALLING ,FOLLOWS SIMPLE COMMANDS.MIDLINE VIA VEE,DILAYSIS CATHETER VIA LEFT SUBCLAVIAN,PEG TUBE WITH ON GOING TUBE FEEDING (NO RESIDUALS).MULTIPLE DRIED SCABS/LESIONS ALL OVER ARMS AND CHEST AND LEFT HANDS. COMFORT CARE DONE,NEEDS ATTENDED.
--- NOTE | 2018-02-15 03:06 | NUR ---
EXCHANGE OPERATOR - VERBAL REPORT WAS ENDORSED TO MARCY VINSON OVER TELEPHONE. PT. WAS TX'D TO RM#120, BED ONE. PT. WAS TX'D VIA ACLS PROTOCOL. SAFETY MAINTAINED. CONT.POC.
--- NOTE | 2018-02-15 05:00 | NUR ---
RN NOTES awake,alert on the ventilator ,not in any distress.AM care done,sacral decub dressing changed,tolerated turning and moving.
[2018-02-15 06:50] LABS: CALCIUM, SERUM 8.4 mg/dL (8.5-10.1); CREATININE 4.8 mg/dL (0.6-1.3); MAGNESIUM 1.8 mg/dL (1.8-2.4); PHOSPHORUS 3.1 mg/dL (2.5-4.9); POTASSIUM 3.7 mmol/L (3.5-5.1)
--- NOTE | 2018-02-15 07:05 | NUR ---
RN NOTES rEMAINS STABLE, BP IN THE 80'S BUT ASYMPTOMATIC .TOLERATING FEEDING ,NO EPISODE OF VOMITING .REPORT GIVEN TO MAKENZIE Barnes RN
[2018-02-15 07:50] LABS: BASOPHILS % (AUTO) 0.1 % (0.0-2.0); EOSINOPHILS % (AUTO) 0.3 % (0.0-6.0); HEMATOCRIT 23 % (39-51); HEMOGLOBIN 7.7 g/dL (13.5-17.5); LYMPHOCYTES # (AUTO) 0.7 /CMM (0.8-4.8); LYMPHOCYTES % (AUTO) 3.1 % (20.0-44.0); MEAN CORPUSCULAR HEMOGLOBIN 29 PG (26.0-33.0); MEAN CORPUSCULAR HGB CONC 33 g/dl (31.0-36.0); MEAN CORPUSCULAR VOLUME 88 fL (80-96); MONOCYTES # (AUTO) 0.4 /CMM (0.1-1.30); NEUTROPHILS # (AUTO) 20.5 /CMM (1.8-8.9); NEUTROPHILS % (AUTO) 94.5 % (43.0-81.0); PLATELET COUNT (AUTO) 52 /CMM (150-450); RDW COEFFICIENT OF VARIATION 19.8 (11.5-15.0); RED BLOOD CELL COUNT(AUTO) 2.63 MIL/uL (4.5-6.0); WHITE BLOOD COUNT (AUTO) 21.7 K/uL (4.3-11.0)
[2018-02-15] MEDS: PANTOPRAZOLE 40 MG/PACK PACK GT SCH (08:23)
[2018-02-15] MEDS: SEVELAMER CARBONATE 0.8 GM POWD.PACK GT SCH ×3 (08:23→17:00)
[2018-02-15] MEDS: LACTOBACILLUS RHAMNOSUS GG 1 EACH CAP.SPRINK PO SCH ×2 (08:24→16:06)
[2018-02-15] MEDS: HYDROCODONE/APAP 5/325MG 1 EACH TABLET GT SCH (08:24)
[2018-02-15] MEDS: MEROPENEM 500 MG in IV NS 0.9% 50 ML IV SCH (08:24)
[2018-02-15] MEDS: VIT B CMPLX 3/FA/VIT C/BIOTIN 1 TAB TABLET GT SCH (08:24)
[2018-02-15] MEDS: MIDODRINE HCL (5MG) 5 MG TABLET PO SCH ×3 (08:24→16:06)
[2018-02-15] MEDS: Z GUARD REMEDY 2 OZ OINT TP SCH (08:25)
[2018-02-15] MEDS: NYSTATIN TOP POWDER 15 GM BOTTLE TP SCH ×2 (08:25→16:07)
[2018-02-15] MEDS: PROSOURCE / PROSTAT (PYXIS) 30 ML UDC GT SCH (08:27)
--- NOTE | 2018-02-15 09:17 | NUR ---
received pt from security shift supervisor, alert, follows simple commands, V pacing, on the vent, lungs partially congested, no edema, GT to feeding, tolerating well, anuric, HD pt, v/s stable, no pain, pt turned and repositioned.
[2018-02-15 10:25] LABS: BAND % (MANUAL) 2 % (0.0-5.0); LYMPHOCYTES % (MANUAL) 1 % (16-48); MONOCYTES % (MANUAL) 1 % (0-11.0); NEUTROPHILS % (MANUAL) 96 (42-76)
--- NOTE | 2018-02-15 15:43 | NUR ---
RT NOTE RECEIVED PT TRACH PORTEX 7 ON MECH VENT WITH NOTED SETTINGS. VENT ALARM SET AND AUDIBLE. VENT PLUGGED INTO RED OUTLET, AMBU BAG AT BEDSIDE. BREATHING TX GIVEN PER MD'S ORDERED. NO ADVERSE REACTION NOTED. SX'D MODERATE AMT OF THICK YELLOW SECRETIONS WITH BLOOD TINGED. NO RESPIRATORY DISTRESS NOTED, WILL CONTINUE TO MONITOR.
--- NOTE | 2018-02-15 20:30 | NUR ---
RN NOTES @20:[address] ENRIQUEZ (WAGON DRIVER SALESPERSON FOR DR. MARTINEZ) REGARDING BP 63/15. RELAYED MESSAGE TO ELVIN (ANSWERING SERVICE). WAITING FOR ORDERS. @20:30 RECHECKED BP AT 84/35. NO SIGNS OF DISTRESS AT THIS TIME. ALERT PER BASELINE MENTAL STATUS. HR = 85. NO. NO CALL BACK FROM DR. ENRIQUEZ YET. WILL CONTINUE TO MONITOR PATIENT
[2018-02-16] VITALS (9 sets, daily range): BP systolic 70–143; BP diastolic 27–119
[2018-02-16] MEDS: ALBUTEROL FS 2.5 MG/0.5 ML VIAL.NEB NEB SCH ×4 (00:40→20:05)
[2018-02-16] MEDS: IPRATROPIUM NEB FS 0.5 MG/2.5 ML AMPUL.NEB NEB SCH ×4 (00:40→20:05)
[2018-02-16] MEDS: LACTOBACILLUS RHAMNOSUS GG 1 EACH CAP.SPRINK PO SCH ×2 (08:29→17:06)
[2018-02-16] MEDS: PANTOPRAZOLE 40 MG/PACK PACK GT SCH (08:29)
[2018-02-16] MEDS: SEVELAMER CARBONATE 0.8 GM POWD.PACK GT SCH ×3 (08:29→17:06)
[2018-02-16] MEDS: VIT B CMPLX 3/FA/VIT C/BIOTIN 1 TAB TABLET GT SCH (08:29)
[2018-02-16] MEDS: HYDROCODONE/APAP 5/325MG 1 EACH TABLET GT SCH (08:30)
[2018-02-16] MEDS: NYSTATIN TOP POWDER 15 GM BOTTLE TP SCH ×2 (08:31→17:07)
[2018-02-16] MEDS: PROSOURCE / PROSTAT (PYXIS) 30 ML UDC GT SCH (08:32)
[2018-02-16] MEDS: MEROPENEM 500 MG in IV NS 0.9% 50 ML IV SCH (08:58)
[2018-02-16 09:25] LABS: EOSINOPHILS % (AUTO) 2.5 % (0.0-6.0); LYMPHOCYTES # (AUTO) 0.6 /CMM (0.8-4.8); MONOCYTES # (AUTO) 0.2 /CMM (0.1-1.30); MONOCYTES % (AUTO) 1.9 % (2.0-12.0); NEUTROPHILS # (AUTO) 11.3 /CMM (1.8-8.9); RED BLOOD CELL COUNT(AUTO) 2.82 MIL/uL (4.5-6.0)
[2018-02-16 09:29] LABS: BASOPHILS # (AUTO) 0.1 /CMM (0.0-0.2); BASOPHILS % (AUTO) 1.1 % (0.0-2.0); HEMATOCRIT 25 % (39-51); HEMOGLOBIN 8.1 g/dL (13.5-17.5); LYMPHOCYTES % (AUTO) 5.1 % (20.0-44.0); MEAN CORPUSCULAR HEMOGLOBIN 29 PG (26.0-33.0); MEAN CORPUSCULAR HGB CONC 33 g/dl (31.0-36.0); MEAN CORPUSCULAR VOLUME 88 fL (80-96); NEUTROPHILS % (AUTO) 89.4 % (43.0-81.0); WHITE BLOOD COUNT (AUTO) 12.5 K/uL (4.3-11.0)
[2018-02-16 09:33] LABS: PLATELET COUNT (AUTO) 43 /CMM (150-450)
[2018-02-16] MEDS: MIDODRINE HCL (5MG) 5 MG TABLET PO SCH ×3 (09:48→17:06)
[2018-02-16 10:06] LABS: LYMPHOCYTES % (MANUAL) 4 % (16-48); MONOCYTES % (MANUAL) 1 % (0-11.0); NEUTROPHILS % (MANUAL) 95 (42-76)
[2018-02-16] MEDS: Z GUARD REMEDY 2 OZ OINT TP SCH (12:59)
[2018-02-16] MEDS: VANCOMYCIN 500 MG in IV D5W 100 ML IV PRN (12:59)
[2018-02-16] MEDS: SIMETHICONE SUSP 40 MG/0.6 ML BOTTLE PO PRN (13:16)
[2018-02-16] MEDS: ALBUMIN 25% 25 GM in PREMIX 1 EA IV PRN (13:30)
[2018-02-16] MEDS ORDERED: IV NS 0.9% 250 ML IV ONE (18:00)
[2018-02-16] MEDS ORDERED: IV NS 0.9% 500 ML IV ONE (19:00)
--- NOTE | 2018-02-16 19:00 | NUR ---
RN NOTE PT WAS READY TO BE DISCHARGED AT 1700, BUT AMBULANCE PERSONNEL COULD NOT GET BP READINGS UPON MULTIPLE ATTEMPTS AT SEVERAL SITES AND WITH SEVERAL BP CUFFS, UPON MANUAL BP CHECK 70/50 MMHG, DR CHAPARRO CALLED AND OBTAINED ORDER TO GIVE 25O ML NS BOLUS, MIDODRINE MEDICATION GIVEN ORDERED. LATER AFTER BOLUS BP RECHECKED 79/45 MMHG ON R ARM, DR CHAPARRO PAGED AGAIN, NEW ORDER FOR 500 ML NS BOLUS OBTAINED AND ADMINISTERED. WILL ENDORSE TO COMMERCIAL REAL ESTATE ASSISTANT NURSE.
--- NOTE | 2018-02-16 19:30 | NUR ---
TELE/RN NOTES: RECEIVED PT. IN BED W/ HOB ELEVATED. W/ MECHANICAL VENT TOLERATING SETTINGS WELL. NO FACIAL GRIMACES OR MOANING NOTED. W/ GTF IN PLACE PATENT AND INTACT W/ NO RESIDUAL NOTED. HAD HD TODAY. LEFT CHEST WALL HD CATH. LEFT ARM FISTULA NOT WORKING. HAS A MIDLINE VEE PATENT AND INTACT W/ TKO. NO S/S OF RESPIRATORY DISTRESS. CALL LIGHT W/ REACH. WILL CONTINUE TO MONITOR.
--- NOTE | 2018-02-16 20:15 | NUR ---
INTELLIGENCE ANALYST NOTES: BP REACHED TARUN 80/25. LLA 78/16. MANUAL 82/[address] CHAPARRO W/ ORDERS FOR STAT CBC, CMP AND TROPONIN.
[2018-02-16 21:17] LABS: BASOPHILS # (AUTO) 0.2 /CMM (0.0-0.2); BASOPHILS % (AUTO) 1.9 % (0.0-2.0); EOSINOPHILS % (AUTO) 3.3 % (0.0-6.0); HEMATOCRIT 27 % (39-51); HEMOGLOBIN 8.8 g/dL (13.5-17.5); LYMPHOCYTES # (AUTO) 0.6 /CMM (0.8-4.8); LYMPHOCYTES % (AUTO) 5.6 % (20.0-44.0); MEAN CORPUSCULAR HEMOGLOBIN 29 PG (26.0-33.0); MEAN CORPUSCULAR HGB CONC 32 g/dl (31.0-36.0); MEAN CORPUSCULAR VOLUME 89 fL (80-96); MONOCYTES # (AUTO) 0.3 /CMM (0.1-1.30); NEUTROPHILS # (AUTO) 9.8 /CMM (1.8-8.9); NEUTROPHILS % (AUTO) 86.2 % (43.0-81.0); RDW COEFFICIENT OF VARIATION 19.5 (11.5-15.0); RED BLOOD CELL COUNT(AUTO) 3.07 MIL/uL (4.5-6.0); WHITE BLOOD COUNT (AUTO) 11.3 K/uL (4.3-11.0)
[2018-02-16 21:19] LABS: PLATELET COUNT (AUTO) 38 /CMM (150-450)
[2018-02-16 21:39] LABS: ALANINE AMINOTRANSFERASE < 6 U/L (12-78); ALBUMIN 1.6 g/dL (3.4-5.0); ALKALINE PHOSPHATASE 83 U/L (46-116); ASPARTATE AMINOTRANSFERASE 11 U/L (15-37); BILIRUBIN,TOTAL 0.6 mg/dL (0.2-1.0); CALCIUM, SERUM 8.5 mg/dL (8.5-10.1); CARBON DIOXIDE 26 mmol/L (21-32); CHLORIDE 106 mmol/L (98-107); CREATININE 4.4 mg/dL (0.6-1.3); GLUCOSE 104 mg/dL (74-106); SODIUM SERUM 140 mmol/L (136-145); TOTAL PROTEIN, SERUM 5.7 g/dL (6.4-8.2); UREA NITROGEN, BLOOD 50 mg/dL (7-18)
[2018-02-16 21:40] LABS: TROPONIN I 0.126 ng/mL (0.00-0.056)
--- NOTE | 2018-02-16 22:16 | NUR ---
RN/ TELE NOTES: BP 109/81. WILL CONTINUE TO MONITOR. PAGED DR. CHAPARRO. WAITING FOR A CALL BACK.
[2018-02-16 22:28] LABS: BAND % (MANUAL) 1 % (0.0-5.0); EOSINOPHILS % (MANUAL) 3 % (0-4); LYMPHOCYTES % (MANUAL) 6 % (16-48); MONOCYTES % (MANUAL) 6 % (0-11.0); NEUTROPHILS % (MANUAL) 84 (42-76)
--- NOTE | 2018-02-16 23:40 | NUR ---
TELE/RN NOTES: 2ND PHONE CALL MADE TO DR. CHAPARRO. CALLED BACK AND INFORMED HIM ABOUT THE PLATELETS OF 38, TROP OF 0.126 BUN/CR. OF 50/4.4 W/ ORDERS TO REPEAT TROP ON 02/17/18 AM.
--- NOTE | 2018-02-16 23:48 | NUR ---
RN/TELE NOTES: ALSO UPDATED ABOUT LATEST BP 109/81.
[2018-02-17] VITALS (8 sets, daily range): BP systolic 77–118; BP diastolic 35–89
[2018-02-17] MEDS: IPRATROPIUM NEB FS 0.5 MG/2.5 ML AMPUL.NEB NEB SCH ×4 (01:44→19:15)
[2018-02-17] MEDS: ALBUTEROL FS 2.5 MG/0.5 ML VIAL.NEB NEB SCH ×4 (01:44→19:15)
--- NOTE | 2018-02-17 07:23 | NUR ---
TELE/RN NOTES: NO ACUTE CHANGES NOTED DURING THIS SHIFT. REPORT GIVEN TO AM NURSE FOR KASSANDRA.
--- NOTE | 2018-02-17 07:24 | NUR ---
TELE/RN NOTES: CALLED PHARMACY REGARDING SILVER NITRATE STICKS AND LIDOCAINE W/ EPI.
--- NOTE | 2018-02-17 07:30 | NUR ---
ARTIST'S MANAGER NOTES: RECEIVED PT ON BED ASLEEP WITH HOB ELEVATED. NO APPARENT DISTRESS NOTED. NO FACIAL GRIMACING OR ANY SIGNS OF PAIN NOTED. NO SOB. ON MECH VENT, SETTINGS ORDERED. GT INTACT AND PATENT, TOLERATING WELL. NO SIGNS OF ASPIRATION NOTED. ON TELE MONITOR V.PACING. KEPT CLEAN, DRY AND COMFORTABLE. SAFETY AND FALL PRECAUTIONS OBSERVED AND MAINTAINED. WILL CONTINUE TO MONITOR PT.
[2018-02-17] MEDS: SEVELAMER CARBONATE 0.8 GM POWD.PACK GT SCH ×3 (08:23→17:29)
[2018-02-17] MEDS: PROSOURCE / PROSTAT (PYXIS) 30 ML UDC GT SCH (08:23)
[2018-02-17] MEDS: HYDROCODONE/APAP 5/325MG 1 EACH TABLET GT SCH (08:23)
[2018-02-17] MEDS: LACTOBACILLUS RHAMNOSUS GG 1 EACH CAP.SPRINK PO SCH ×2 (08:23→17:29)
[2018-02-17] MEDS: PANTOPRAZOLE 40 MG/PACK PACK GT SCH (08:23)
[2018-02-17] MEDS: VIT B CMPLX 3/FA/VIT C/BIOTIN 1 TAB TABLET GT SCH (08:23)
[2018-02-17] MEDS: Z GUARD REMEDY 2 OZ OINT TP SCH (08:24)
[2018-02-17] MEDS: NYSTATIN TOP POWDER 15 GM BOTTLE TP SCH ×2 (08:25→17:31)
[2018-02-17] MEDS: MIDODRINE HCL (5MG) 5 MG TABLET PO SCH ×3 (08:26→17:28)
[2018-02-17] MEDS ORDERED: SILVER NITRATE APPLICATOR 1 EA BOX TP ONE (10:00)
[2018-02-17] MEDS ORDERED: SEVE0.8P GT (10:29)
[2018-02-17] MEDS ORDERED: ALBU2.5V13 NEB (10:29)
[2018-02-17] MEDS ORDERED: LACT1CAP72 PO (10:29)
[2018-02-17] MEDS ORDERED: ALLA266C2 TP (10:29)
[2018-02-17] MEDS ORDERED: SIME40DR7 PO (10:29)
[2018-02-17] MEDS ORDERED: Midodrine Hcl (5MG) PO (10:29)
[2018-02-17] MEDS ORDERED: LIDOCAINE 1%-EPI 1:100,000 20 ML VIAL TP ONE (13:30)
--- NOTE | 2018-02-17 16:20 | NUR ---
DOUGHNUT ICER MACHINE NOTES: REPORT GIVEN TO ISABEL AT [facility].
--- NOTE | 2018-02-17 16:30 | NUR ---
FREIGHT SEPARATOR NOTES: PT WAS READY TO BE DISCHARGED, HOWEVER, BP WAS LOW. MULTIPLE ATTEMPTS ON DIFFERENT SITES WERE MADE, DIFFERENT CUFFS AND MACHINE WERE ALSO USED. UPON MANUAL RECHECKED BP WAS 77/48MMHG. VIP STAVE BLOCK ROLLER DR. BANSAL WAS PAGED, STILL AWAITING FOR RESPONSE. MIDORDRINE GIVEN. WILL CONTINUE TO MONITOR PT CLOSELY AND RECHECK BP AGAIN
--- NOTE | 2018-02-17 18:00 | NUR ---
KEG RAISER NOTES: BP RECHECKED 100/67.
--- NOTE | 2018-02-17 18:37 | NUR ---
TIRE GROOVER NOTES: PT IN BED AWAKE AND ALERT. NO APPARENT DISTRESS NOTED. NO FACIAL GRIMACING OR ANY SIGNS OF PAIN NOTED. BREATHING EVEN AND UNLABORED WITH NORMAL RESPIRATIONS. LEAD ORACLE DEVELOPER DR. BANSAL CALLED BACK, NO NEW ORDERS AT THIS TIME ALSO STATED THAT PT IS OK TO BE DISCHARGED LONG PT IS STABLE. GT FEEDING INTACT AND PATENT, TOLERATING FEEDING WELL. NO SIGNS/SYMPTOMS OF ASPIRATION NOTED. KEPT CLEAN, DRY AND COMFORTABLE. TURNED AND REPOSITIONED NEEDED. WILL ENDORSE TO INSURANCE CLAIM AUDITOR FOR CONTINUITY OF CARE.
--- NOTE | 2018-02-17 20:00 | NUR ---
RN NOTES PT WAS NOT DISCHARGED BECAUSE B/P WAS TOO LOW. NOTIFIED. EKATERINA JOHNSON NOTIFIED.
--- NOTE | 2018-02-17 20:00 | NUR ---
RN INITIAL NOTES: RECEIVED PT ON BED ASLEEP WITH HOB ELEVATED. NO APPARENT DISTRESS NOTED. NO FACIAL GRIMACING OR ANY SIGNS OF PAIN NOTED. NO SOB. ON MECH VENT, SETTINGS ORDERED. GT INTACT AND PATENT, TOLERATING WELL. NO SIGNS OF ASPIRATION NOTED. ON TELE MONITOR V.PACING. KEPT CLEAN, DRY AND COMFORTABLE. SAFETY AND FALL PRECAUTIONS OBSERVED AND MAINTAINED. PT TO BE DISCHARGED TONIGHT. WILL CONTINUE TO MONITOR PT.
[2018-02-18] VITALS: BP 90/35
[2018-02-18] MEDS: ALBUTEROL FS 2.5 MG/0.5 ML VIAL.NEB NEB SCH ×4 (01:45→19:14)
[2018-02-18] MEDS: IPRATROPIUM NEB FS 0.5 MG/2.5 ML AMPUL.NEB NEB SCH ×4 (01:45→19:14)
[2018-02-18 04:00] VITALS: BP 90/35
[2018-02-18] MEDS: NEPRO 1,000 ML BOTTLE GT PRN (05:43)
--- NOTE | 2018-02-18 07:03 | NUR ---
RN CLOSING NOTES: NO ACUTE CHANGES NOTED DURING THIS SHIFT. PT B/P REMAINED LOW, PTS BASELINE IS LOW B/P. WILL ENDORSE TO AM NURSE FOR KASSANDRA.
--- NOTE | 2018-02-18 07:15 | NUR ---
HEBREW TEACHER INITIAL NOTES RECEIVED REPORT AND PT FROM PM NURSE. PT RESTING IN BED, NO ACUTE DISTRESS NOTED. NO SOB, A&O X1-2 EYES OPEN, ON VENT SETTINGS ORDERED BY MD SAT ABOVE 97%, ON TELE MON VPACING HR 75, GTUBE FEEDING TOLERATING WELL NO RESIDUAL, RT UPPER MIDLINE NO INFILTRATION, LT ARM AV SHUNT PATENT, LT SUBCLAVIN FISTULA INTACT, ALL SAFETY MEASURES INITIATED, KCI MATTRESS ON, RESTRAINTS ON PT, PT COOPERATIVE AT THIS TIME, PTS BP 83/25 WILL CONTINUE TO MONITOR.
[2018-02-18 08:00] VITALS: BP 76/34
[2018-02-18] MEDS: VIT B CMPLX 3/FA/VIT C/BIOTIN 1 TAB TABLET GT SCH (08:36)
[2018-02-18] MEDS: LACTOBACILLUS RHAMNOSUS GG 1 EACH CAP.SPRINK PO SCH ×2 (08:36→17:21)
[2018-02-18] MEDS: PANTOPRAZOLE 40 MG/PACK PACK GT SCH (08:36)
[2018-02-18] MEDS: SEVELAMER CARBONATE 0.8 GM POWD.PACK GT SCH ×3 (08:36→17:21)
[2018-02-18] MEDS: MIDODRINE HCL (5MG) 5 MG TABLET PO SCH ×3 (08:36→17:21)
[2018-02-18] MEDS: PROSOURCE / PROSTAT (PYXIS) 30 ML UDC GT SCH (08:37)
[2018-02-18] MEDS: HYDROCODONE/APAP 5/325MG 1 EACH TABLET GT SCH (08:37)
[2018-02-18] MEDS: Z GUARD REMEDY 2 OZ OINT TP SCH (08:38)
[2018-02-18] MEDS: NYSTATIN TOP POWDER 15 GM BOTTLE TP SCH ×2 (08:40→17:55)
[2018-02-18] MEDS: IV NS 0.9% 250 ML IV PRN (10:42)
[2018-02-18 11:04] LABS: HEMATOCRIT 26 % (39-51); HEMOGLOBIN 8.2 g/dL (13.5-17.5); LYMPHOCYTES % (AUTO) 3.9 % (20.0-44.0); MEAN CORPUSCULAR HEMOGLOBIN 29 PG (26.0-33.0); MEAN CORPUSCULAR HGB CONC 32 g/dl (31.0-36.0); MEAN CORPUSCULAR VOLUME 91 fL (80-96); NEUTROPHILS % (AUTO) 90.1 % (43.0-81.0); PLATELET COUNT (AUTO) 50 /CMM (150-450); RDW COEFFICIENT OF VARIATION 20.2 (11.5-15.0); RED BLOOD CELL COUNT(AUTO) 2.86 MIL/uL (4.5-6.0); WHITE BLOOD COUNT (AUTO) 9.3 K/uL (4.3-11.0)
[2018-02-18 11:05] LABS: BASOPHILS % (AUTO) 0.5 % (0.0-2.0); MONOCYTES % (AUTO) 2.5 % (2.0-12.0)
[2018-02-18 11:12] LABS: ALANINE AMINOTRANSFERASE < 6 U/L (12-78); ALKALINE PHOSPHATASE 85 U/L (46-116); ASPARTATE AMINOTRANSFERASE 19 U/L (15-37); BILIRUBIN,TOTAL 0.5 mg/dL (0.2-1.0); CALCIUM, SERUM 8.2 mg/dL (8.5-10.1); CARBON DIOXIDE 25 mmol/L (21-32); CHLORIDE 105 mmol/L (98-107); CREATININE 5.1 mg/dL (0.6-1.3); GLUCOSE 112 mg/dL (74-106); MAGNESIUM 1.7 mg/dL (1.8-2.4); PHOSPHORUS 3.2 mg/dL (2.5-4.9); POTASSIUM 4.1 mmol/L (3.5-5.1); SODIUM SERUM 140 mmol/L (136-145); TOTAL PROTEIN, SERUM 5.5 g/dL (6.4-8.2); UREA NITROGEN, BLOOD 61 mg/dL (7-18)
[2018-02-18 11:17] LABS: ALBUMIN 1.4 g/dL (3.4-5.0)
[2018-02-18 11:56] LABS: BAND % (MANUAL) 3 % (0.0-5.0)
[2018-02-18 11:57] LABS: EOSINOPHILS % (MANUAL) 1 % (0-4); LYMPHOCYTES % (MANUAL) 2 % (16-48); MONOCYTES % (MANUAL) 3 % (0-11.0); NEUTROPHILS % (MANUAL) 91 (42-76)
[2018-02-18 12:00] VITALS: BP_SYST 73; BP_SYST 90; BP_DIAS 34; BP_DIAS 50
--- NOTE | 2018-02-18 12:02 | NUR ---
SHOE PULLER NOTES PER MD CHAPARRO ORDERS IF BP ABOVE 90 SYSTOLIC THEN DC BACK TO [facility].
[2018-02-18] MEDS ORDERED: SILVER NITRATE APPLICATOR 1 EA BOX TP STA (13:38)
[2018-02-18] MEDS: HYDROCODONE/APAP 5/325MG 1 EACH TABLET GT PRN (13:49)
[2018-02-18] MEDS ORDERED: LIDOCAINE 1%-EPI 1:100,000 20 ML VIAL TP ONE (14:00)
--- NOTE | 2018-02-18 14:27 | NUR ---
BOX CAR WASHER NOTES PT HAD ABDOMINAL ABSCESS DRAINAGE PERFORMED WITH MD MARTINEZ AT BEDSIDE CONSENT SIGNED AND COMPLETED INSIDE CHART, SWAB SENT TO LAB FOR ANALYSIS.
[2018-02-18 16:00] VITALS: BP_SYST 83; BP_DIAS 30; BP_DIAS 50
[2018-02-18] MEDS ORDERED: MEROPENEM 500 MG in IV NS 0.9% 50 ML IV SCH (17:00)
[2018-02-18] MEDS ORDERED: VANCOMYCIN 1 GM in IV D5W 250 ML IV ONE (18:00)
[2018-02-18] MEDS ORDERED: FEE PK DOSING 1 MIN EA MC ONE (18:04)
--- NOTE | 2018-02-18 18:43 | NUR ---
FISH RECEIVER ENDING NOTES PT RESTING IN BED, NO ACUTE CHANGES NOTED OR SOB, ALL DUE MEDS GIVEN, ALL NEEDS MET, IV SITES INTACT AND PATENT, PTS BP STILL LOW 80'S SYSTOLIC AND 50'S DIASTOLIC, MD WALTERS AWARE AND SAID TO CONTINUE MIDODRINE MEDS AND CONTINUE TO MONITOR IF BP RISES ABOVE 90 SYSTOLIC THEN OK TO TRANSFER BACK TO [facility], INSPECTOR POISING ALEX AWARE OF NO TRANSFER/DC TODAY SINCE PTS BP IS LOW, WILL CONTINUE CARE AND ENDORSE TO PM NURSE.
--- NOTE | 2018-02-18 19:14 | NUR ---
PT RECEIVED WITH A PORTEX 7 TRACH ON THE VENT WITH NOTED SETTINGS. BREATHING TX GIVEN PER MD'S ORDER.NO ADVERSE REACTION NOTED. SUCTIONED MODERATE AMOUNT OF YELLOW THICK SECRETIONS . VENT ALARMS ARE SET AND AUDIBLE WITH AMBU BAG AT BEDSIDE. DELINQUENCY PREVENTION SOCIAL WORKER CUFF PRESSURE NOTED. VENT IS PLUGGED INTO RED OUTLET. NO RESPIRATORY DISTRESS NOTED AT THIS TIME, WILL CONTINUE TO MONITOR.
[2018-02-18 20:00] VITALS: BP 136/93
[2018-02-18] MEDS: MEROPENEM 500 MG in IV NS 0.9% 50 ML IV SCH (20:02)
[2018-02-19] VITALS (7 sets, daily range): BP systolic 76–149; BP diastolic 21–103
[2018-02-19] MEDS: HYDROCODONE/APAP 5/325MG 1 EACH TABLET GT PRN (01:12)
[2018-02-19] MEDS: IPRATROPIUM NEB FS 0.5 MG/2.5 ML AMPUL.NEB NEB SCH ×4 (01:42→20:22)
[2018-02-19] MEDS: ALBUTEROL FS 2.5 MG/0.5 ML VIAL.NEB NEB SCH ×4 (01:42→20:22)
[2018-02-19] MEDS: NEPRO 1,000 ML BOTTLE GT PRN (05:47)
--- NOTE | 2018-02-19 06:30 | NUR ---
RN CLOSING NOTES: NO ACUTE CHANGES NOTED DURING THIS SHIFT. WILL ENDORSE TO AM NURSE FOR.
--- NOTE | 2018-02-19 07:15 | NUR ---
PLATEN GRINDER INITIAL NOTES RECEIVED REPORT AND PT FROM PM NURSE. PT RESTING IN BED WITH NO ACUTE DISTRESS OR SOB, ON [facility] VENT SETTINGS ORDERED BY MD SAT ABOVE 97%, A&O X1 OPENS EYES TO TOUCH AND PAIN, ON TELE MON VPACING WITH HR 80, PT ANURIC, ON GTUBE FEEDING NEPHRO @ 45 ML/HR NO RESIDUAL NOTED TOLERATING WELL, LT CW HD CATH INTACT, LT ARM SUBCLAVIN HD CATH, RT UPPER ARM MIDLINE INTACT NO INFILTRATION NOTED, ALL SAFETY MEASURES INITIATED, KCI MATTRESS ON, WILL CONTINUE TO MONITOR.
[2018-02-19 08:19] LABS: CALCIUM, SERUM 8.5 mg/dL (8.5-10.1); CREATININE 5.4 mg/dL (0.6-1.3); POTASSIUM 4.5 mmol/L (3.5-5.1)
[2018-02-19] MEDS: SEVELAMER CARBONATE 0.8 GM POWD.PACK GT SCH ×3 (08:45→17:33)
[2018-02-19] MEDS: LACTOBACILLUS RHAMNOSUS GG 1 EACH CAP.SPRINK PO SCH ×2 (08:45→17:33)
[2018-02-19] MEDS: MIDODRINE HCL (5MG) 5 MG TABLET PO SCH ×3 (08:46→17:34)
[2018-02-19] MEDS: HYDROCODONE/APAP 5/325MG 1 EACH TABLET GT SCH (08:46)
[2018-02-19] MEDS: VIT B CMPLX 3/FA/VIT C/BIOTIN 1 TAB TABLET GT SCH (08:46)
[2018-02-19] MEDS: PROSOURCE / PROSTAT (PYXIS) 30 ML UDC GT SCH (08:47)
[2018-02-19] MEDS: NYSTATIN TOP POWDER 15 GM BOTTLE TP SCH ×2 (08:47→17:34)
[2018-02-19] MEDS: PANTOPRAZOLE 40 MG/PACK PACK GT SCH (08:49)
[2018-02-19] MEDS: Z GUARD REMEDY 2 OZ OINT TP SCH (08:50)
[2018-02-19] MEDS ORDERED: VANCOMYCIN 500 MG in IV NS 0.9% 100 ML IV PRN (16:00)
--- NOTE | 2018-02-19 17:15 | NUR ---
NETWORK DESIGN ARCHITECT NOTES CALLED AND GAVE REPORT TO BRUCE VINSON AT [facility], PT WILL BE DC AT 8 PM TODAY , PER JUAN ORDER GIVE 1/1 NS 500 CC BOLUS HALF HOUR PRIOR TO DC TO MAINTAIN BP ABOVE 90 SYSTOLIC, WILL CONTINUE TO MONITOR.
[2018-02-19] MEDS ORDERED: IV NS 0.45% 500 ML IV ONE (18:30)
--- NOTE | 2018-02-19 18:48 | NUR ---
GRIT REMOVAL OPERATOR ENDING NOTES PT RESTING IN BED, VENT MD ORDERED SAT ABOVE 97%, LAST BP 129/42, DC PAPERWORK COMPLETED PLACED IN CHART, REPORT GIVEN TO BRUCE VINSON AT [facility] PT COMFORTABLE, NO DISTRESS NOTED, WOUND TX DONE MD ORDERED, ALL DUE MEDS GIVEN, 1/2 NS BOLUS INFUSING AT THIS TIME, WILL WAIT FOR FOUNDATION ASSISTANT BY AMBULANCE,. IV ACCESS WILL STAY IN PLACE, HD ACCESS INTACT AND PATENT, WILL ENDORSE TO PM NURSE.
--- NOTE | 2018-02-19 19:30 | NUR ---
ACTIVITIES SPECIALIST NOTES RECEIVED PT ON BED. A/OX1 . ON MECH VENT SETTING SATURATING WELL. ON TELE MONITOR VPACING HR 70S. IV ACESS ON EVE MIDLINE PATENT AND INTACT. AND HD ACESS ON LCW NO SIGN OF BLEEDING. ON GTUBE FEEDING NO RESIDUAL NOTED AT THIS TIME. HEAD OF BED ELEVATED. SIDE RAILS UP. CALL LIGHT WITHIN REACH. BED ALARM ON. WILL CONTINUE TO MONITOR PT CLOSELY.
--- NOTE | 2018-02-19 19:45 | NUR ---
PRIVATE SECTOR EXECUTIVE NOTES TRANSFER TEAM REFUSED TO TAKE THE PT DUE TO LOW BLOOD PRESSURE OF 80S. EXPLAINED TO THEM THAT THE PT HAS PVD AND THAT HIS BLOOD PRESSURE IS ALWAYS LOW. TRANSFER TEAM STILL REFUSED. WILL NOTIFY DU ARGUELLO REGARDING THE SITUATION.
--- NOTE | 2018-02-19 20:00 | NUR ---
ROLLS MILL OPERATOR NOTES CALLED DR JAMES MARTINEZ REGARDING PATIENTS TRANSFER BEING ON HOLD DUE TO UNSTABLE BLOOD PRESSURE PER DR MARTINEZ HOLD THE DISCHARGE ORDER FOR NOW.
[2018-02-19] MEDS: MEROPENEM 500 MG in IV NS 0.9% 50 ML IV SCH (20:22)
[2018-02-20] VITALS: BP 105/87
[2018-02-20] MEDS: ALBUTEROL FS 2.5 MG/0.5 ML VIAL.NEB NEB SCH ×4 (01:54→19:29)
[2018-02-20] MEDS: IPRATROPIUM NEB FS 0.5 MG/2.5 ML AMPUL.NEB NEB SCH ×4 (01:54→19:29)
[2018-02-20] MEDS: NEPRO 1,000 ML BOTTLE GT PRN (03:51)
[2018-02-20 04:00] VITALS: BP 90/45
[2018-02-20 07:27] LABS: CALCIUM, SERUM 8.7 mg/dL (8.5-10.1); CREATININE 5.9 mg/dL (0.6-1.3); POTASSIUM 4.4 mmol/L (3.5-5.1)
--- NOTE | 2018-02-20 07:30 | NUR ---
PAPER BOX CUTTER NOTES NO ACUTE CHANGES NOTED DURING THE SHIFT. DUE MEDS GIVEN. PROVIDED COMFORT AND SAFETY. WOUND CARE DONE. ENDORSE TO THE AM NURSE FOR KASSANDRA.
[2018-02-20 08:00] VITALS: BP 73/35
--- NOTE | 2018-02-20 08:00 | NUR ---
TELE1/RN AM SHIFT INITIAL NOTES RECEIVED PT AWAKE IN BED, PT A/O X 1, NO ACUTE DISTRESS OR GRIMACING NOTED. VENT DEPENDENT, RATES SET PRESCRIBED, SATURATING @ 100%, LUNG SOUNDS CLEAR, SUCTIONED FOR AIRWAY CLEARANCE, RESPIRATIONS EVEN & UNLABORED. V-PACING, HR 73. MIDLINE PATENT WITH NO S/S OF INFECTION. GTF ON GOING @ 45CC/HR, NO GASTRIC RESIDUAL NOTED, FLUSHED, PATENT. PT IS COMFORTABLE, SCHEDULED AM MEDS TO BE GIVEN. CL WITHIN REACHED AND SAFETY MAINTAINED. ON GOING MONITORING.
[2018-02-20] MEDS: LACTOBACILLUS RHAMNOSUS GG 1 EACH CAP.SPRINK PO SCH ×2 (08:21→18:12)
[2018-02-20] MEDS: VIT B CMPLX 3/FA/VIT C/BIOTIN 1 TAB TABLET GT SCH (08:21)
[2018-02-20] MEDS: MIDODRINE HCL (5MG) 5 MG TABLET PO SCH ×3 (08:21→18:13)
[2018-02-20] MEDS: SEVELAMER CARBONATE 0.8 GM POWD.PACK GT SCH ×3 (08:21→18:12)
[2018-02-20] MEDS: Z GUARD REMEDY 2 OZ OINT TP SCH (08:22)
[2018-02-20] MEDS: PROSOURCE / PROSTAT (PYXIS) 30 ML UDC GT SCH (08:22)
[2018-02-20] MEDS: NYSTATIN TOP POWDER 15 GM BOTTLE TP SCH ×2 (08:22→18:13)
[2018-02-20] MEDS: PANTOPRAZOLE 40 MG/PACK PACK GT SCH (08:22)
[2018-02-20] MEDS: HYDROCODONE/APAP 5/325MG 1 EACH TABLET GT SCH (10:49)
[2018-02-20 12:00] VITALS: BP 76/45
[2018-02-20] MEDS ORDERED: DAKINS QUARTER STRENGTH (0.125%) 480 ML BOTTLE TOP SCH (14:00)
[2018-02-20 16:00] VITALS: BP 83/45
[2018-02-20] MEDS: ALBUMIN 25% 25 GM in PREMIX 1 EA IV PRN (17:33)
[2018-02-20] MEDS ORDERED: FEE PK DOSING 1 MIN EA MC ONE (19:13)
--- NOTE | 2018-02-20 19:54 | NUR ---
TELE1/RN AM SHIFT END NOTES ALL NEEDS MET, NO ACUTE CHANGE OF CONDITION NOTED DURING THE SHIFT. AWAITING FOR DISCHARGE TO SNF TONIGHT. ENDORSED TO PM NURSE TO CONTINUE CARE. CL WITHIN REACHED AND SAFETY MAINTAINED.
[2018-02-20 20:00] VITALS: BP 133/100
--- NOTE | 2018-02-20 20:00 | NUR ---
HEAD LIBRARIAN NOTES, REPORT GIVEN TO MAKENZIE FROM [facility], AWAITING FOR AMBULANCE ESTIMATE TIME 830PM.
[2018-02-20] MEDS ORDERED: TOBRAMYCIN IV ONE (20:30)
[2018-02-20] MEDS ORDERED: D5W IV ONE (20:30)
[2018-02-20] MEDS ORDERED: LINEZOLID 600 MG TABLET PO SCH (21:00)
--- NOTE | 2018-02-20 21:20 | NUR ---
DRIVER EDUCATION ROAD INSTRUCTOR NOTES, AMBULANCE ARRIVED AND REPORT GIVEN TO EMT, PATIENT IS LEAVING IN STABLE CONDITION ACCOMPANIED BY 2EMTS AND RT, TELE MONITOR REMOVED, PATIENT DRY AND CLEAN AND ALL WOUND WELL DRESSED AND CLEAN, AND HEEL PROTECTORS, PATIENT WILL LEAVE WITH VEE MIDLINE IN PLACE FOR CONTINUATION OF IV ANTIBIOTICS.
--- NOTE | 2018-02-20 21:30 | NUR ---
REVENUE MANAGER NOTES, PATIENT LEFT AT THIS TIME IN STABLE CONDITION WITH FOLLOWING VS 138/100, 89, 02 95%, 20, 97.5, O/5, ON MECHANICAL VENTILATOR TOLERATING SETTING WELL AC 16, TV 500, F1O2 40%, PEEP 0, PATIENT ALERT AND ORIENTED TO SELF WHEN CALL BY NAME, NO SOB/ACUTE DISTRESS NOTED AT THIS TIME, SUCTIONING PROVIDED PRIOR TO DISCHARGE WITH OPTIMAL SATURATION LEVEL AT THIS TIME, LEFT IN COMPANY OF 2EMTS AND RT BY AMBUL AMBULANCE VIA GURNEY.
== END 2018-02-20 21:41 | DRG 853 ==
LOC: ER 11:04 → TELE 13:12 → ICU 01-30 19:16 → TELE1 02-02 19:20 → ICU 02-10 16:58 → TELE-TD 02-15 02:50 → TELE1 02-16 15:38
PROVIDERS: ADMIT Internal Medicine Nephrology; ATTEND Internal Medicine Nephrology
PROC: 5A1955Z Respiratory Ventilation, Greater than 96 Consecutive Hours (ICD-10-PCS; principal; 2018-01-28)
PROC: 30233N1 Transfusion of Nonautologous Red Blood Cells into Peripheral Vein, Percutaneous Approach (ICD-10-PCS; principal; 2018-01-28)
PROC: 5A1D70Z Performance of Urinary Filtration, Intermittent, Less than 6 Hours Per Day (ICD-10-PCS; principal; 2018-01-28)
PROC: 05H533Z Insertion of Infusion Device into Right Subclavian Vein, Percutaneous Approach (ICD-10-PCS; 2018-01-30)
PROC: 5A1D70Z Performance of Urinary Filtration, Intermittent, Less than 6 Hours Per Day (ICD-10-PCS; 2018-01-30)
PROC: B546ZZA Ultrasonography of Right Subclavian Vein, Guidance (ICD-10-PCS; 2018-01-30)
PROC: 5A1D70Z Performance of Urinary Filtration, Intermittent, Less than 6 Hours Per Day (ICD-10-PCS; 2018-02-01)
PROC: 5A1D70Z Performance of Urinary Filtration, Intermittent, Less than 6 Hours Per Day (ICD-10-PCS; 2018-02-02)
PROC: 5A1D70Z Performance of Urinary Filtration, Intermittent, Less than 6 Hours Per Day (ICD-10-PCS; 2018-02-04)
PROC: 5A1D70Z Performance of Urinary Filtration, Intermittent, Less than 6 Hours Per Day (ICD-10-PCS; 2018-02-06)
PROC: 05HN33Z Insertion of Infusion Device into Left Internal Jugular Vein, Percutaneous Approach (ICD-10-PCS; 2018-02-09)
PROC: B514YZA Fluoroscopy of Left Jugular Veins using Other Contrast, Guidance (ICD-10-PCS; 2018-02-09)
PROC: 5A1D70Z Performance of Urinary Filtration, Intermittent, Less than 6 Hours Per Day (ICD-10-PCS; 2018-02-09)
PROC: 5A1D70Z Performance of Urinary Filtration, Intermittent, Less than 6 Hours Per Day (ICD-10-PCS; 2018-02-10)
PROC: 5A1D70Z Performance of Urinary Filtration, Intermittent, Less than 6 Hours Per Day (ICD-10-PCS; 2018-02-12)
PROC: 0D20XUZ Change Feeding Device in Upper Intestinal Tract, External Approach (ICD-10-PCS; 2018-02-12)
PROC: 0KBP0ZZ Excision of Left Hip Muscle, Open Approach (ICD-10-PCS; 2018-02-12)
PROC: 0KBN0ZZ Excision of Right Hip Muscle, Open Approach (ICD-10-PCS; 2018-02-12)
PROC: 0W9G3ZZ Drainage of Peritoneal Cavity, Percutaneous Approach (ICD-10-PCS; 2018-02-14)
PROC: 5A1D70Z Performance of Urinary Filtration, Intermittent, Less than 6 Hours Per Day (ICD-10-PCS; 2018-02-14)
PROC: 5A1D70Z Performance of Urinary Filtration, Intermittent, Less than 6 Hours Per Day (ICD-10-PCS; 2018-02-16)
PROC: 0J980ZZ Drainage of Abdomen Subcutaneous Tissue and Fascia, Open Approach (ICD-10-PCS; 2018-02-18)
PROC: 5A1D70Z Performance of Urinary Filtration, Intermittent, Less than 6 Hours Per Day (ICD-10-PCS; 2018-02-20)
DX: A41.9 Sepsis, unspecified organism (principal); L89.154 Pressure ulcer of sacral region, stage 4; L89.323 Pressure ulcer of left buttock, stage 3; L89.313 Pressure ulcer of right buttock, stage 3; L89.123 Pressure ulcer of left upper back, stage 3; N18.6 End stage renal disease; L89.894 Pressure ulcer of other site, stage 4; I21.A1 Myocardial infarction type 2; G93.40 Encephalopathy, unspecified; J18.9 Pneumonia, unspecified organism; R65.21 Severe sepsis with septic shock; R53.2 Functional quadriplegia; J96.10 Chronic respiratory failure, unspecified whether with hypoxia or hypercapnia; T82.868A Thrombosis due to vascular prosthetic devices, implants and grafts, initial encounter; R18.8 Other ascites; Z99.11 Dependence on respirator [ventilator] status; I96 Gangrene, not elsewhere classified; K56.609 Unspecified intestinal obstruction, unspecified as to partial versus complete obstruction; E27.40 Unspecified adrenocortical insufficiency; K56.600 Partial intestinal obstruction, unspecified as to cause; L03.311 Cellulitis of abdominal wall; E87.2 Acidosis; K56.7 Ileus, unspecified; K94.23 Gastrostomy malfunction; L02.211 Cutaneous abscess of abdominal wall; I13.2 Hypertensive heart and chronic kidney disease with heart failure and with stage 5 chronic kidney disease, or end stage renal disease; K21.9 Gastro-esophageal reflux disease without esophagitis; D64.9 Anemia, unspecified; I25.2 Old myocardial infarction; I25.10 Atherosclerotic heart disease of native coronary artery without angina pectoris; B86 Scabies; J84.10 Pulmonary fibrosis, unspecified; D63.8 Anemia in other chronic diseases classified elsewhere; E16.2 Hypoglycemia, unspecified; D69.6 Thrombocytopenia, unspecified; E88.09 Other disorders of plasma-protein metabolism, not elsewhere classified; G62.9 Polyneuropathy, unspecified; R62.7 Adult failure to thrive; Z95.0 Presence of cardiac pacemaker; Z95.1 Presence of aortocoronary bypass graft; Z99.2 Dependence on renal dialysis; E83.9 Disorder of mineral metabolism, unspecified; R13.10 Dysphagia, unspecified; L98.8 Other specified disorders of the skin and subcutaneous tissue; L89.510 Pressure ulcer of right ankle, unstageable; I48.2 Chronic atrial fibrillation; S81.802A Unspecified open wound, left lower leg, initial encounter; S81.801A Unspecified open wound, right lower leg, initial encounter; X58.XXXA Exposure to other specified factors, initial encounter; Y93.9 Activity, unspecified; Y92.129 Unspecified place in nursing home as the place of occurrence of the external cause; Y84.8 Other medical procedures as the cause of abnormal reaction of the patient, or of later complication, without mention of misadventure at the time of the procedure; S30.812A Abrasion of penis, initial encounter; J98.2 Interstitial emphysema; E65 Localized adiposity; K74.60 Unspecified cirrhosis of liver; L89.620 Pressure ulcer of left heel, unstageable; L89.610 Pressure ulcer of right heel, unstageable; I50.9 Heart failure, unspecified; Y71.2 Prosthetic and other implants, materials and accessory cardiovascular devices associated with adverse incidents; Y83.2 Surgical operation with anastomosis, bypass or graft as the cause of abnormal reaction of the patient, or of later complication, without mention of misadventure at the time of the procedure; Z95.3 Presence of xenogenic heart valve; I73.9 Peripheral vascular disease, unspecified; L30.9 Dermatitis, unspecified; R32 Unspecified urinary incontinence
CPT/HCPCS: 31720; 36415; 36569; 36600; 71045-TC; 74018; 76942-TC; 80048-TC; 80053-TC; 80061-TC; 80076-TC; 80202-TC; 82040-TC; 82533; 82728-TC; 82803-TC; 82962-TC; 83540-TC; 83605-TC; 83735-TC; 84100-TC; 84134-TC; 84155-TC; 84439-TC; 84443-TC; 84484-TC; 85025-TC; 85610-TC; 85730-TC; 86850-TC; 86921-TC; 87040-TC; 87070-TC; 87081-TC; 87186-TC; 88305-TC; 88312-TC; 89051-TC; 90935-TC; 93307-TC; 94002-TC; 94003-TC; 94760-TC; 94762-TC; 99082-TC; A4216; A4217; A4606; A6253; A6402; A6403; A7526; C1750; C1769; J0690; J0885; J1100; J1644; J1720; J1885; J2185; J2370; J2405; J2704; J3260; J3370; J3480; J3490; J7030; J7040; J7042; J7050; J7060; P9016-BL; P9047; Q0163; Q9963; Z7610